=== PATIENT | male | born 1945 | race Caucasian/White ===

== ENCOUNTER 2017-04-25 14:09 | Inpatient (IN) | payer MEDICARE ==
[2017-04-25] MEDS ORDERED: ACETAMINOPHEN TAB 500 MG TAB PO STA (14:44)
[2017-04-25] MEDS ORDERED: HYDROmorphone 1 MG/ML 1 ML SYRINGE IVP STA ×2 (14:45)
--- NOTE | 2017-04-25 14:51 | ED ---
General Adult HPI - General Chief complaint: Extremity Injury, Lower Stated complaint: R leg swelling Time Seen by Provider: 04/25/17 14:26 Source: patient, EMS, RN notes reviewed Mode of arrival: EMS Limitations: no limitations - History of Present Illness Initial comments: Patient is a pleasant 72-year-old male presenting to the emergency Department with complaints of right leg pain. Patient states he felt unwell last night and could no longer walk. Patient laid down on the ground. Patient states he has been lying on the ground since that time. Patient is somewhat a poor historian. Patient has not drank anything since last night and feels thirsty. Patient does complain of severe right leg pain. Patient does have history of chronic right leg problems and has had wound care however he does not know who did wound care. Patient does have a history of atrial fibrillation. Patient has pain with movement of the right leg however denies weakness. Patient is unaware of any fevers. Patient states he laid on the ground all night because he was too weak to get up and move around. - Related Data Home Medications Medication Instructions Recorded Confirmed Digoxin [Lanoxin] 125 mcg PO DAILY 12/29/14 04/25/17 Simvastatin [Zocor] 20 mg PO HS 12/29/14 04/25/17 ALPRAZolam [Xanax] 0.25 mg PO BID 04/25/17 04/25/17 Furosemide [Lasix] 20 mg PO BID 04/25/17 04/25/17 Hydrocodone/Acetaminophen [[place] 1 tab PO Q4H 04/25/17 04/25/17 10-325] Lisinopril [Prinivil] 10 mg PO DAILY 04/25/17 04/25/17 Previous Rx's Medication Instructions Recorded Metoprolol Tartrate [Lopressor] 50 mg PO BID tab 01/09/15 Tamsulosin [Flomax] 0.4 mg PO BID cap.er.24h 01/09/15 Allergies Allergy/AdvReac Type Severity Reaction Status Date / Time Sulfa (Sulfonamide Allergy Anaphylaxis Verified 04/25/17 14:25 Antibiotics) Anesthetics - Noemi Type- AdvReac Anaphylaxis Verified 04/25/17 14:25 Parabens [Anesthetics - Noemi Type] celecoxib [From Celebrex] AdvReac Unknown Verified 04/25/17 14:25 Review of Systems ROS Statement: Those systems with pertinent positive or pertinent negative responses have been documented in the HPI. ROS Other: All systems not noted in ROS Statement are negative. Constitutional: Denies: chills Eyes: Denies: eye pain ENT: Denies: ear pain Respiratory: Denies: cough Cardiovascular: Denies: chest pain Endocrine: Reports: fatigue Gastrointestinal: Denies: abdominal pain Genitourinary: Denies: dysuria Musculoskeletal: Denies: back pain Skin: Reports: rash Neurological: Denies: headache Past Medical History Past Medical History: GERD/Reflux, Hyperlipidemia, Hypertension, Memory Impairment, Osteoarthritis (OA), Prostate Disorder Additional Past Medical History / Comment(s): Coronary artery disease with previous bypass surgery and a mitral valve replacement surgery with tissue valve approximately 25 years ago, severe degenerative arthritis, dementia, BPH, hypertension History of Any Multi-Drug Resistant Organisms: None Reported Past Surgical History: Cardiac Valve Replacement, Cholecystectomy, Heart Catheterization, Orthopedic Surgery Additional Past Surgical History / Comment(s): PIG VALVE, CATARACT-LENS IMPLANTS Past Anesthesia/Blood Transfusion Reactions: Previous Problems w/ Anesthesia Additional Past Anesthesia/Blood Transfusion Reaction / Comment(s): HAD SEVERE BLOOD PRESSURE PROBLEMS AFTER GALLBLADDER SX Past Psychological History: Depression Smoking Status: Former smoker Past Drug Use History: None Reported - Past Family History Father Family Medical History: Unable to Obtain Mother Family Medical History: Unable to Obtain General Exam Limitations: no limitations General appearance: alert, in distress (Patient does appear uncomfortable.) Head exam: Present: atraumatic, normocephalic Eye exam: Present: normal appearance, PERRL ENT exam: Present: mucous membranes dry Neck exam: Present: normal inspection Respiratory exam: Present: normal lung sounds bilaterally Cardiovascular Exam: Present: tachycardia GI/Abdominal exam: Present: soft. Absent: tenderness Extremities exam: Present: other (Right leg with mild diffuse swelling, moderate of the foot. Moderate to severe diffuse tenderness. There is erythema from the foot to the knee region with streaking towards the groin. There are some stage I/2 skin ulcers. There is some purplish discoloration of toes and fingers bilaterally. Cap refill 3 seconds on all digits. Pulses diminished throughout.) Back exam: Present: normal inspection Neurological exam: Present: alert Psychiatric exam: Present: normal affect, normal mood Skin exam: Present: erythema Course Vital Signs 04/25/17 04/25/17 04/25/17 14:18 14:44 15:20 Temperature 101.4 F H Pulse Rate 140 H 140 H 140 H Pulse Rate [ Tank Pumper ] Respiratory 20 20 20 Rate Blood Pressure 94/78 113/86 99/73 O2 Sat by Pulse 93 L 93 L 91 L Oximetry 04/25/17 15:24 Temperature Pulse Rate Pulse Rate [ 144 H Tank Pumper ] Respiratory Rate Blood Pressure O2 Sat by Pulse Oximetry - Reevaluation(s) Reevaluation #1: 04/25/17 14:58 Patient does meet sepsis criteria diagnosed at 1458. Lactic acid and blood cultures have been ordered. Antibiotics will be started. Case was discussed in detail with Dr. Mireles who is familiar with this patient. He does recommend antibiotics and consult with infectious disease Dr. isaac who has previously seen this patient. No need for vascular consult at this time. He feels the patient needs to go to ICU then consult Dr. Starks. 04/25/17 15:05 Case was also discussed in detail with Dr. Funez with infectious disease. He states he will consult and does agree with Zosyn and vancomycin at this time. 04/25/17 15:11 Bilateral pedal pulses are confirmed with Doppler. 04/25/17 15:22 Elevated lactic acid. Patient does meet criteria for septic shock. 04/25/17 15:23 Case also discussed in detail with Dr. Starks, who will consult for critical care. 04/25/17 15:55 Patient was again reevaluated and updated. Dr. Funez has arrived to evaluate patient. He does recommend adding computed tomography scan of the foot. EKG Findings - EKG Comments: EKG Findings:: A. fib with RVR, rate 152. QRS 146. QT 308. QTC 49. Normal axis. Right bundle branch block. Nonspecific ST-T. Procedures - Sepsis Sepsis Focused Exam #1 Time Sepsis Criteria Met: 14:58 Sepsis Focused Exam Date: 04/25/17 Sepsis Focused Exam Time: 15:23 Sepsis Focused Exam Complete: Yes Vital Signs & RN Notes Reviewed: Yes Capillary Refill: > 2 Seconds: Fingers, Toes Peripheral Pulses: Weak: Radial (R), Radial (L), Posterior Tibialis (R), Posterior Tibialis (L), Dorsalis Pedis (R), Dorsalis Pedis (L) Skin Color: Cyanotic Respiratory Exam: normal lung sounds Cardiovascular Exam: tachycardia Medical Decision Making - Lab Data Result diagrams: 04/25/17 14:40 04/25/17 14:40 Lab Results 04/25/17 04/25/17 04/25/17 Range/Units 14:40 14:40 14:40 WBC 19.6 H (3.8-10.6) k/uL RBC 4.68 (4.30-5.90) m/uL Hgb 13.1 (13.0-17.5) gm/dL Hct 40.9 (39.0-53.0) % MCV 87.4 (80.0-100.0) fL MCH 28.0 (25.0-35.0) pg MCHC 32.1 (31.0-37.0) g/dL RDW 17.7 H (11.5-15.5) % Plt Count 128 L (150-450) k/uL Neutrophils % 95 % Lymphocytes % 2 % Monocytes % 2 % Eosinophils % 0 % Basophils % 0 % Neutrophils # 18.6 H (1.3-7.7) k/uL Lymphocytes # 0.5 L (1.0-4.8) k/uL Monocytes # 0.4 (0-1.0) k/uL Eosinophils # 0.0 (0-0.7) k/uL Basophils # 0.0 (0-0.2) k/uL Anisocytosis Slight PT (9.0-12.0) sec INR (<1.2) APTT (22.0-30.0) sec Sodium 126 L (137-145) mmol/L Potassium 5.2 H (3.5-5.1) mmol/L Chloride 97 L (98-107) mmol/L Carbon Dioxide 19 L (22-30) mmol/L Anion Gap 10 mmol/L BUN 44 H (9-20) mg/dL Creatinine 1.40 H (0.66-1.25) mg/dL Est GFR (MDRD) Af Amer >60 (>60 ml/min/1.73 sqM) Est GFR (MDRD) Non-Af 50 (>60 ml/min/1.73 sqM) Glucose 349 H (74-99) mg/dL Plasma Lactic Acid Javier (0.7-2.0) mmol/L Calcium 8.5 (8.4-10.2) mg/dL Total Bilirubin 1.2 (0.2-1.3) mg/dL AST 59 (17-59) U/L ALT 65 (21-72) U/L Alkaline Phosphatase 80 (38-126) U/L Total Creatine Kinase 323 H (55-170) U/L CK-MB (CK-2) 8.7 H* (0.0-2.4) ng/mL CK-MB (CK-2) Rel Index 2.7 Troponin I 0.232 H* (0.000-0.034) ng/mL Total Protein 4.9 L (6.3-8.2) g/dL Albumin 3.0 L (3.5-5.0) g/dL 04/25/17 04/25/17 Range/Units 14:40 14:40 WBC (3.8-10.6) k/uL RBC (4.30-5.90) m/uL Hgb (13.0-17.5) gm/dL Hct (39.0-53.0) % MCV (80.0-100.0) fL MCH (25.0-35.0) pg MCHC (31.0-37.0) g/dL RDW (11.5-15.5) % Plt Count (150-450) k/uL Neutrophils % % Lymphocytes % % Monocytes % % Eosinophils % % Basophils % % Neutrophils # (1.3-7.7) k/uL Lymphocytes # (1.0-4.8) k/uL Monocytes # (0-1.0) k/uL Eosinophils # (0-0.7) k/uL Basophils # (0-0.2) k/uL Anisocytosis PT 12.8 H (9.0-12.0) sec INR 1.3 H (<1.2) APTT 27.4 (22.0-30.0) sec Sodium (137-145) mmol/L Potassium (3.5-5.1) mmol/L Chloride (98-107) mmol/L Carbon Dioxide (22-30) mmol/L Anion Gap mmol/L BUN (9-20) mg/dL Creatinine (0.66-1.25) mg/dL Est GFR (MDRD) Af Amer (>60 ml/min/1.73 sqM) Est GFR (MDRD) Non-Af (>60 ml/min/1.73 sqM) Glucose (74-99) mg/dL Plasma Lactic Acid Javier 4.7 H* (0.7-2.0) mmol/L Calcium (8.4-10.2) mg/dL Total Bilirubin (0.2-1.3) mg/dL AST (17-59) U/L ALT (21-72) U/L Alkaline Phosphatase (38-126) U/L Total Creatine Kinase (55-170) U/L CK-MB (CK-2) (0.0-2.4) ng/mL CK-MB (CK-2) Rel Index Troponin I (0.000-0.034) ng/mL Total Protein (6.3-8.2) g/dL Albumin (3.5-5.0) g/dL Critical Care Time Critical Care Time: Yes Total Critical Care Time: 60 Disposition Clinical Impression: Septic shock, Cellulitis of right leg, Renal insufficiency, Atrial fibrillation with RVR Disposition: ADMITTED IP TO THIS [facility] Condition: Critical Referrals: Nicho Mireles MD [Primary Care Provider] - 1-2 days Decision Time: 15:57
[2017-04-25] MEDS: SODIUM CHLORIDE 0.9% 500 ML IV SCH ×2 (14:55→14:56)
[2017-04-25 15:00] LABS: Anisocytosis Slight; Basophils % (A) 0 %; CHCM 32.1; Eosinophils % (A) 0 %; HCT 40.9 % (39.0-53.0); HDW 2.56; HGB 13.1 gm/dL (13.0-17.5); Luc # (Auto) 0.11; Luc % (Auto) 1; Lymphocytes # (A) 0.5 k/uL (1.0-4.8); Lymphocytes % (A) 2 %; MCHC 32.1 g/dL (31.0-37.0); MCV 87.4 fL (80.0-100.0); Monocytes # (A) 0.4 k/uL (0-1.0); Monocytes % (A) 2 %; Neutrophils # (A) 18.6 k/uL (1.3-7.7); Neutrophils % (A) 95 %; RBC 4.68 m/uL (4.30-5.90); RDW 17.7 % (11.5-15.5); WBC 19.6 k/uL (3.8-10.6); WBC (Perox) 20.72
[2017-04-25] MEDS ORDERED: PIPERACILLIN-TAZOBACTAM 3.375 GM in DEXTROSE/WATER 1 50ML.BAG IVPB STA (15:02)
[2017-04-25] MEDS ORDERED: VANCOMYCIN IV PER PHARMACY 1 EACH MISC MISCELLANE PRN (15:02)
[2017-04-25 15:09] LABS: ALT 65 U/L (21-72); AST 59 U/L (17-59); Alkaline Phosphatase 80 U/L (38-126); Anion Gap 10 mmol/L; Blood Urea Nitrogen 44 mg/dL (9-20); Calcium 8.5 mg/dL (8.4-10.2); Carbon Dioxide 19 mmol/L (22-30); Chloride 97 mmol/L (98-107); Glucose 349 mg/dL (74-99); Non-African American GFR(MDRD) 50 (>60 ml/min/1.73 sqM); Potassium 5.2 mmol/L (3.5-5.1); Sodium 126 mmol/L (137-145); Total Bilirubin 1.2 mg/dL (0.2-1.3); Total Protein 4.9 g/dL (6.3-8.2)
[2017-04-25 15:11] LABS: INR 1.3 (<1.2); Partial Thromboplastin Time 27.4 sec (22.0-30.0); Prothrombin Time 12.8 sec (9.0-12.0)
[2017-04-25 15:39] LABS: Creatine Kinase MB 8.7 ng/mL (0.0-2.4); Troponin I 0.232 ng/mL (0.000-0.034)
--- NOTE | 2017-04-25 15:40 | XR ---
EXAMINATION TYPE: XR chest 2V DATE OF EXAM: 04/25/2017 COMPARISON: 01/06/2015 HISTORY: 72-year-old male with fever and leg cellulitis TECHNIQUE: AP and lateral views FINDINGS: Median sternotomy wires are present. Heart is borderline to mildly enlarged. Mild diffuse interstitia l prominence and peribronchial cuffing. No vera consolidation or pleural effusion. IMPRESSION: 1. Borderline to mild cardiomegaly. 2. Interstitial prominence. Correlate for possible etiologies including mild CHF, bronchitis, uncontr olled asthma, or atypical pneumonias.
[2017-04-25] MEDS ORDERED: LIDOCAINE URO-JET JELLY 2% 5 ML KIT URETHRAL ONE (15:54)
[2017-04-25] MEDS ORDERED: ACETAMINOPHEN TAB 325 MG TAB PO PRN (15:58)
[2017-04-25] MEDS ORDERED: NALOXONE 0.4 MG/ML 1 ML VIAL IV PRN (15:58)
--- NOTE | 2017-04-25 15:58 | XR ---
EXAMINATION TYPE: 2 views right femur. 2 views right tibia/fibula. 3 views right foot DATE OF EXAM: 04/25/2017 COMPARISON: NONE HISTORY: 72-year-old male right leg pain, redness, swelling FINDINGS: Right femur: Mild degenerative changes at the hip. No acute fracture. No periostitis or osteolysis. Tibia/fibula: Mild reticulations in the subcutaneous fat with greater degree of soft tissue swelling about the ankl e. No acute fracture or dislocation. Nonspecific small knee joint effusion. Mild degenerative spurrin g at the ankle. Foot: Marked dorsal soft tissue swelling. No acute fracture or dislocation. No periostitis or osteolysis se en. IMPRESSION: 1. Right femur: Mild right hip osteonecrosis. No acute osseous abnormal. 2. Tibia/fibula: Small nonspecific knee joint effusion. No acute osseous abnormality seen. Soft tissu e swelling greater towards the ankle. 3. Foot: Marked dorsal soft tissue swelling. No acute osseous abnormality seen.
[2017-04-25] MEDS ORDERED: VANCOMYCIN 1,750 MG in SODIUM CHLORIDE 0.9% 250 ML IVPB ONE (16:00)
[2017-04-25] MEDS ORDERED: NOREPINEPHRIN 4 MG-0.9% NS PMX 4 MG/250 ML ML IV SCH (16:30)
[2017-04-25 16:35] LABS: Appearance,Urine Clear (Clear); Bilirubin,Urine Negative (Negative); Glucose,Urine (UA) 4+ (Negative); Ketones,Urine 1+ (Negative); Leukocyte Esterase,Urine Negative (Negative); Mucus,Urine Rare /hpf; Nitrite,Urine Negative (Negative); Particle Count 3580; Protein,Urine 3+ (Negative); Specific Gravity,Urine 1.016 (1.001-1.035); Squamous Epithelial Cell,Urine <1 /hpf (0-4); UA Billing (MACRO vs. MICRO) MICRO; WBC,Urine 2 /hpf (0-5)
[2017-04-25 17:27] LABS: Glucose,Whole Blood 305 mg/dL (75-99)
[2017-04-25] MEDS: SODIUM CHLORIDE 0.9% 1,000 ML IV SCH (17:30)
[2017-04-25] MEDS: HYDROmorphone 1 MG/ML 1 ML SYRINGE IVP PRN (17:54)
[2017-04-25] MEDS: INSULIN LISPRO (humaLOG) 300 UNIT/3 ML VIAL SQ SCH ×2 (18:40→21:25)
[2017-04-25] MEDS: DILTIAZEM 125 MG in SODIUM CHLORIDE 0.9% 100 ML IV SCH (18:48)
[2017-04-25] MEDS: HEPARIN SODIUM,PORCINE 5,000 UNIT/ML 1 ML VIAL SQ SCH (18:49)
--- NOTE | 2017-04-25 19:00 | CT ---
EXAMINATION TYPE: CT lower extremity RT wo con DATE OF EXAM: 04/25/2017 COMPARISON: NONE HISTORY: Right hip pain with swelling/redness to lower tib-fib area. CT DLP: 2068.3 mGycm Automated exposure control for dose reduction was used. Unenhanced CT of the right lower extremity was performed from the right groin through the ankle. The lack of contrast as well as patient motion limits evaluation. Bone and soft tissue window settings ar e submitted in the axial coronal and sagittal planes. FINDINGS: There is subcutaneous edema extending from the right knee distally to the right ankle/midfoot. The fi ndings are felt to reflect cellulitis. I do not see evidence for drainable collection to suggest absc ess at this time. There is no evidence for fracture or dislocation. Small joint effusion is seen abou t the right knee. No bony destructive process to suggest osteomyelitis. IMPRESSION: FINDINGS FELT TO REFLECT BELOW THE KNEE CELLULITIS.
[2017-04-25] MEDS ORDERED: SODIUM CHLORIDE 0.9% 1,000 ML IV ONE (21:00)
[2017-04-25 21:21] LABS: Glucose,Whole Blood 256 mg/dL (75-99)
--- NOTE | 2017-04-25 22:34 | CONS ---
CONSULTATION DATE OF SERVICE: 04/25/2017. REASON FOR CONSULTATION: Septic shock and right lower extremity cellulitis. HISTORY OF PRESENT ILLNESS: The patient is a 72-year-old male well-known to my service from recent episodes of right lower extremity venous stasis ulcers and secondary cellulitis, presenting in to the [facility] ER with chief complaints of right leg swelling and redness, feeling very weak and tired. The patient's symptoms have been getting worse for the last 1 day. No clear history of any trauma. The patient says he felt unwell and laid down on the ground and has been lying on the ground since then, unable to get up. The patient denies any history of trauma. Pain to the leg has been severe, throbbing, sharp, almost 7/10 to 8/10, no radiation. The patient did have some skin breakdown; however, unable to tell me exactly what happened. Did not recall any fever at home; however, in the ER, the patient noticed to have fever of 102 degrees Fahrenheit. The patient noticed to be septic with elevated white count and hypotension requiring multiple fluid boluses. The patient did have x-rays of the leg with no evidence of any fracture, though did show significant soft tissue swelling of the dorsum of the right foot. The patient was started on broad-spectrum antibiotics in the form of vancomycin and Zosyn. The patient's CPKs were also significantly elevated. I did evaluate the patient in the ER and did order a CT of the right foot. The patient had no evidence of any necrotizing fasciitis, which came back suggestive of soft tissue swelling but no evidence of any drainable abscess. REVIEW OF SYSTEMS: CONSTITUTIONAL: Positive for weakness and chills. EYES: No complaint. ENT: No complaint. RESPIRATORY: Some shortness of breath. CARDIOVASCULAR: No complaint. GENITOURINARY: No complaint. GASTROINTESTINAL: No complaint. MUSCULOSKELETAL: As per HPI. INTEGUMENTARY: As per HPI. PSYCHOLOGICAL: No complaint. ENDOCRINE: No complaint. NEUROLOGIC: No complaint. PAST MEDICAL HISTORY: Significant for significant for hypertension, hyperlipidemia, coronary artery disease, gastroesophageal reflux disease, benign prostatic hypertrophy, dementia, venous stasis ulcers of the leg. PAST SURGICAL HISTORY: Coronary artery bypass grafting, history of PTCA and stenting, cardiac mitral valve replacement, cholecystectomy, cataract surgery. SOCIAL HISTORY: Remote history of smoking. No drinking or drug use. FAMILY HISTORY: No pertinent findings noticed. ALLERGIC TO SULFA. MEDICATION: Include the patient is currently on: 1. Vancomycin, pharmacy to dose. 2. He is on Tylenol. 3. Diltiazem. 4. Heparin. 5. Dilaudid. 6. Humalog. 7. Narcan. 8. Pip/tazobactam. EXAMINATION: His blood pressure is 110/82 with a pulse of 122, temperature of 98, T-max of 101. He is 99% 2L nasal cannula. GENERAL DESCRIPTION: An elderly male lying in bed in no distress. No tachypnea or accessory muscle of respiration use. HEENT: Shows no pallor or scleral icterus. Oral mucosa is dry. NECK: Trachea is central. No thyromegaly. LUNGS: Unlabored breathing. Clear to auscultation anteriorly. No wheeze or crackle. HEART: S1, S2. Regular rate and rhythm. ABDOMEN: Soft. No tenderness. No guarding or rigidity. EXTREMITIES: Right leg with swelling and redness, mostly marking the dorsum of the right foot. He did have some excoriation of the right lower leg area. Foot is warm, red and tender. NEUROLOGICAL: Patient is awake, alert, oriented x2. Mood and affect normal. LABS: Hemoglobin 13.1, white count 19.6. BUN of 44, creatinine 1.40. Lactic acid was 4.7. Liver enzymes are normal. Urine is negative. Blood culture obtained currently pending. X-ray report as mentioned above. DIAGNOSTIC IMPRESSION AND PLAN: Patient with sepsis and septic shock and the patient did have a fever, tachycardia, hypertension, elevated lactic acid. Source is extensive right lower extremity cellulitis. CT failed to review any evidence of a necrotizing fasciitis or any abscess. The likely organism we grow will be gram-positive skin rober and less likely gram-negative, although cannot be entirely excluded. PLAN: 1. Christopher the area of the redness. 2. Patient will be given broad-spectrum antibiotics in the form of vancomycin, pharmacy to dose, and Zosyn while waiting for his condition to stabilize. 3. Will follow up on his clinical condition and culture to further adjust medication if needed. Thank you for this consultation. Will follow this patient along with you. MMODL / IJN: [id number] / [id number]
[2017-04-26] MEDS: PIPERACILLIN-TAZOBACTAM 3.375 GM in DEXTROSE/WATER 1 50ML.BAG IVPB SCH ×3 (00:28→16:57)
[2017-04-26] MEDS: HEPARIN SODIUM,PORCINE 5,000 UNIT/ML 1 ML VIAL SQ SCH ×2 (00:28→08:44)
[2017-04-26 04:18] LABS: Anisocytosis Slight; Basophils % (A) 0 %; CH 27.4; CHCM 31.7; Eosinophils % (A) 0 %; HCT 38.3 % (39.0-53.0); HDW 2.72; HGB 12.1 gm/dL (13.0-17.5); Luc # (Auto) 0.11; Luc % (Auto) 1; Lymphocytes # (A) 0.4 k/uL (1.0-4.8); Lymphocytes % (A) 3 %; MCH 27.4 pg (25.0-35.0); MCHC 31.6 g/dL (31.0-37.0); MCV 86.7 fL (80.0-100.0); Monocytes # (A) 0.5 k/uL (0-1.0); Monocytes % (A) 4 %; Neutrophils # (A) 12.8 k/uL (1.3-7.7); Neutrophils % (A) 92 %; RBC 4.42 m/uL (4.30-5.90); RDW 17.4 % (11.5-15.5); WBC 13.9 k/uL (3.8-10.6); WBC (Perox) 14.58
[2017-04-26 04:54] LABS: Anion Gap 6 mmol/L; Blood Urea Nitrogen 40 mg/dL (9-20); Calcium 8.1 mg/dL (8.4-10.2); Carbon Dioxide 21 mmol/L (22-30); Chloride 104 mmol/L (98-107); Glucose 110 mg/dL (74-99); Magnesium 1.4 mg/dL (1.6-2.3); Non-African American GFR(MDRD) 60 (>60 ml/min/1.73 sqM); Phosphorus 3.2 mg/dL (2.5-4.5); Potassium 4.7 mmol/L (3.5-5.1); Sodium 131 mmol/L (137-145)
[2017-04-26 05:24] LABS: Manual Review Performed
[2017-04-26] MEDS: HYDROmorphone 1 MG/ML 1 ML SYRINGE IVP PRN ×7 (05:30→23:11)
[2017-04-26] MEDS ORDERED: Magnesium Replacement Protocol 1 EACH MISC MISCELLANE PRN (05:32)
[2017-04-26] MEDS ORDERED: VANCOMYCIN 1,500 MG in SODIUM CHLORIDE 0.9% 250 ML IVPB SCH (06:00)
--- NOTE | 2017-04-26 07:25 | XR ---
EXAMINATION TYPE: XR chest 1V DATE OF EXAM: 04/26/2017 COMPARISON: 04/25/2017 HISTORY: Fever TECHNIQUE: Single frontal view of the chest is obtained. FINDINGS: Although there is no focal airspace disease there is persistent interstitial prominence an d peribronchial cuffing centrally, most pronounced in the suprahilar regions. Heart is again mildly e nlarged. Lung volumes are similar to the prior. No pleural effusion or pneumothorax. Postsurgical edmund nges are seen of the chest from prior coronary artery bypass. Degenerative changes of the acromioclav icular joints and thoracic spine are moderate. IMPRESSION: Persistent central peribronchial cuffing and interstitial prominence as seen on the prio r that could relate to early pulmonary edema, atypical pneumonitis, or bronchitis.
[2017-04-26] MEDS: MAGNESIUM SULFATE-D5W PMX 1 GM in DEXTROSE/WATER 1 100ML.BAG IVPB SCH ×3 (08:24→10:50)
[2017-04-26] MEDS: SODIUM CHLORIDE 0.9% 1,000 ML IV SCH ×3 (08:25→23:12)
[2017-04-26] MEDS: VANCOMYCIN 1,500 MG in SODIUM CHLORIDE 0.9% 250 ML IVPB SCH ×2 (08:29→21:04)
[2017-04-26] MEDS: INSULIN LISPRO (humaLOG) 300 UNIT/3 ML VIAL SQ SCH ×2 (08:46→12:27)
[2017-04-26 08:47] LABS: Glucose,Whole Blood 118 mg/dL (75-99)
--- NOTE | 2017-04-26 08:59 | P.CNOR ---
History of Present Illness - HPI Consult date: 04/26/17 History of present illness: This is a 72-year-old male admitted to the ICU for septic shock and cellulitis. Patient states he has had swelling to bilateral lower extremities along with chronic wounds. Patient states he has been treated in the past for these wounds , but they continued to get worse. Patient states the right lower extremity is extremely sensitive to light touch. Patient states he also feels very weak. Patient states he has chronic right hip pain but this is no worse than usual. Patient's past medical history significant for diabetes. Patient denies any recent fever, chills, abdominal pain, nausea/vomiting/diarrhea, back pain, hematuria, headache, or visual changes, or any other complaints. Review of Systems See HPI. Past Medical History Past Medical History: GERD/Reflux, Hyperlipidemia, Hypertension, Memory Impairment, Osteoarthritis (OA), Prostate Disorder Additional Past Medical History / Comment(s): Coronary artery disease with previous bypass surgery and a mitral valve replacement surgery with tissue valve approximately 25 years ago, severe degenerative arthritis, dementia, BPH, hypertension History of Any Multi-Drug Resistant Organisms: None Reported Past Surgical History: Cardiac Valve Replacement, Cholecystectomy, Heart Catheterization, Orthopedic Surgery Additional Past Surgical History / Comment(s): PIG VALVE, CATARACT-LENS IMPLANTS Past Anesthesia/Blood Transfusion Reactions: Previous Problems w/ Anesthesia Additional Past Anesthesia/Blood Transfusion Reaction / Comm: HAD SEVERE BLOOD PRESSURE PROBLEMS AFTER GALLBLADDER SX Smoking Status: Current some day smoker - Past Family History Father Family Medical History: Unable to Obtain Mother Family Medical History: Unable to Obtain Medications and Allergies Home Medications Medication Instructions Recorded Confirmed Type Digoxin [Lanoxin] 125 mcg PO DAILY 12/29/14 04/25/17 History Simvastatin [Zocor] 20 mg PO HS 12/29/14 04/25/17 History Metoprolol Tartrate [Lopressor] 50 mg PO BID tab 01/09/15 04/25/17 Rx Tamsulosin [Flomax] 0.4 mg PO BID cap.er.24h 01/09/15 04/25/17 Rx ALPRAZolam [Xanax] 0.25 mg PO BID 04/25/17 04/25/17 History Furosemide [Lasix] 20 mg PO BID 04/25/17 04/25/17 History Hydrocodone/Acetaminophen [Seward 1 tab PO Q4H 04/25/17 04/25/17 History 10-325] Lisinopril [Prinivil] 10 mg PO DAILY 04/25/17 04/25/17 History Allergies Allergy/AdvReac Type Severity Reaction Status Date / Time Sulfa (Sulfonamide Allergy Anaphylaxis Verified 04/25/17 14:25 Antibiotics) Anesthetics - Noemi Type- AdvReac Anaphylaxis Verified 04/25/17 14:25 Parabens [Anesthetics - Noemi Type] celecoxib [From Celebrex] AdvReac Unknown Verified 04/25/17 14:25 Physical Examination On inspection there is evidence of cellulitis to bilateral lower extremities, right worse than left. Right lower extremity with swelling and erythema. Right lower extremity is very sensitive to light touch. There are chronic wounds to the right lower extremity. Patient has limited range of motion of the right foot and ankle due to swelling and pain. Results X-rays of the right femur are reviewed and there is evidence of mild to moderate osteonecrosis of the right hip. X-rays of the right tibia/fibula and right foot are reviewed showing no evidence for osteonecrosis, fracture or dislocation. - Labs Labs: Abnormal Lab Results - Last 24 Hours (Table) 04/25/17 04/25/17 04/25/17 Range/Units 14:40 14:40 14:40 WBC 19.6 H (3.8-10.6) k/uL Hgb (13.0-17.5) gm/dL Hct (39.0-53.0) % RDW 17.7 H (11.5-15.5) % Plt Count 128 L (150-450) k/uL Neutrophils # 18.6 H (1.3-7.7) k/uL Lymphocytes # 0.5 L (1.0-4.8) k/uL PT (9.0-12.0) sec INR (<1.2) Sodium 126 L (137-145) mmol/L Potassium 5.2 H (3.5-5.1) mmol/L Chloride 97 L (98-107) mmol/L Carbon Dioxide 19 L (22-30) mmol/L BUN 44 H (9-20) mg/dL Creatinine 1.40 H (0.66-1.25) mg/dL Glucose 349 H (74-99) mg/dL POC Glucose (mg/dL) (75-99) mg/dL Plasma Lactic Acid Javier (0.7-2.0) mmol/L Calcium (8.4-10.2) mg/dL Magnesium (1.6-2.3) mg/dL Total Creatine Kinase 323 H (55-170) U/L CK-MB (CK-2) 8.7 H* (0.0-2.4) ng/mL Troponin I 0.232 H* (0.000-0.034) ng/mL Total Protein 4.9 L (6.3-8.2) g/dL Albumin 3.0 L (3.5-5.0) g/dL Urine Protein (Negative) Urine Glucose (UA) (Negative) Urine Ketones (Negative) Hyaline Casts (0-2) /lpf Urine Mucus (None) /hpf 04/25/17 04/25/17 04/25/17 Range/Units 14:40 14:40 16:10 WBC (3.8-10.6) k/uL Hgb (13.0-17.5) gm/dL Hct (39.0-53.0) % RDW (11.5-15.5) % Plt Count (150-450) k/uL Neutrophils # (1.3-7.7) k/uL Lymphocytes # (1.0-4.8) k/uL PT 12.8 H (9.0-12.0) sec INR 1.3 H (<1.2) Sodium (137-145) mmol/L Potassium (3.5-5.1) mmol/L Chloride (98-107) mmol/L Carbon Dioxide (22-30) mmol/L BUN (9-20) mg/dL Creatinine (0.66-1.25) mg/dL Glucose (74-99) mg/dL POC Glucose (mg/dL) (75-99) mg/dL Plasma Lactic Acid Javier 4.7 H* (0.7-2.0) mmol/L Calcium (8.4-10.2) mg/dL Magnesium (1.6-2.3) mg/dL Total Creatine Kinase (55-170) U/L CK-MB (CK-2) (0.0-2.4) ng/mL Troponin I (0.000-0.034) ng/mL Total Protein (6.3-8.2) g/dL Albumin (3.5-5.0) g/dL Urine Protein 3+ H (Negative) Urine Glucose (UA) 4+ H (Negative) Urine Ketones 1+ H (Negative) Hyaline Casts 9 H (0-2) /lpf Urine Mucus Rare H (None) /hpf 04/25/17 04/25/17 04/25/17 Range/Units 17:25 19:05 21:20 WBC (3.8-10.6) k/uL Hgb (13.0-17.5) gm/dL Hct (39.0-53.0) % RDW (11.5-15.5) % Plt Count (150-450) k/uL Neutrophils # (1.3-7.7) k/uL Lymphocytes # (1.0-4.8) k/uL PT (9.0-12.0) sec INR (<1.2) Sodium (137-145) mmol/L Potassium (3.5-5.1) mmol/L Chloride (98-107) mmol/L Carbon Dioxide (22-30) mmol/L BUN (9-20) mg/dL Creatinine (0.66-1.25) mg/dL Glucose (74-99) mg/dL POC Glucose (mg/dL) 305 H 256 H (75-99) mg/dL Plasma Lactic Acid Javier 2.9 H* (0.7-2.0) mmol/L Calcium (8.4-10.2) mg/dL Magnesium (1.6-2.3) mg/dL Total Creatine Kinase (55-170) U/L CK-MB (CK-2) (0.0-2.4) ng/mL Troponin I (0.000-0.034) ng/mL Total Protein (6.3-8.2) g/dL Albumin (3.5-5.0) g/dL Urine Protein (Negative) Urine Glucose (UA) (Negative) Urine Ketones (Negative) Hyaline Casts (0-2) /lpf Urine Mucus (None) /hpf 04/26/17 04/26/17 Range/Units 03:51 03:51 WBC 13.9 H (3.8-10.6) k/uL Hgb 12.1 L (13.0-17.5) gm/dL Hct 38.3 L (39.0-53.0) % RDW 17.4 H (11.5-15.5) % Plt Count 83 L (150-450) k/uL Neutrophils # 12.8 H (1.3-7.7) k/uL Lymphocytes # 0.4 L (1.0-4.8) k/uL PT (9.0-12.0) sec INR (<1.2) Sodium 131 L (137-145) mmol/L Potassium (3.5-5.1) mmol/L Chloride (98-107) mmol/L Carbon Dioxide 21 L (22-30) mmol/L BUN 40 H (9-20) mg/dL Creatinine (0.66-1.25) mg/dL Glucose 110 H (74-99) mg/dL POC Glucose (mg/dL) (75-99) mg/dL Plasma Lactic Acid Javier (0.7-2.0) mmol/L Calcium 8.1 L (8.4-10.2) mg/dL Magnesium 1.4 L (1.6-2.3) mg/dL Total Creatine Kinase (55-170) U/L CK-MB (CK-2) (0.0-2.4) ng/mL Troponin I (0.000-0.034) ng/mL Total Protein (6.3-8.2) g/dL Albumin (3.5-5.0) g/dL Urine Protein (Negative) Urine Glucose (UA) (Negative) Urine Ketones (Negative) Hyaline Casts (0-2) /lpf Urine Mucus (None) /hpf Microbiology - Last 24 Hours (Table) 04/25/17 16:10 Urine Culture - Preliminary Urine,Catheterized 04/25/17 14:40 Gram Stain - Preliminary Leg - Right Wound Culture - Preliminary H & H 04/25/17 04/26/17 Range/Units 14:40 03:51 Hgb 13.1 12.1 L (13.0-17.5) gm/dL Hct 40.9 38.3 L (39.0-53.0) % Coagulation 04/25/17 Range/Units 14:40 INR 1.3 H (<1.2) Result Diagrams: 04/26/17 03:51 04/26/17 03:51 Assessment and Plan (1) Cellulitis of right leg Current Visit: Yes Status: Acute Code(s): L03.115 - CELLULITIS OF RIGHT LOWER LIMB SNOMED Code(s): 807340697 Plan: #1. X-rays of the right femur show [id number] osteonecrosis of the right hip. Patient reports chronic pain of the right hip that is no worse than usual. Do not believe this to be an infection of the right hip. #2. Continue IV antibiotics for right lower extremity cellulitis per infectious disease. #3. No surgical intervention planned at this time.
[2017-04-26] MEDS: PANTOPRAZOLE 40 MG/10 ML VIAL IV SCH (09:16)
--- NOTE | 2017-04-26 11:33 | P.CNPUL ---
History of Present Illness Consult date: 04/26/17 Requesting physician: Nicho Mireles Reason for consult: other (Acute cellulitis and septic shock) Chief complaint: Right leg swelling, redness, and pain History of present illness: This is a 72-year-old white male with history of multiple medical problems including osteoarthritis, hypertension, coronary artery disease and previous CABG, chronic atrial fibrillation, previous mitral valve replacement, history of dementia, patient presented to the ER yesterday with a few weeks history of right leg pain, redness, and swelling. The patient himself is a very poor historian, and he is very hard of hearing. Patient denies any trauma to the right lower extremity. Pain has been getting more severe and throbbing without radiation involving mostly the right lower extremity below the knee extending to the foot and toes. Patient denied any fever , however he had a temp of 102 on presentation. Patient was also noted noted to be hypotensive in the ER, required 4 L of fluid boluses and required placement on norepinephrine for few hours. His norepinephrine was discontinued 6 hours prior to my evaluation. His blood pressures seems to be relatively stable at this point. Patient was also on Cardizem and he remains on Cardizem at 5 mg per hour for atrial fibrillation and RVR. X-rays and CT of the right leg failed to show necrotizing fasciitis, they all showed mostly swelling of the soft tissue, and no evidence of abscess to drain. Considering the presentation of severe cellulitis involving the right lower extremity, and considering the hypotension requiring fluid boluses and norepinephrine, patient was admitted to the ICU and this consult was initiated. Patient is now on vancomycin and Zosyn, blood cultures are pending. Presently, the patient denies any headache, no blurred vision, no dizziness, denies any chest pain, no shortness of breath, no nausea no vomiting no abdominal pain. Patient is very hard of hearing, complaining of mostly severe pain of the right leg and the right foot, normally takes Kersey at home for his pain control. Review of Systems 14 point review of systems were obtained, please refer to pertinent positives in HPI, otherwise remaining systems are negative or could not be obtained because of his mental status Past Medical History Past Medical History: GERD/Reflux, Hyperlipidemia, Hypertension, Memory Impairment, Osteoarthritis (OA), Prostate Disorder Additional Past Medical History / Comment(s): Coronary artery disease with previous bypass surgery and a mitral valve replacement surgery with tissue valve approximately 25 years ago, severe degenerative arthritis, dementia, BPH, hypertension, history of bilateral pneumonia requiring intubation and mechanical ventilation secondary to Haemophilus influenza in 2015. History of Any Multi-Drug Resistant Organisms: None Reported Past Surgical History: Cardiac Valve Replacement, Cholecystectomy, Heart Catheterization, Orthopedic Surgery Additional Past Surgical History / Comment(s): PIG VALVE, CATARACT-LENS IMPLANTS Past Anesthesia/Blood Transfusion Reactions: Previous Problems w/ Anesthesia Additional Past Anesthesia/Blood Transfusion Reaction / Comment(s): HAD SEVERE BLOOD PRESSURE PROBLEMS AFTER GALLBLADDER SX Smoking Status: Current some day smoker - Past Family History Father Family Medical History: Unable to Obtain Mother Family Medical History: Unable to Obtain Medications and Allergies Home Medications Medication Instructions Recorded Confirmed Type Digoxin [Lanoxin] 125 mcg PO DAILY 12/29/14 04/25/17 History Simvastatin [Zocor] 20 mg PO HS 12/29/14 04/25/17 History Metoprolol Tartrate [Lopressor] 50 mg PO BID tab 01/09/15 04/25/17 Rx Tamsulosin [Flomax] 0.4 mg PO BID cap.er.24h 01/09/15 04/25/17 Rx ALPRAZolam [Xanax] 0.25 mg PO BID 04/25/17 04/25/17 History Furosemide [Lasix] 20 mg PO BID 04/25/17 04/25/17 History Hydrocodone/Acetaminophen [Kersey 1 tab PO Q4H 04/25/17 04/25/17 History 10-325] Lisinopril [Prinivil] 10 mg PO DAILY 04/25/17 04/25/17 History Allergies Allergy/AdvReac Type Severity Reaction Status Date / Time Sulfa (Sulfonamide Allergy Anaphylaxis Verified 04/25/17 14:25 Antibiotics) Anesthetics - Noemi Type- AdvReac Anaphylaxis Verified 04/25/17 14:25 Parabens [Anesthetics - Noemi Type] celecoxib [From Celebrex] AdvReac Unknown Verified 04/25/17 14:25 Physical Exam Vitals: Vital Signs Temp Pulse Pulse Resp BP Pulse Ox 04/26/17 11:00 97 23 113/68 97 04/26/17 10:00 95 20 135/95 100 04/26/17 09:00 83 28 H 135/95 100 04/26/17 08:00 110 H 21 122/80 100 04/26/17 07:45 108 H 13 122/80 92 L 04/26/17 07:30 83 19 122/80 99 04/26/17 07:15 99 25 H 122/80 100 04/26/17 07:00 106 H 24 104/68 99 04/26/17 06:45 99 23 104/68 100 04/26/17 06:30 110 H 15 104/68 98 04/26/17 06:15 96 28 H 104/68 100 04/26/17 06:00 91 24 104/68 99 04/26/17 05:45 82 10 L 104/68 100 04/26/17 05:30 101 H 23 99/79 04/26/17 05:15 105 H 23 147/88 98 04/26/17 05:00 96 32 H 121/88 94 L 04/26/17 04:45 111 H 33 H 134/88 100 04/26/17 04:30 106 H 11 L 128/87 100 04/26/17 04:15 102 H 12 122/89 96 04/26/17 04:00 93 23 99 04/26/17 03:45 79 18 141/82 99 04/26/17 03:30 89 26 H 142/85 100 04/26/17 03:15 87 19 128/79 100 04/26/17 03:00 91 23 117/87 100 04/26/17 02:45 74 17 127/87 100 04/26/17 02:30 79 24 121/82 99 04/26/17 02:15 82 17 119/80 92 L 04/26/17 02:00 82 22 124/92 100 04/26/17 01:45 74 19 135/86 97 04/26/17 01:30 74 20 119/75 100 04/26/17 01:15 82 20 114/77 99 04/26/17 01:00 82 20 112/78 99 04/26/17 00:45 77 12 113/75 99 04/26/17 00:30 84 26 H 115/75 100 04/26/17 00:15 98.3 F 71 13 114/78 100 04/26/17 00:00 81 27 H 122/77 85 L 04/25/17 23:45 76 25 H 105/82 93 L 04/25/17 23:30 72 22 105/74 100 04/25/17 23:15 80 7 L 104/79 100 04/25/17 23:09 77 23 135/100 95 04/25/17 23:00 103 H 14 135/100 100 04/25/17 22:45 91 23 122/84 97 04/25/17 22:30 79 20 120/88 04/25/17 22:15 86 11 L 118/82 100 04/25/17 22:00 99 14 131/84 04/25/17 21:45 118 H 8 L 135/87 98 04/25/17 21:30 93 10 L 137/95 04/25/17 21:15 103 H 19 140/94 100 04/25/17 21:00 101 H 16 126/84 100 04/25/17 20:45 113 H 23 113/79 100 04/25/17 20:30 125 H 8 L 106/76 93 L 04/25/17 20:15 98.5 F 111 H 7 L 109/73 100 04/25/17 20:00 112 H 109 H 17 106/71 98 04/25/17 19:45 120 H 25 H 114/95 99 04/25/17 19:30 102 H 16 117/78 100 04/25/17 19:15 122 H 19 110/82 99 04/25/17 19:00 114 H 22 91/75 98 04/25/17 18:30 125 H 16 108/91 95 04/25/17 18:15 115 H 13 109/82 95 04/25/17 18:00 121 H 23 114/84 98 04/25/17 17:45 112 H 38 H 115/77 98 04/25/17 17:30 98.2 F 120 H 144 H 16 85/71 98 04/25/17 16:47 119 H 20 104/73 99 04/25/17 16:35 107 H 24 79/65 100 04/25/17 16:32 132 H 24 76/52 100 04/25/17 16:01 98.7 F 122 H 24 83/70 100 04/25/17 15:24 144 H 04/25/17 15:20 140 H 20 99/73 91 L 04/25/17 14:44 140 H 20 113/86 93 L 04/25/17 14:18 101.4 F H 140 H 20 94/78 93 L Intake and Output 04/25/17 04/26/17 04/26/17 22:59 06:59 14:59 Intake Total 624.583 217 1788.5 Output Total 435 310 185 Balance 189.625 516 837.5 Intake: IV 520 800 500 Sodium Chloride 0.9% 1, 520 800 500 000 ml @ 100 mls/hr IV . Q10H JADON Rx#:[id number] Intake, IV Titration 104.625 26 222.5 Amount Magnesium Sulfate-D5w Pmx 210 1 gm In Dextrose/Water 1 100ml.bag @ 100 mls/hr IVPB Q1H JADON Rx#: [id number] Norepinephrin 4 mg-0.9% 104.625 26 Ns Pmx 4 mg In 250 ml @ Titrate IV .Q0M JADON Rx#: [id number] Piperacillin-Tazobactam 3 12.5 .375 gm In Dextrose/Water 1 50ml.bag @ 12.5 mls/hr IVPB Q8HR JADON Rx#: [id number] Oral 300 Output: Urine 435 310 185 Uretheral (Franco) 200 Other: Voiding Method Indwelling Catheter Indwelling Catheter Indwelling Catheter Weight 87.5 kg 88.6 kg General appearance: Revealed a 72-year-old white male, in no distress, patient is hard of hearing, complaining mostly of pain of the right foot and the right lower extremity. Head exam: Normocephalic, atraumatic. Looks slightly pale. Eye exam: PERRLA, EOMI, no icterus, pale and dry mucous membranes noted. ENT exam: Pale and dry mucous membranes, otherwise nasal mucosa and oral mucosa is normal. Throat is clear. Neck exam: Short neck, obese, supple, no masses, no JVD, no stridor. Respiratory exam: Clear, diminished at the bases, no rhonchi and no wheezes. No chest wall tenderness. Cardiovascular Exam: Regular rhythm, no S3 gallop, 2/6 systolic murmur throughout the precordium. GI/Abdominal exam: Soft nontender no megaly no rebound no guarding. Extremities exam: Diffuse swelling and erythema of the right foot and the right leg all the way up to the knee, and some erythematous changes noted in the right thigh area. Moderate to severe diffuse tenderness. There is erythema from the foot to the knee region with streaking towards the groin. There are some stage I/2 skin ulcers. There is some purplish discoloration of toes and fingers bilaterally. . Pulses diminished throughout.) Back exam: Unremarkable. Neurological exam: Hard of hearing, otherwise no focal neurologic deficit. Psychiatric exam: Normal mood and affect, normal mental status examination. Skin: Erythema as noted involving the right leg. Results - Laboratory Findings CBC and BMP: 04/26/17 03:51 04/26/17 03:51 PT/INR, D-dimer PT 12.8 sec (9.0-12.0) H 04/25/17 14:40 INR 1.3 (<1.2) H 04/25/17 14:40 Abnormal lab findings: Abnormal Labs 04/25/17 04/25/17 04/25/17 14:40 14:40 14:40 WBC 19.6 H Hgb Hct RDW 17.7 H Plt Count 128 L Neutrophils # 18.6 H Lymphocytes # 0.5 L PT INR Sodium 126 L Potassium 5.2 H Chloride 97 L Carbon Dioxide 19 L BUN 44 H Creatinine 1.40 H Glucose 349 H POC Glucose (mg/dL) Plasma Lactic Acid Javier Calcium Magnesium Total Creatine Kinase 323 H CK-MB (CK-2) 8.7 H* Troponin I 0.232 H* Total Protein 4.9 L Albumin 3.0 L Urine Protein Urine Glucose (UA) Urine Ketones Hyaline Casts Urine Mucus 04/25/17 04/25/17 04/25/17 14:40 14:40 16:10 WBC Hgb Hct RDW Plt Count Neutrophils # Lymphocytes # PT 12.8 H INR 1.3 H Sodium Potassium Chloride Carbon Dioxide BUN Creatinine Glucose POC Glucose (mg/dL) Plasma Lactic Acid Javier 4.7 H* Calcium Magnesium Total Creatine Kinase CK-MB (CK-2) Troponin I Total Protein Albumin Urine Protein 3+ H Urine Glucose (UA) 4+ H Urine Ketones 1+ H Hyaline Casts 9 H Urine Mucus Rare H 04/25/17 04/25/17 04/25/17 17:25 19:05 21:20 WBC Hgb Hct RDW Plt Count Neutrophils # Lymphocytes # PT INR Sodium Potassium Chloride Carbon Dioxide BUN Creatinine Glucose POC Glucose (mg/dL) 305 H 256 H Plasma Lactic Acid Javier 2.9 H* Calcium Magnesium Total Creatine Kinase CK-MB (CK-2) Troponin I Total Protein Albumin Urine Protein Urine Glucose (UA) Urine Ketones Hyaline Casts Urine Mucus 04/26/17 04/26/17 04/26/17 03:51 03:51 08:46 WBC 13.9 H Hgb 12.1 L Hct 38.3 L RDW 17.4 H Plt Count 83 L Neutrophils # 12.8 H Lymphocytes # 0.4 L PT INR Sodium 131 L Potassium Chloride Carbon Dioxide 21 L BUN 40 H Creatinine Glucose 110 H POC Glucose (mg/dL) 118 H Plasma Lactic Acid Javier Calcium 8.1 L Magnesium 1.4 L Total Creatine Kinase CK-MB (CK-2) Troponin I Total Protein Albumin Urine Protein Urine Glucose (UA) Urine Ketones Hyaline Casts Urine Mucus - Diagnostic Findings Chest x-ray: report reviewed Additional studies: Reports of the x-rays of the chest femur foot tibia and fibula and CT of the lower extremity were all reviewed Assessment and Plan Assessment: Impression: 1 acute septic shock from cellulitis of the right lower extremity and right foot. Hence the patient will be kept on broad-spectrum antibiotics for now including vancomycin and Zosyn. Patient was treated as per the septic shock protocol, multiple fluid boluses were given up to 4 L, required norepinephrine for few hours, presently off norepinephrine, and remains on IV fluid at 100 mL per hour. Patient is also on GI and DVT prophylaxis, and he is on heparin subcu. 2 chronic atrial fibrillation, patient is presently on Cardizem drip for A. fib with RVR. Cardiology to address. 3 history of multiple comorbidities including hypertension, hyperlipidemia, osteoarthritis, previous CABG, history of mitral valve replacement, history of dementia, hard of hearing, history of respiratory failure secondary to bilateral pneumonia secondary to Haemophilus influenza back in 2014. Recommendation: Continue present treatment plan including antibiotics, antiarrhythmic agents/Cardizem, heparin, adjust antibiotics based on the final culture, however vancomycin and Zosyn seems to be very appropriate for now. Patient will be monitored in the ICU for the next 24 hours, and if he remains hemodynamically stable, will transfer to a monitored bed on selective. Time with Patient: Greater than 30
--- NOTE | 2017-04-26 12:09 | P.CRDCN ---
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 with an extensive past medical history consistent of valvular heart disease and according to him status post mitral valve replacement, possible coronary artery disease, hypertension, dyslipidemia, and chronic atrial fibrillation currently not on any anticoagulation, presented to the emergency room complaining of right leg discomfort for as well as redness and swelling. The patient himself is a poor historian. He stated that he has been experiencing severe right leg discomfort as well as severe redness of the right leg. Beside that he was spiking fever when he presented to the emergency room. He was feeling very weak over the last several days and as a matter of fact he was unable to get off and stand up. He did not have any symptoms of chest pain or chest discomfort nor shortness of breath. When the patient presented to the emergency room he was diagnosed with severe right lower extremity cellulitis with possible osteomyelitis. An orthopedic surgeon is on the case at this point. Beside that he was very dry and receives 4 L of 0.9 normal saline. We get involved in the care of the patient because when he presented he was in A. fib with RVR which is likely secondary to his dehydration as well as to the temperature. The patient was started on Cardizem and drip. He was hypotensive when he presented and currently he is off the Levophed. The patient is in A. fib with heart rate around 90 bpm. His pressure has been stable. He is not on any anticoagulation. He is on Cardizem at 5 mg per hour. Past Medical History Past Medical History: GERD/Reflux, Hyperlipidemia, Hypertension, Memory Impairment, Osteoarthritis (OA), Prostate Disorder Additional Past Medical History / Comment(s): Coronary artery disease with previous bypass surgery and a mitral valve replacement surgery with tissue valve approximately 25 years ago, severe degenerative arthritis, dementia, BPH, hypertension, history of bilateral pneumonia requiring intubation and mechanical ventilation secondary to Haemophilus influenza in 2015. History of Any Multi-Drug Resistant Organisms: None Reported Past Surgical History: Cardiac Valve Replacement, Cholecystectomy, Heart Catheterization, Orthopedic Surgery Additional Past Surgical History / Comment(s): PIG VALVE, CATARACT-LENS IMPLANTS Past Anesthesia/Blood Transfusion Reactions: Previous Problems w/ Anesthesia Additional Past Anesthesia/Blood Transfusion Reaction / Comment(s): HAD SEVERE BLOOD PRESSURE PROBLEMS AFTER GALLBLADDER SX Smoking Status: Current some day smoker - Past Family History Father Family Medical History: Unable to Obtain Mother Family Medical History: Unable to Obtain Medications and Allergies Home Medications Medication Instructions Recorded Confirmed Type Digoxin [Lanoxin] 125 mcg PO DAILY 12/29/14 04/25/17 History Simvastatin [Zocor] 20 mg PO HS 12/29/14 04/25/17 History Metoprolol Tartrate [Lopressor] 50 mg PO BID tab 01/09/15 04/25/17 Rx Tamsulosin [Flomax] 0.4 mg PO BID cap.er.24h 01/09/15 04/25/17 Rx ALPRAZolam [Xanax] 0.25 mg PO BID 04/25/17 04/25/17 History Furosemide [Lasix] 20 mg PO BID 04/25/17 04/25/17 History Hydrocodone/Acetaminophen [[place] 1 tab PO Q4H 04/25/17 04/25/17 History 10-325] Lisinopril [Prinivil] 10 mg PO DAILY 04/25/17 04/25/17 History Allergies Allergy/AdvReac Type Severity Reaction Status Date / Time Sulfa (Sulfonamide Allergy Anaphylaxis Verified 04/25/17 14:25 Antibiotics) Anesthetics - Noemi Type- AdvReac Anaphylaxis Verified 04/25/17 14:25 Parabens [Anesthetics - Noemi Type] celecoxib [From Celebrex] AdvReac Unknown Verified 04/25/17 14:25 Physical Exam Vitals: Vital Signs Temp Pulse Pulse Resp BP Pulse Ox 04/26/17 11:00 97 23 113/68 97 04/26/17 10:00 95 20 135/95 100 04/26/17 09:00 83 28 H 135/95 100 04/26/17 08:00 110 H 21 122/80 100 04/26/17 07:45 108 H 13 122/80 92 L 04/26/17 07:30 83 19 122/80 99 04/26/17 07:15 99 25 H 122/80 100 04/26/17 07:00 106 H 24 104/68 99 04/26/17 06:45 99 23 104/68 100 04/26/17 06:30 110 H 15 104/68 98 04/26/17 06:15 96 28 H 104/68 100 04/26/17 06:00 91 24 104/68 99 04/26/17 05:45 82 10 L 104/68 100 04/26/17 05:30 101 H 23 99/79 04/26/17 05:15 105 H 23 147/88 98 04/26/17 05:00 96 32 H 121/88 94 L 04/26/17 04:45 111 H 33 H 134/88 100 04/26/17 04:30 106 H 11 L 128/87 100 04/26/17 04:15 102 H 12 122/89 96 04/26/17 04:00 93 23 99 04/26/17 03:45 79 18 141/82 99 04/26/17 03:30 89 26 H 142/85 100 04/26/17 03:15 87 19 128/79 100 04/26/17 03:00 91 23 117/87 100 04/26/17 02:45 74 17 127/87 100 04/26/17 02:30 79 24 121/82 99 04/26/17 02:15 82 17 119/80 92 L 04/26/17 02:00 82 22 124/92 100 04/26/17 01:45 74 19 135/86 97 04/26/17 01:30 74 20 119/75 100 04/26/17 01:15 82 20 114/77 99 04/26/17 01:00 82 20 112/78 99 04/26/17 00:45 77 12 113/75 99 04/26/17 00:30 84 26 H 115/75 100 04/26/17 00:15 98.3 F 71 13 114/78 100 04/26/17 00:00 81 27 H 122/77 85 L 04/25/17 23:45 76 25 H 105/82 93 L 04/25/17 23:30 72 22 105/74 100 04/25/17 23:15 80 7 L 104/79 100 04/25/17 23:09 77 23 135/100 95 04/25/17 23:00 103 H 14 135/100 100 04/25/17 22:45 91 23 122/84 97 04/25/17 22:30 79 20 120/88 04/25/17 22:15 86 11 L 118/82 100 04/25/17 22:00 99 14 131/84 04/25/17 21:45 118 H 8 L 135/87 98 04/25/17 21:30 93 10 L 137/95 04/25/17 21:15 103 H 19 140/94 100 04/25/17 21:00 101 H 16 126/84 100 04/25/17 20:45 113 H 23 113/79 100 04/25/17 20:30 125 H 8 L 106/76 93 L 04/25/17 20:15 98.5 F 111 H 7 L 109/73 100 04/25/17 20:00 112 H 109 H 17 106/71 98 04/25/17 19:45 120 H 25 H 114/95 99 04/25/17 19:30 102 H 16 117/78 100 04/25/17 19:15 122 H 19 110/82 99 04/25/17 19:00 114 H 22 91/75 98 04/25/17 18:30 125 H 16 108/91 95 04/25/17 18:15 115 H 13 109/82 95 04/25/17 18:00 121 H 23 114/84 98 04/25/17 17:45 112 H 38 H 115/77 98 04/25/17 17:30 98.2 F 120 H 144 H 16 85/71 98 04/25/17 16:47 119 H 20 104/73 99 04/25/17 16:35 107 H 24 79/65 100 04/25/17 16:32 132 H 24 76/52 100 04/25/17 16:01 98.7 F 122 H 24 83/70 100 04/25/17 15:24 144 H 04/25/17 15:20 140 H 20 99/73 91 L 04/25/17 14:44 140 H 20 113/86 93 L 04/25/17 14:18 101.4 F H 140 H 20 94/78 93 L Intake and Output 04/25/17 04/26/17 04/26/17 22:59 06:59 14:59 Intake Total 624.715 005 1852.5 Output Total 435 310 185 Balance 189.625 516 837.5 Intake: IV 520 800 500 Sodium Chloride 0.9% 1, 520 800 500 000 ml @ 100 mls/hr IV . Q10H [facility] Rx#:[id number] Intake, IV Titration 104.625 26 222.5 Amount Magnesium Sulfate-D5w Pmx 210 1 gm In Dextrose/Water 1 100ml.bag @ 100 mls/hr IVPB Q1H [facility] Rx#: [id number] Norepinephrin 4 mg-0.9% 104.625 26 Ns Pmx 4 mg In 250 ml @ Titrate IV .Q0M [facility] Rx#: [id number] Piperacillin-Tazobactam 3 12.5 .375 gm In Dextrose/Water 1 50ml.bag @ 12.5 mls/hr IVPB Q8HR [facility] Rx#: [id number] Oral 300 Output: Urine 435 310 185 Uretheral (Franco) 200 Other: Voiding Method Indwelling Catheter Indwelling Catheter Indwelling Catheter Weight 87.5 kg 88.6 kg - Constitutional General appearance: no acute distress - Respiratory Respiratory: bilateral: CTA - Cardiovascular Rhythm: irregularly irregular Abnormal Heart Sounds: systolic murmur Results 04/26/17 03:51 04/26/17 03:51 Cardiac Enzymes 04/25/17 04/25/17 Range/Units 14:40 14:40 AST 59 (17-59) U/L CK-MB (CK-2) 8.7 H* (0.0-2.4) ng/mL Troponin I 0.232 H* (0.000-0.034) ng/mL Coagulation 04/25/17 Range/Units 14:40 PT 12.8 H (9.0-12.0) sec APTT 27.4 (22.0-30.0) sec CBC 04/25/17 04/26/17 Range/Units 14:40 03:51 WBC 19.6 H 13.9 H (3.8-10.6) k/uL RBC 4.68 4.42 (4.30-5.90) m/uL Hgb 13.1 12.1 L (13.0-17.5) gm/dL Hct 40.9 38.3 L (39.0-53.0) % Plt Count 128 L 83 L (150-450) k/uL Comprehensive Metabolic Panel 04/25/17 04/26/17 Range/Units 14:40 03:51 Sodium 126 L 131 L (137-145) mmol/L Potassium 5.2 H 4.7 (3.5-5.1) mmol/L Chloride 97 L 104 (98-107) mmol/L Carbon Dioxide 19 L 21 L (22-30) mmol/L BUN 44 H 40 H (9-20) mg/dL Creatinine 1.40 H 1.20 (0.66-1.25) mg/dL Glucose 349 H 110 H (74-99) mg/dL Calcium 8.5 8.1 L (8.4-10.2) mg/dL AST 59 (17-59) U/L ALT 65 (21-72) U/L Alkaline Phosphatase 80 (38-126) U/L Total Protein 4.9 L (6.3-8.2) g/dL Albumin 3.0 L (3.5-5.0) g/dL Current Medications Generic Name Dose Route Start Last Admin Trade Name Freq PRN Reason Stop Dose Admin Acetaminophen 650 mg 04/25/17 15:58 Tylenol Tab PO Q4HR PRN Fever and/or Mild Pain Heparin Sodium (Porcine) 5,000 unit 04/25/17 17:45 04/26/17 08:44 Heparin SQ 5,000 unit Q8HR [facility] Administration Hydromorphone HCl 1 mg 04/26/17 08:59 04/26/17 10:52 Dilaudid IVP 1 mg Q2HR PRN Administration Pain Piperacillin/Tazobactam/ 50 mls @ 12.5 mls/hr 04/26/17 00:00 04/26/17 08:29 Dextrose 3.375 gm/ IV Solution IVPB 12.5 mls/hr Q8HR [facility] Administration Vancomycin HCl 1,500 mg/ 250 mls @ 125 mls/hr 04/26/17 06:00 04/26/17 08:29 Sodium Chloride IVPB 125 mls/hr Q16H [facility] Administration Norepinephrine Bitartrate 4 mg in 250 mls @ 0 mls/hr 04/25/17 16:30 04/25/17 23:09 Levophed-0.9% Nacl 4 Mg/250ml Pmx IV 0 mcg/min .Q0M [facility] 0 mls/hr Protocol Titration Titrate Diltiazem HCl 125 mg/ Sodium 125 mls @ 5 mls/hr 04/25/17 17:45 04/25/17 18:48 Chloride IV 5 mg/hr .Q24H [facility] 5 mls/hr 5 MG/HR Administration Sodium Chloride 1,000 mls @ 100 mls/hr 04/25/17 17:45 04/26/17 08:25 Saline 0.9% IV 100 mls/hr .Q10H [facility] Administration Insulin Human Lispro 0 unit 04/25/17 21:00 04/26/17 08:46 Humalog SQ Not Given ACHS [facility] Protocol Metoprolol Tartrate 25 mg 04/26/17 21:00 Lopressor PO BID [facility] Miscellaneous Information 1 each 04/26/17 05:32 Magnesium Per Protocol MISCELLANE DAILY PRN Per Protocol Protocol Naloxone HCl 0.2 mg 04/25/17 15:58 Narcan IV Q2M PRN Opioid Reversal Pantoprazole Sodium 40 mg 04/26/17 09:00 04/26/17 09:16 Protonix IV 40 mg DAILY [facility] Administration Intake and Output 04/25/17 04/26/17 04/26/17 22:59 06:59 14:59 Intake Total 624.896 749 1023.5 Output Total 435 310 185 Balance 189.625 516 837.5 Intake: IV 520 800 500 Sodium Chloride 0.9% 1, 520 800 500 000 ml @ 100 mls/hr IV . Q10H [facility] Rx#:[id number] Intake, IV Titration 104.625 26 222.5 Amount Magnesium Sulfate-D5w Pmx 210 1 gm In Dextrose/Water 1 100ml.bag @ 100 mls/hr IVPB Q1H [facility] Rx#: [id number] Norepinephrin 4 mg-0.9% 104.625 26 Ns Pmx 4 mg In 250 ml @ Titrate IV .Q0M [facility] Rx#: [id number] Piperacillin-Tazobactam 3 12.5 .375 gm In Dextrose/Water 1 50ml.bag @ 12.5 mls/hr IVPB Q8HR [facility] Rx#: [id number] Oral 300 Output: Urine 435 310 185 Uretheral (Franco) 200 Other: Voiding Method Indwelling Catheter Indwelling Catheter Indwelling Catheter Weight 87.5 kg 88.6 kg 04/26/17 03:51 04/26/17 03:51 Assessment and Plan Assessment: This is a 72-year-old gentleman with a past medical history significant for possible CAD, valvular heart disease and status post mitral valve replacement, hypertension, and dyslipidemia and chronic A. fib was admitted to the hospital with right lower extremity cellulitis which seems to be severe was possible osteomyelitis. When the patient arrived he was septic and he was hypotensive requiring vasopressors but currently he has been stable. Also he was in A. fib with RVR but the heart rate has been better on 5 mg of Cardizem IV. He is not on any anticoagulation at this point. I am going to start the patient on metoprolol by mouth. The right to wean him from the Cardizem. Start the patient on heparin for anticoagulation. Obtain echocardiogram was Doppler. And follow-up with the patient. Thank you for allowing us participate in his care
[2017-04-26 12:17] LABS: Glucose,Whole Blood 185 mg/dL (75-99)
--- NOTE | 2017-04-26 12:26 | PN ---
PROGRESS NOTE DATE OF SERVICE: 04/26/2017 REASON FOR CONSULTATION: Sepsis with right lower extremity cellulitis. INTERVAL HISTORY: The patient is afebrile. He is complaining of significant pain in the right foot and leg area. He did mention some improvement last night; however, he has some pain this morning. Denies any chest pain, shortness of breath or cough. No abdominal pain or any diarrhea. PHYSICAL EXAMINATION: Blood pressure 130/68 with a pulse of 97, temperature 98. He is 97% on room air. General description is an elderly male, lying in bed in no distress. RESPIRATORY SYSTEM: Unlabored breathing, clear to auscultation anteriorly. HEART: S1, S2. Regular rate and rhythm. ABDOMEN: Soft, no tenderness. Right leg swelling has slightly improved. LABS: BUN of 40 with a creatinine of 1.2. The hemoglobin is 12.1, white count of 13.9. DIAGNOSTIC IMPRESSION AND PLAN: Patient admitted to the hospital with sepsis with acute right lower extremity cellulitis with diffuse swelling and redness, most likely streptococcal disease. Will keep the patient on Zosyn and vanco at this point while waiting for the culture to finalize. RN has been advised to keep the leg elevated and joel the area of redness. Continue supportive care. MMODL / IJN: [id number] /
--- NOTE | 2017-04-26 12:34 | P.HPIM ---
History of Present Illness H&P Date: 04/26/17 Chief Complaint: Right leg pain 72-year-old male who presented to the emergency room on 04/25/2017 with a chief complaint of right leg pain. Apparently, the patient was experiencing severe right leg pains the night before he presented to the hospital and he decided to lay down on the floor and he laid there the entire day until he was brought by EMS to the hospital. The patient has a history of chronic wounds to his right leg. At his last visit to his PCP, it was noted that there were no open lesions. The patient also has a history of atrial fibrillation, GERD, hyperlipidemia, hypertension, CABG with mitral valve replacement, dementia, and benign prostatic hyperplasia. The patient was hospitalized in 2014 for bilateral pneumonia that required mechanical ventilation secondary to Haemophilus influenza. According to Dr. 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 In the emergency room, multiple xrays were completed. A right femur x-ray shows mild right hip osteonecrosis. X-ray of the tibia and fibula show small nonspecific knee joint effusion, no acute osseous abnormality, and soft tissue swelling greater towards the ankle. A foot x-ray was completed which shows marked dorsal soft tissue swelling but did not reveal acute osseous abnormalities. The patient was found to be in atrial fibrillation with rapid ventricular rate in the 150s. He was started on a Cardizem drip. He was also hypotensive with a systolic blood pressure in the 70s to 80s. He required multiple fluid boluses and was also started on vasopressors. His temperature was noted to be 101.4. White count on admission was 19.6. Hemoglobin 13.1. His sodium was low at 126. Potassium was slightly elevated at 5.2. BUN/ creatinine were also elevated. BUN was 44 and creatinine 1.4. Lactic acid was significantly elevated at 4.7. Troponin was 0.232. He was started on Zosyn and vancomycin. He was admitted to the intensive care unit under the care of Dr. Mireles. Consults were placed to sewer cleaner, Dr. García. Consults were also placed to infectious disease, cardiology, and orthopedics. The patient was seen and examined at the bedside with Dr. Mireles. The patient is very hard of hearing and states he is not wearing his hearing aides. His blood pressure is stable at this time with a systolic blood pressure ranging from 120 to 130. Per nursing, he has been off vasopressors since approximately 11 PM last night. He remains on a Cardizem drip at 5 mg an hour. His heart rate has improved and is ranging from 90-110. He remains on Zosyn and vancomycin. He is being followed by infectious disease. He is afebrile at this time. Urine cultures and blood cultures are currently pending. Wound culture from the right leg is also currently pending. He does continue to complain of pain in the right leg and foot. He denies any shortness of breath. He is maintaining an oxygen saturation greater than 92%. He denies chest pain or pressure. Review of Systems GENERAL: Patient denies fever. Denies chills. EYES: Denies blurred vision. Denies vision changes. Denies eye pain. EARS, NOSE, MOUTH, & THROAT: Positive for hearing difficulty, patient uses hearing aids. Denies headache. Denies sore throat. Denies ear pain. RESPIRATORY: Denies cough. Denies shortness of breath. Denies sputum production. Denies hemoptysis. CARDIOVASCULAR: Denies chest pain or pressure. Denies palpitations. Denies arrhythmias. GASTROINTESTINAL: Denies abdominal pain. Denies diarrhea. Denies constipation. Denies nausea. Denies vomiting. Denies heartburn. Denies blood in the stool. GENITOURINARY: Denies urinary frequency. Denies burning. Denies dysuria. Denies cloudy urine. Denies blood in the urine. MUSCULOSKELETAL: Positive for right leg and foot pain. Positive for limited range of motion of right lower extremity. INTEGUMENTARY: Positive for chronic wounds to right lower leg. Denies rash. PSYCHIATRIC: Denies suicidal or homicial ideations. ENDOCRINE: Denies weight change. Denies polydipsia. Denies polyuria. HEMATOLOGIC: Denies bleeding disorders. Past Medical History Past Medical History: GERD/Reflux, Hyperlipidemia, Hypertension, Memory Impairment, Osteoarthritis (OA), Prostate Disorder Additional Past Medical History / Comment(s): Coronary artery disease with previous bypass surgery and a mitral valve replacement surgery with tissue valve approximately 25 years ago, severe degenerative arthritis, dementia, BPH, hypertension, history of bilateral pneumonia requiring intubation and mechanical ventilation secondary to Haemophilus influenza in 2015. History of Any Multi-Drug Resistant Organisms: None Reported Past Surgical History: Cardiac Valve Replacement, Cholecystectomy, Heart Catheterization, Orthopedic Surgery Additional Past Surgical History / Comment(s): PIG VALVE, CATARACT-LENS IMPLANTS Past Anesthesia/Blood Transfusion Reactions: Previous Problems w/ Anesthesia Additional Past Anesthesia/Blood Transfusion Reaction / Comment(s): HAD SEVERE BLOOD PRESSURE PROBLEMS AFTER GALLBLADDER SX Smoking Status: Current some day smoker - Past Family History Father Family Medical History: Unable to Obtain Mother Family Medical History: Unable to Obtain Medications and Allergies Home Medications Medication Instructions Recorded Confirmed Type Digoxin [Lanoxin] 125 mcg PO DAILY 12/29/14 04/25/17 History Simvastatin [Zocor] 20 mg PO HS 12/29/14 04/25/17 History Metoprolol Tartrate [Lopressor] 50 mg PO BID tab 01/09/15 04/25/17 Rx Tamsulosin [Flomax] 0.4 mg PO BID cap.er.24h 01/09/15 04/25/17 Rx ALPRAZolam [Xanax] 0.25 mg PO BID 04/25/17 04/25/17 History Furosemide [Lasix] 20 mg PO BID 04/25/17 04/25/17 History Hydrocodone/Acetaminophen [[place] 1 tab PO Q4H 04/25/17 04/25/17 History 10-325] Lisinopril [Prinivil] 10 mg PO DAILY 04/25/17 04/25/17 History Allergies Allergy/AdvReac Type Severity Reaction Status Date / Time Sulfa (Sulfonamide Allergy Anaphylaxis Verified 04/25/17 14:25 Antibiotics) Anesthetics - Noemi Type- AdvReac Anaphylaxis Verified 04/25/17 14:25 Parabens [Anesthetics - Noemi Type] celecoxib [From Celebrex] AdvReac Unknown Verified 04/25/17 14:25 Physical Exam Vitals: Vital Signs Temp Pulse Pulse Resp BP Pulse Ox 04/26/17 11:00 97 23 113/68 97 04/26/17 10:00 95 20 135/95 100 04/26/17 09:00 83 28 H 135/95 100 04/26/17 08:00 110 H 21 122/80 100 04/26/17 07:45 108 H 13 122/80 92 L 04/26/17 07:30 83 19 122/80 99 04/26/17 07:15 99 25 H 122/80 100 04/26/17 07:00 106 H 24 104/68 99 04/26/17 06:45 99 23 104/68 100 04/26/17 06:30 110 H 15 104/68 98 04/26/17 06:15 96 28 H 104/68 100 04/26/17 06:00 91 24 104/68 99 04/26/17 05:45 82 10 L 104/68 100 04/26/17 05:30 101 H 23 99/79 04/26/17 05:15 105 H 23 147/88 98 04/26/17 05:00 96 32 H 121/88 94 L 04/26/17 04:45 111 H 33 H 134/88 100 04/26/17 04:30 106 H 11 L 128/87 100 04/26/17 04:15 102 H 12 122/89 96 04/26/17 04:00 93 23 99 04/26/17 03:45 79 18 141/82 99 04/26/17 03:30 89 26 H 142/85 100 04/26/17 03:15 87 19 128/79 100 04/26/17 03:00 91 23 117/87 100 04/26/17 02:45 74 17 127/87 100 04/26/17 02:30 79 24 121/82 99 04/26/17 02:15 82 17 119/80 92 L 04/26/17 02:00 82 22 124/92 100 04/26/17 01:45 74 19 135/86 97 04/26/17 01:30 74 20 119/75 100 04/26/17 01:15 82 20 114/77 99 04/26/17 01:00 82 20 112/78 99 04/26/17 00:45 77 12 113/75 99 04/26/17 00:30 84 26 H 115/75 100 04/26/17 00:15 98.3 F 71 13 114/78 100 04/26/17 00:00 81 27 H 122/77 85 L 04/25/17 23:45 76 25 H 105/82 93 L 04/25/17 23:30 72 22 105/74 100 04/25/17 23:15 80 7 L 104/79 100 04/25/17 23:09 77 23 135/100 95 04/25/17 23:00 103 H 14 135/100 100 04/25/17 22:45 91 23 122/84 97 04/25/17 22:30 79 20 120/88 04/25/17 22:15 86 11 L 118/82 100 04/25/17 22:00 99 14 131/84 04/25/17 21:45 118 H 8 L 135/87 98 04/25/17 21:30 93 10 L 137/95 04/25/17 21:15 103 H 19 140/94 100 04/25/17 21:00 101 H 16 126/84 100 04/25/17 20:45 113 H 23 113/79 100 04/25/17 20:30 125 H 8 L 106/76 93 L 04/25/17 20:15 98.5 F 111 H 7 L 109/73 100 04/25/17 20:00 112 H 109 H 17 106/71 98 04/25/17 19:45 120 H 25 H 114/95 99 04/25/17 19:30 102 H 16 117/78 100 04/25/17 19:15 122 H 19 110/82 99 04/25/17 19:00 114 H 22 91/75 98 04/25/17 18:30 125 H 16 108/91 95 04/25/17 18:15 115 H 13 109/82 95 04/25/17 18:00 121 H 23 114/84 98 04/25/17 17:45 112 H 38 H 115/77 98 04/25/17 17:30 98.2 F 120 H 144 H 16 85/71 98 04/25/17 16:47 119 H 20 104/73 99 04/25/17 16:35 107 H 24 79/65 100 04/25/17 16:32 132 H 24 76/52 100 04/25/17 16:01 98.7 F 122 H 24 83/70 100 04/25/17 15:24 144 H 04/25/17 15:20 140 H 20 99/73 91 L 04/25/17 14:44 140 H 20 113/86 93 L 04/25/17 14:18 101.4 F H 140 H 20 94/78 93 L Intake and Output 04/25/17 04/26/17 04/26/17 22:59 06:59 14:59 Intake Total 624.496 853 5851.5 Output Total 435 310 185 Balance 189.625 516 837.5 Intake: IV 520 800 500 Sodium Chloride 0.9% 1, 520 800 500 000 ml @ 100 mls/hr IV . Q10H [facility] Rx#:[id number] Intake, IV Titration 104.625 26 222.5 Amount Magnesium Sulfate-D5w Pmx 210 1 gm In Dextrose/Water 1 100ml.bag @ 100 mls/hr IVPB Q1H [facility] Rx#: [id number] Norepinephrin 4 mg-0.9% 104.625 26 Ns Pmx 4 mg In 250 ml @ Titrate IV .Q0M [facility] Rx#: [id number] Piperacillin-Tazobactam 3 12.5 .375 gm In Dextrose/Water 1 50ml.bag @ 12.5 mls/hr IVPB Q8HR [facility] Rx#: [id number] Oral 300 Output: Urine 435 310 185 Uretheral (Franco) 200 Other: Voiding Method Indwelling Catheter Indwelling Catheter Indwelling Catheter Weight 87.5 kg 88.6 kg GENERAL: This is a 72-year-old male in no apparent distress at the time of examination. Pleasant and cooperative. He is very hard of hearing and does not have his hearing aides with him. HEENT: Head is atraumatic, normocephalic. Pupils are equal, round, and reactive to light. Sclerae anicteric. Conjunctivae are clear. Mucus membranes of the mouth are moist. Neck is supple. RESPIRATORY: Clear to ausculation, diminished at the bases. No wheezes, rales, or rhonchi. No use of accessory muscles. Patient maintaining oxygen saturation greater than 92%. No chest wall tenderness is noted on palpation or with deep breathing. CARDIOVASCULAR: Slightly tachycardic with rate ranging 90-110. panel monitor shows atrial fibrillation. S1 and S2 noted. Systolic murmur auscultated. No JVD noted. No S3 or S4 noted. GASTROINTESTINAL: No distention noted. Abdomen soft and round. Normal active bowel sounds auscultated X 4 quadrants. No pain or tenderness noted upon palpation. INTEGUMENTARY: Right lower extremity swelling and erythema that extends to knee and thigh, two areas of dark purple discoloration present. Two dime-sized open lesions noted mid calf. No jaundice. No rashes noted. EXTREMITIES: Decreased pedal pulses. No calf tenderness noted. NEUROLOGIC: Cranial nerves II-XII intact. PSYCHIATRIC: Awake, alert, and oriented X 3. Appropriate affect. Intact judgement and insight. Results CBC & Chem 7: 04/26/17 03:51 04/26/17 03:51 Labs: Abnormal Lab Results - Last 24 Hours (Table) 04/25/17 04/25/17 04/25/17 Range/Units 14:40 14:40 14:40 WBC 19.6 H (3.8-10.6) k/uL Hgb (13.0-17.5) gm/dL Hct (39.0-53.0) % RDW 17.7 H (11.5-15.5) % Plt Count 128 L (150-450) k/uL Neutrophils # 18.6 H (1.3-7.7) k/uL Lymphocytes # 0.5 L (1.0-4.8) k/uL PT (9.0-12.0) sec INR (<1.2) Sodium 126 L (137-145) mmol/L Potassium 5.2 H (3.5-5.1) mmol/L Chloride 97 L (98-107) mmol/L Carbon Dioxide 19 L (22-30) mmol/L BUN 44 H (9-20) mg/dL Creatinine 1.40 H (0.66-1.25) mg/dL Glucose 349 H (74-99) mg/dL POC Glucose (mg/dL) (75-99) mg/dL Plasma Lactic Acid Javier (0.7-2.0) mmol/L Calcium (8.4-10.2) mg/dL Magnesium (1.6-2.3) mg/dL Total Creatine Kinase 323 H (55-170) U/L CK-MB (CK-2) 8.7 H* (0.0-2.4) ng/mL Troponin I 0.232 H* (0.000-0.034) ng/mL Total Protein 4.9 L (6.3-8.2) g/dL Albumin 3.0 L (3.5-5.0) g/dL Urine Protein (Negative) Urine Glucose (UA) (Negative) Urine Ketones (Negative) Hyaline Casts (0-2) /lpf Urine Mucus (None) /hpf 04/25/17 04/25/17 04/25/17 Range/Units 14:40 14:40 16:10 WBC (3.8-10.6) k/uL Hgb (13.0-17.5) gm/dL Hct (39.0-53.0) % RDW (11.5-15.5) % Plt Count (150-450) k/uL Neutrophils # (1.3-7.7) k/uL Lymphocytes # (1.0-4.8) k/uL PT 12.8 H (9.0-12.0) sec INR 1.3 H (<1.2) Sodium (137-145) mmol/L Potassium (3.5-5.1) mmol/L Chloride (98-107) mmol/L Carbon Dioxide (22-30) mmol/L BUN (9-20) mg/dL Creatinine (0.66-1.25) mg/dL Glucose (74-99) mg/dL POC Glucose (mg/dL) (75-99) mg/dL Plasma Lactic Acid Javier 4.7 H* (0.7-2.0) mmol/L Calcium (8.4-10.2) mg/dL Magnesium (1.6-2.3) mg/dL Total Creatine Kinase (55-170) U/L CK-MB (CK-2) (0.0-2.4) ng/mL Troponin I (0.000-0.034) ng/mL Total Protein (6.3-8.2) g/dL Albumin (3.5-5.0) g/dL Urine Protein 3+ H (Negative) Urine Glucose (UA) 4+ H (Negative) Urine Ketones 1+ H (Negative) Hyaline Casts 9 H (0-2) /lpf Urine Mucus Rare H (None) /hpf 04/25/17 04/25/17 04/25/17 Range/Units 17:25 19:05 21:20 WBC (3.8-10.6) k/uL Hgb (13.0-17.5) gm/dL Hct (39.0-53.0) % RDW (11.5-15.5) % Plt Count (150-450) k/uL Neutrophils # (1.3-7.7) k/uL Lymphocytes # (1.0-4.8) k/uL PT (9.0-12.0) sec INR (<1.2) Sodium (137-145) mmol/L Potassium (3.5-5.1) mmol/L Chloride (98-107) mmol/L Carbon Dioxide (22-30) mmol/L BUN (9-20) mg/dL Creatinine (0.66-1.25) mg/dL Glucose (74-99) mg/dL POC Glucose (mg/dL) 305 H 256 H (75-99) mg/dL Plasma Lactic Acid Javier 2.9 H* (0.7-2.0) mmol/L Calcium (8.4-10.2) mg/dL Magnesium (1.6-2.3) mg/dL Total Creatine Kinase (55-170) U/L CK-MB (CK-2) (0.0-2.4) ng/mL Troponin I (0.000-0.034) ng/mL Total Protein (6.3-8.2) g/dL Albumin (3.5-5.0) g/dL Urine Protein (Negative) Urine Glucose (UA) (Negative) Urine Ketones (Negative) Hyaline Casts (0-2) /lpf Urine Mucus (None) /hpf 04/26/17 04/26/17 04/26/17 Range/Units 03:51 03:51 08:46 WBC 13.9 H (3.8-10.6) k/uL Hgb 12.1 L (13.0-17.5) gm/dL Hct 38.3 L (39.0-53.0) % RDW 17.4 H (11.5-15.5) % Plt Count 83 L (150-450) k/uL Neutrophils # 12.8 H (1.3-7.7) k/uL Lymphocytes # 0.4 L (1.0-4.8) k/uL PT (9.0-12.0) sec INR (<1.2) Sodium 131 L (137-145) mmol/L Potassium (3.5-5.1) mmol/L Chloride (98-107) mmol/L Carbon Dioxide 21 L (22-30) mmol/L BUN 40 H (9-20) mg/dL Creatinine (0.66-1.25) mg/dL Glucose 110 H (74-99) mg/dL POC Glucose (mg/dL) 118 H (75-99) mg/dL Plasma Lactic Acid Javier (0.7-2.0) mmol/L Calcium 8.1 L (8.4-10.2) mg/dL Magnesium 1.4 L (1.6-2.3) mg/dL Total Creatine Kinase (55-170) U/L CK-MB (CK-2) (0.0-2.4) ng/mL Troponin I (0.000-0.034) ng/mL Total Protein (6.3-8.2) g/dL Albumin (3.5-5.0) g/dL Urine Protein (Negative) Urine Glucose (UA) (Negative) Urine Ketones (Negative) Hyaline Casts (0-2) /lpf Urine Mucus (None) /hpf Microbiology - Last 24 Hours (Table) 04/25/17 16:10 Urine Culture - Preliminary Urine,Catheterized 04/25/17 14:40 Gram Stain - Preliminary Leg - Right Wound Culture - Preliminary Assessment and Plan Plan: ASSESSMENT: Acute septic shock, present on admission, secondary to cellulitis of right lower extremity Cellulitis of right lower extremity and foot, present on admission Hypotension, secondary to sepsis, requiring vasopressors and fluid resuscitation , resolved Chronic atrial fibrillation, maintained on Lopressor and Digoxin outpatient, not on long-term anticoagulation Atrial fibrillation with rapid ventricular rate, rate improving with Cardizem drip History of coronary artery disease with previous CABG and mitral valve replacement Previous history of MRSA 2 History of bilateral pneumonia secondary to Haemophilus influenza requiring mechanical ventilation in 2014 Gastroesophageal reflux disease Hyperlipidemia Essential hypertension Osteoarthritis Dementia PLAN: -ICU management per sewer cleaner -Cardiology on consult. Appreciate recommendations and input -Continue Cardizem drip -Await results of echocardiogram -Infectious disease on consult. Appreciate recommendations and input -Continue Zosyn and vancomycin -Await results of urine, blood, and wound culture -Orthopedics on consult. No surgical intervention at this time -Home meds as appropriate -Monitor labs -Replace magnesium per protocol -GI prophylaxis: Protonix 40 mg IV daily -DVT prophylaxis: Heparin 5000 units subcu every 8 hours -Monitor vital signs and address as appropriate -Discharge planning: Patient to return home, pending patient's condition and hospital course -Further recommendations pending patient's clinical course -If patient remains stable, anticipate transfer out of intensive care unit Nurse practitioner note has been reviewed by physician. Signing provider agrees with the documented findings, assessment, and plan of care.
[2017-04-26] MEDS ORDERED: HEPARIN SODIUM 1,000 UN/ML (10ML VL) MISCELLANE ONE (13:51)
[2017-04-26] MEDS ORDERED: HEPARIN SODIUM,PORCINE 5,000 UNIT/ML 1 ML VIAL IV ONE (14:59)
[2017-04-26] MEDS ORDERED: HEPARIN SODIUM,PORCINE 5,000 UNIT/ML 1 ML VIAL IV PRN (14:59)
[2017-04-26] MEDS ORDERED: HEPARIN SODIUM,PORCINE/D5W PMX 25,000 UNIT in DEXTROSE/WATER 1 500ML.BAG IV SCH (15:00)
[2017-04-26 16:00] LABS: Basophils % (A) 0 %; CH 28.1; CHCM 31.8; Eosinophils % (A) 0 %; HCT 39.6 % (39.0-53.0); HDW 2.93; HGB 12.1 gm/dL (13.0-17.5); Hypochromasia Slight; Luc # (Auto) 0.13; Luc % (Auto) 1; Lymphocytes # (A) 0.4 k/uL (1.0-4.8); Lymphocytes % (A) 3 %; MCHC 30.5 g/dL (31.0-37.0); MCV 88.6 fL (80.0-100.0); Mean Platelet Volume 7.7; Monocytes # (A) 0.4 k/uL (0-1.0); Monocytes % (A) 3 %; Neutrophils # (A) 13.7 k/uL (1.3-7.7); Neutrophils % (A) 93 %; RBC 4.47 m/uL (4.30-5.90); RDW 15.9 % (11.5-15.5); WBC 14.7 k/uL (3.8-10.6); WBC (Perox) 16.03
[2017-04-26 16:03] LABS: INR 1.4 (<1.2); Partial Thromboplastin Time 39.6 sec (22.0-30.0); Prothrombin Time 13.6 sec (9.0-12.0)
[2017-04-26 17:48] LABS: Glucose,Whole Blood 201 mg/dL (75-99)
[2017-04-26] MEDS: INSULIN ASPART 100 UNIT/ML 1 ML 10 ML VIAL SQ SCH ×2 (17:50→21:04)
[2017-04-26] MEDS: DILTIAZEM 125 MG in SODIUM CHLORIDE 0.9% 100 ML IV SCH (19:32)
[2017-04-26 20:38] LABS: Glucose,Whole Blood 163 mg/dL (75-99)
[2017-04-26] MEDS: METOPROLOL TARTRATE 25 MG TAB PO SCH (21:04)
[2017-04-27] MEDS: PIPERACILLIN-TAZOBACTAM 3.375 GM in DEXTROSE/WATER 1 50ML.BAG IVPB SCH ×3 (00:07→16:04)
[2017-04-27] MEDS: HYDROmorphone 1 MG/ML 1 ML SYRINGE IVP PRN ×7 (04:21→21:24)
[2017-04-27 05:00] LABS: Anisocytosis Slight; Basophils % (A) 0 %; CH 27.5; CHCM 31.5; Eosinophils % (A) 0 %; HDW 2.73; HGB 11.8 gm/dL (13.0-17.5); Luc # (Auto) 0.15; Luc % (Auto) 1; Lymphocytes # (A) 0.3 k/uL (1.0-4.8); Lymphocytes % (A) 2 %; MCH 27.3 pg (25.0-35.0); MCHC 31.1 g/dL (31.0-37.0); MCV 87.5 fL (80.0-100.0); Mean Platelet Volume 8.7; Monocytes # (A) 0.4 k/uL (0-1.0); Monocytes % (A) 3 %; Neutrophils # (A) 13.2 k/uL (1.3-7.7); Neutrophils % (A) 94 %; RBC 4.34 m/uL (4.30-5.90); RDW 17.4 % (11.5-15.5); WBC (Perox) 14.43
[2017-04-27 05:11] LABS: Anion Gap 5 mmol/L; Blood Urea Nitrogen 32 mg/dL (9-20); Calcium 7.9 mg/dL (8.4-10.2); Carbon Dioxide 20 mmol/L (22-30); Chloride 104 mmol/L (98-107); Glucose 163 mg/dL (74-99); Magnesium 1.9 mg/dL (1.6-2.3); Non-African American GFR(MDRD) >60 (>60 ml/min/1.73 sqM); Phosphorus 3.1 mg/dL (2.5-4.5); Potassium 4.7 mmol/L (3.5-5.1); Sodium 129 mmol/L (137-145)
--- NOTE | 2017-04-27 07:09 | XR ---
EXAMINATION TYPE: XR chest 1V DATE OF EXAM: 04/27/2017 CLINICAL HISTORY: Difficulty breathing progress study. TECHNIQUE: Single AP portable upright view of the chest is obtained. COMPARISON: Chest x-ray from one day earlier and older studies. FINDINGS: Overlying sternal wires are redemonstrated. There is persistent cardiomegaly with ectatic thoracic aorta. There is improving central perihilar peribronchial cuffing. There is no new focal air space opacity, pleural effusion, or pneumothorax seen bilaterally. Osseous structures are intact. IMPRESSION: Improving bilateral central interstitial edema and/or infiltrates. No new infiltrates are evident.
[2017-04-27 07:48] LABS: Glucose,Whole Blood 173 mg/dL (75-99)
[2017-04-27] MEDS: METOPROLOL TARTRATE 25 MG TAB PO SCH (08:34)
[2017-04-27] MEDS: PANTOPRAZOLE 40 MG/10 ML VIAL IV SCH (08:34)
[2017-04-27] MEDS: SODIUM CHLORIDE 0.9% 1,000 ML IV SCH ×2 (08:34→21:24)
[2017-04-27] MEDS: INSULIN ASPART 100 UNIT/ML 1 ML 10 ML VIAL SQ SCH ×4 (08:36→21:23)
--- NOTE | 2017-04-27 09:44 | ECHOF ---
Referral Reason:A.FIB/Heart Murmur MEASUREMENTS -------- HEIGHT: 182.9 cm WEIGHT: 88.5 kg BP: 113/68 RVIDd: 3.6 cm (< 3.3) IVSd: 1.3 cm (0.6 - 1.1) LVIDd: 3.3 cm (3.9 - 5.3) LVPWd: 1.2 cm (0.6 - 1.1) IVSs: 1.4 cm LVIDs: 2.8 cm LVPWs: 1.7 cm LA Diam: 4.8 cm (2.7 - 3.8) LAESV Index (A-L): 32.43 ml/m Ao Diam: 3.7 cm (2.0 - 3.7) AV Cusp: 1.9 cm (1.5 - 2.6) AV maxP.84 mmHg AV meanP.45 mmHg AR PHT: 350 ms RAP: 15.00 mmHg RVSP: 75.18 mmHg FINDINGS -------- Atrial fibrillation. This was a technically adequate study. The left ventricular size is normal. There is mild concentric left ventricular hypertrophy. Overa ll left ventricular systolic function is low-normal with, an EF between 50 - 55 %. There is paradox ical/dysynergic septal motion consistent with right ventricular volume overload and/or elevated right ventricular end-diastolic pressure. The right ventricle is mildly enlarged. The right ventricular systolic function is mildly impaired. LA is midly dilated 29-33ml/m2. RA appears enlarged. There is mild aortic valve sclerosis. There is mild aortic regurgitation. There is mild aortic st enosis present. Peak/mean gradient across the Aortic Valve is 17.84mmHg / 6.45mmHg. Mild mitral regurgitation is present. The peak and mean MV gradients are 45.37mmHg 24.52mmHg as me asured by doppler. Normally functioning bioprosthetic mitral valve. Severe tricuspid regurgitation present. There is severe pulmonary hypertension. The right ventric ular systolic pressure, as measured by Doppler, is 75.18mmHg. Trace/mild (physiologic) pulmonic regurgitation. The aortic root is dilated measuring 3.7cm. The inferior vena cava is dilated with no significant inspiratory collapse which is consistent estima syeda right atrial pressure of >15 mmHg. There is no pericardial effusion. CONCLUSIONS -------- 1. Atrial fibrillation. 2. This was a technically adequate study. 3. There is mild concentric left ventricular hypertrophy. 4. Overall left ventricular systolic function is low-normal with, an EF between 50 - 55 %. 5. There is paradoxical/dysynergic septal motion consistent with right ventricular volume overload an d/or elevated right ventricular end-diastolic pressure. 6. The right ventricle is mildly enlarged. 7. The right ventricular systolic function is mildly impaired. 8. LA is midly dilated 29-33ml/m2. 9. RA appears enlarged. 10. There is mild aortic valve sclerosis. 11. There is mild aortic regurgitation. 12. There is mild aortic stenosis present. 13. Peak/mean gradient across the Aortic Valve is 17.84mmHg / 6.45mmHg. 14. Mild mitral regurgitation is present. 15. The peak and mean MV gradients are 45.37mmHg 24.52mmHg as measured by doppler. 16. Normally functioning bioprosthetic mitral valve. 17. Severe tricuspid regurgitation present. 18. There is severe pulmonary hypertension. 19. Trace/mild (physiologic) pulmonic regurgitation. 20. The aortic root is dilated measuring 3.7cm. 21. The inferior vena cava is dilated with no significant inspiratory collapse which is consistent es timated right atrial pressure of >15 mmHg. 22. There is no pericardial effusion. WELDER HELPER: Brooklyn Barksdale RDCS
--- NOTE | 2017-04-27 11:59 | P.PN ---
Subjective Progress Note Date: 04/27/17 This is a 72-year-old male admitted for cellulitis of the right lower extremity. Patient states his pain is controlled with pain medication. Patient reports continued drainage from the wounds of the right lower extremity. Patient does not complain of any right hip pain today. Patient denies any new complaints today. Objective - Vital Signs Vital signs: Vital Signs Temp 98.0 F 04/27/17 08:00 Pulse 89 04/27/17 11:00 Resp 11 L 04/27/17 11:00 BP 139/89 04/27/17 11:00 Pulse Ox 80 L 04/27/17 11:00 Intake & Output 04/26/17 04/27/17 04/27/17 18:59 06:59 18:59 Intake Total 2274.487 5750.600 100 Output Total 490 505 80 Balance 7452.029 5630.600 20 Weight 88.6 kg 91.3 kg 91.3 kg Intake: IV 1200 1200 100 Sodium Chloride 0.9% 1, 1200 1200 100 000 ml @ 100 mls/hr IV . Q10H [facility] Rx#:[id number] Intake, IV Titration 336.917 410.600 Amount Diltiazem 125 mg In 114.417 49.267 Sodium Chloride 0.9% 100 ml @ 5 MG/HR 5 mls/hr IV .Q24H [facility] Rx#:[id number] Heparin Sodium,Porcine/ 61.333 D5w Pmx 25,000 unit In Dextrose/Water 1 500ml. bag @ 11.29 UNITS/KG/HR 20 mls/hr IV .Q24H [facility] Rx #:[id number] Magnesium Sulfate-D5w Pmx 210 1 gm In Dextrose/Water 1 100ml.bag @ 100 mls/hr IVPB Q1H [facility] Rx#: [id number] Piperacillin-Tazobactam 3 12.5 50 .375 gm In Dextrose/Water 1 50ml.bag @ 12.5 mls/hr IVPB Q8HR [facility] Rx#: [id number] Vancomycin 1,500 mg In 250 Sodium Chloride 0.9% 250 ml @ 125 mls/hr IVPB Q16H [facility] Rx#:[id number] Oral 300 Tube Feeding 300 Output: Urine 490 505 80 Other: Voiding Method Indwelling Catheter Indwelling Catheter Indwelling Catheter - Exam On exam patient is in no acute distress and appears comfortable. Patient is hard of hearing but alert and oriented. On exam of the right lower extremity there is erythema and swelling. The swelling appears somewhat improved from yesterday's exam. There is still tenderness to palpation of the right lower leg. There are several ulcerations of the right lower extremity that are weeping serosanguineous fluid. Dorsalis pedis pulses 2+. Neurovascular status and circulatory status are intact. - Labs CBC & Chem 7: 04/27/17 04:42 04/27/17 04:42 Labs: Abnormal Lab Results - Last 24 Hours (Table) 04/26/17 04/26/17 04/26/17 Range/Units 03:51 12:14 15:42 WBC 14.7 H (3.8-10.6) k/uL Hgb 12.1 L (13.0-17.5) gm/dL Hct (39.0-53.0) % MCHC 30.5 L (31.0-37.0) g/dL RDW 15.9 H (11.5-15.5) % Plt Count 80 L (150-450) k/uL Neutrophils # 13.7 H (1.3-7.7) k/uL Lymphocytes # 0.4 L (1.0-4.8) k/uL PT (9.0-12.0) sec INR (<1.2) APTT (22.0-30.0) sec Sodium (137-145) mmol/L Carbon Dioxide (22-30) mmol/L BUN (9-20) mg/dL Glucose (74-99) mg/dL POC Glucose (mg/dL) 185 H (75-99) mg/dL Hemoglobin A1c 9.5 H (4.0-6.0) % Calcium (8.4-10.2) mg/dL 04/26/17 04/26/17 04/26/17 Range/Units 15:42 17:45 20:36 WBC (3.8-10.6) k/uL Hgb (13.0-17.5) gm/dL Hct (39.0-53.0) % MCHC (31.0-37.0) g/dL RDW (11.5-15.5) % Plt Count (150-450) k/uL Neutrophils # (1.3-7.7) k/uL Lymphocytes # (1.0-4.8) k/uL PT 13.6 H (9.0-12.0) sec INR 1.4 H (<1.2) APTT 39.6 H (22.0-30.0) sec Sodium (137-145) mmol/L Carbon Dioxide (22-30) mmol/L BUN (9-20) mg/dL Glucose (74-99) mg/dL POC Glucose (mg/dL) 201 H 163 H (75-99) mg/dL Hemoglobin A1c (4.0-6.0) % Calcium (8.4-10.2) mg/dL 04/27/17 04/27/17 04/27/17 Range/Units 00:31 04:42 04:42 WBC 14.0 H (3.8-10.6) k/uL Hgb 11.8 L (13.0-17.5) gm/dL Hct 38.0 L (39.0-53.0) % MCHC (31.0-37.0) g/dL RDW 17.4 H (11.5-15.5) % Plt Count 80 L (150-450) k/uL Neutrophils # 13.2 H (1.3-7.7) k/uL Lymphocytes # 0.3 L (1.0-4.8) k/uL PT (9.0-12.0) sec INR (<1.2) APTT 56.6 H (22.0-30.0) sec Sodium 129 L (137-145) mmol/L Carbon Dioxide 20 L (22-30) mmol/L BUN 32 H (9-20) mg/dL Glucose 163 H (74-99) mg/dL POC Glucose (mg/dL) (75-99) mg/dL Hemoglobin A1c (4.0-6.0) % Calcium 7.9 L (8.4-10.2) mg/dL 04/27/17 Range/Units 07:46 WBC (3.8-10.6) k/uL Hgb (13.0-17.5) gm/dL Hct (39.0-53.0) % MCHC (31.0-37.0) g/dL RDW (11.5-15.5) % Plt Count (150-450) k/uL Neutrophils # (1.3-7.7) k/uL Lymphocytes # (1.0-4.8) k/uL PT (9.0-12.0) sec INR (<1.2) APTT (22.0-30.0) sec Sodium (137-145) mmol/L Carbon Dioxide (22-30) mmol/L BUN (9-20) mg/dL Glucose (74-99) mg/dL POC Glucose (mg/dL) 173 H (75-99) mg/dL Hemoglobin A1c (4.0-6.0) % Calcium (8.4-10.2) mg/dL Microbiology - Last 24 Hours (Table) 04/25/17 16:10 Urine Culture - Final Urine,Catheterized 04/25/17 17:44 Blood Culture - Preliminary Blood No Growth after 24 hours 04/25/17 14:40 Blood Culture - Preliminary Blood No Growth after 24 hours 04/25/17 14:40 Gram Stain - Preliminary Leg - Right Wound Culture - Preliminary Gram Neg Bacilli Assessment and Plan (1) Cellulitis of right leg Current Visit: Yes Status: Acute Code(s): L03.115 - CELLULITIS OF RIGHT LOWER LIMB SNOMED Code(s): 546798505 Plan: #1. X-rays of the right femur show [id number] osteonecrosis of the right hip. Patient reports chronic pain of the right hip that is no worse than usual. Do not believe this to be an infection of the right hip. #2. Continue IV antibiotics for right lower extremity cellulitis per infectious disease. #3. No surgical intervention planned at this time. Will continue to follow the patient closely.
--- NOTE | 2017-04-27 12:04 | P.PN ---
Subjective Progress Note Date: 04/27/17 Principal diagnosis: Atrial fibrillation This is a 72-year-old gentleman who does not follow with an extensive past medical history consistent of valvular heart disease and according to him status post mitral valve replacement, possible coronary artery disease, hypertension, dyslipidemia, and chronic atrial fibrillation currently not on any anticoagulation, presented to the emergency room complaining of right leg discomfort for as well as redness and swelling. The patient himself is a poor historian. He stated that he has been experiencing severe right leg discomfort as well as severe redness of the right leg. Beside that he was spiking fever when he presented to the emergency room. He was feeling very weak over the last several days and as a matter of fact he was unable to get off and stand up. He did not have any symptoms of chest pain or chest discomfort nor shortness of breath. When the patient presented to the emergency room he was diagnosed with severe right lower extremity cellulitis with possible osteomyelitis. An orthopedic surgeon is on the case at this point. Beside that he was very dry and receives 4 L of 0.9 normal saline. We get involved in the care of the patient because when he presented he was in A. fib with RVR which is likely secondary to his dehydration as well as to the temperature. The patient was started on Cardizem and drip. He was hypotensive when he presented and currently he is off the Levophed. On follow-up with the patient today, overall he is feeling better. He denies having any chest pain or discomfort or difficulty breathing. He continues to be in A. fib with relatively controlled heart rate and he continues to be in a small dose of Cardizem IV. Beside that he continues to be on heparin IV. He is on metoprolol by mouth. I am going to increase the dose of metoprolol by mouth and stop the Cardizem IV. Beside that I will stop the heparin IV and consider the patient for anticoagulation with Coumadin and the patient is not a candidate to have any of the new anticoagulation agents because he has valvular A. fib with history of mitral valve replacement. The echocardiogram revealed normal LV function with normally functioning bioprosthetic mitral valve. Objective - Vital Signs Vital signs: Vital Signs Temp 98.0 F 04/27/17 08:00 Pulse 89 04/27/17 11:00 Resp 11 L 04/27/17 11:00 BP 139/89 04/27/17 11:00 Pulse Ox 80 L 04/27/17 11:00 Intake & Output 04/26/17 04/27/17 04/27/17 18:59 06:59 18:59 Intake Total 5081.802 8643.600 100 Output Total 490 505 80 Balance 7147.040 1837.600 20 Weight 88.6 kg 91.3 kg 91.3 kg Intake: IV 1200 1200 100 Sodium Chloride 0.9% 1, 1200 1200 100 000 ml @ 100 mls/hr IV . Q10H [facility] Rx#:[id number] Intake, IV Titration 336.917 410.600 Amount Diltiazem 125 mg In 114.417 49.267 Sodium Chloride 0.9% 100 ml @ 5 MG/HR 5 mls/hr IV .Q24H [facility] Rx#:[id number] Heparin Sodium,Porcine/ 61.333 D5w Pmx 25,000 unit In Dextrose/Water 1 500ml. bag @ 11.29 UNITS/KG/HR 20 mls/hr IV .Q24H [facility] Rx #:[id number] Magnesium Sulfate-D5w Pmx 210 1 gm In Dextrose/Water 1 100ml.bag @ 100 mls/hr IVPB Q1H [facility] Rx#: [id number] Piperacillin-Tazobactam 3 12.5 50 .375 gm In Dextrose/Water 1 50ml.bag @ 12.5 mls/hr IVPB Q8HR [facility] Rx#: [id number] Vancomycin 1,500 mg In 250 Sodium Chloride 0.9% 250 ml @ 125 mls/hr IVPB Q16H [facility] Rx#:[id number] Oral 300 Tube Feeding 300 Output: Urine 490 505 80 Other: Voiding Method Indwelling Catheter Indwelling Catheter Indwelling Catheter - Constitutional General appearance: Present: no acute distress - Respiratory Respiratory: bilateral: CTA - Cardiovascular Rhythm: irregularly irregular Abnormal Heart Sounds: Present: systolic murmur - Labs CBC & Chem 7: 04/27/17 04:42 04/27/17 04:42 Labs: Abnormal Lab Results - Last 24 Hours (Table) 04/26/17 04/26/17 04/26/17 Range/Units 03:51 12:14 15:42 WBC 14.7 H (3.8-10.6) k/uL Hgb 12.1 L (13.0-17.5) gm/dL Hct (39.0-53.0) % MCHC 30.5 L (31.0-37.0) g/dL RDW 15.9 H (11.5-15.5) % Plt Count 80 L (150-450) k/uL Neutrophils # 13.7 H (1.3-7.7) k/uL Lymphocytes # 0.4 L (1.0-4.8) k/uL PT (9.0-12.0) sec INR (<1.2) APTT (22.0-30.0) sec Sodium (137-145) mmol/L Carbon Dioxide (22-30) mmol/L BUN (9-20) mg/dL Glucose (74-99) mg/dL POC Glucose (mg/dL) 185 H (75-99) mg/dL Hemoglobin A1c 9.5 H (4.0-6.0) % Calcium (8.4-10.2) mg/dL 04/26/17 04/26/17 04/26/17 Range/Units 15:42 17:45 20:36 WBC (3.8-10.6) k/uL Hgb (13.0-17.5) gm/dL Hct (39.0-53.0) % MCHC (31.0-37.0) g/dL RDW (11.5-15.5) % Plt Count (150-450) k/uL Neutrophils # (1.3-7.7) k/uL Lymphocytes # (1.0-4.8) k/uL PT 13.6 H (9.0-12.0) sec INR 1.4 H (<1.2) APTT 39.6 H (22.0-30.0) sec Sodium (137-145) mmol/L Carbon Dioxide (22-30) mmol/L BUN (9-20) mg/dL Glucose (74-99) mg/dL POC Glucose (mg/dL) 201 H 163 H (75-99) mg/dL Hemoglobin A1c (4.0-6.0) % Calcium (8.4-10.2) mg/dL 04/27/17 04/27/17 04/27/17 Range/Units 00:31 04:42 04:42 WBC 14.0 H (3.8-10.6) k/uL Hgb 11.8 L (13.0-17.5) gm/dL Hct 38.0 L (39.0-53.0) % MCHC (31.0-37.0) g/dL RDW 17.4 H (11.5-15.5) % Plt Count 80 L (150-450) k/uL Neutrophils # 13.2 H (1.3-7.7) k/uL Lymphocytes # 0.3 L (1.0-4.8) k/uL PT (9.0-12.0) sec INR (<1.2) APTT 56.6 H (22.0-30.0) sec Sodium 129 L (137-145) mmol/L Carbon Dioxide 20 L (22-30) mmol/L BUN 32 H (9-20) mg/dL Glucose 163 H (74-99) mg/dL POC Glucose (mg/dL) (75-99) mg/dL Hemoglobin A1c (4.0-6.0) % Calcium 7.9 L (8.4-10.2) mg/dL 04/27/17 Range/Units 07:46 WBC (3.8-10.6) k/uL Hgb (13.0-17.5) gm/dL Hct (39.0-53.0) % MCHC (31.0-37.0) g/dL RDW (11.5-15.5) % Plt Count (150-450) k/uL Neutrophils # (1.3-7.7) k/uL Lymphocytes # (1.0-4.8) k/uL PT (9.0-12.0) sec INR (<1.2) APTT (22.0-30.0) sec Sodium (137-145) mmol/L Carbon Dioxide (22-30) mmol/L BUN (9-20) mg/dL Glucose (74-99) mg/dL POC Glucose (mg/dL) 173 H (75-99) mg/dL Hemoglobin A1c (4.0-6.0) % Calcium (8.4-10.2) mg/dL Microbiology - Last 24 Hours (Table) 04/25/17 16:10 Urine Culture - Final Urine,Catheterized 04/25/17 17:44 Blood Culture - Preliminary Blood No Growth after 24 hours 04/25/17 14:40 Blood Culture - Preliminary Blood No Growth after 24 hours 04/25/17 14:40 Gram Stain - Preliminary Leg - Right Wound Culture - Preliminary Gram Neg Bacilli Assessment and Plan Assessment: This is a 72-year-old gentleman with a past medical history significant for possible CAD, valvular heart disease and status post mitral valve replacement, hypertension, and dyslipidemia and chronic A. fib was admitted to the hospital with right lower extremity cellulitis which seems to be severe was possible osteomyelitis. When the patient arrived he was septic and he was hypotensive requiring vasopressors but currently he has been stable. Also he was in A. fib with RVR but the heart rate has been better on 5 mg of Cardizem IV. He is not on any anticoagulation at this point. Will DC the Cardizem IV and increase the dose of metoprolol by mouth. DC the heparin IV and start the patient on oral anticoagulation was with him. The echocardiogram was reviewed. We'll follow-up with him.
[2017-04-27 12:08] LABS: Glucose,Whole Blood 180 mg/dL (75-99)
[2017-04-27] MEDS: VANCOMYCIN 1,500 MG in SODIUM CHLORIDE 0.9% 250 ML IVPB SCH (13:41)
--- NOTE | 2017-04-27 15:11 | P.PN ---
Subjective Progress Note Date: 04/27/17 Principal diagnosis: Acute septic shock and cellulitis of the right lower extremity. This is a 72-year-old white male with history of multiple medical problems including osteoarthritis, hypertension, coronary artery disease and previous CABG, chronic atrial fibrillation, previous mitral valve replacement, history of dementia, patient presented to the ER yesterday with a few weeks history of right leg pain, redness, and swelling. The patient himself is a very poor historian, and he is very hard of hearing. Patient denies any trauma to the right lower extremity. Pain has been getting more severe and throbbing without radiation involving mostly the right lower extremity below the knee extending to the foot and toes. Patient denied any fever , however he had a temp of 102 on presentation. Patient was also noted noted to be hypotensive in the ER, required 4 L of fluid boluses and required placement on norepinephrine for few hours. His norepinephrine was discontinued 6 hours prior to my evaluation. His blood pressures seems to be relatively stable at this point. Patient was also on Cardizem and he remains on Cardizem at 5 mg per hour for atrial fibrillation and RVR. X-rays and CT of the right leg failed to show necrotizing fasciitis, they all showed mostly swelling of the soft tissue, and no evidence of abscess to drain. Considering the presentation of severe cellulitis involving the right lower extremity, and considering the hypotension requiring fluid boluses and norepinephrine, patient was admitted to the ICU and this consult was initiated. Patient is now on vancomycin and Zosyn, blood cultures are pending. Presently, the patient denies any headache, no blurred vision, no dizziness, denies any chest pain, no shortness of breath, no nausea no vomiting no abdominal pain. Patient is very hard of hearing, complaining of mostly severe pain of the right leg and the right foot, normally takes [place] at home for his pain control. On 04/27/2017, patient remains on antibiotics for his right lower extremity cellulitis and septic shock. Off norepinephrine, urine output is reasonable, patient is hemodynamically stable, cultures from the wound in the right lower extremity is positive for gram-negative bacilli. Blood cultures are pending. So far negative. WBC count is 14.0 hemoglobin is 11.8 electrolytes showed slightly low sodium of 129. Renal profile is improved with BUN of 52 creatinine is 1.11. Patient is not in any form of respiratory distress. Objective - Vital Signs Vital signs: Vital Signs Temp 98.9 F 04/27/17 12:00 Pulse 76 04/27/17 13:00 Resp 31 H 04/27/17 13:00 BP 139/79 04/27/17 13:00 Pulse Ox 98 04/27/17 13:00 Intake & Output 04/26/17 04/27/17 04/27/17 18:59 06:59 18:59 Intake Total 6094.290 6685.600 1493.15 Output Total 490 505 290 Balance 2427.689 1907.600 1203.15 Weight 88.6 kg 91.3 kg 91.3 kg Intake: IV 1200 1200 700 Sodium Chloride 0.9% 1, 1200 1200 700 000 ml @ 100 mls/hr IV . Q10H [facility] Rx#:[id number] Intake, IV Titration 336.917 410.600 73.15 Amount Diltiazem 125 mg In 114.417 49.267 23.15 Sodium Chloride 0.9% 100 ml @ 5 MG/HR 5 mls/hr IV .Q24H [facility] Rx#:[id number] Heparin Sodium,Porcine/ 61.333 D5w Pmx 25,000 unit In Dextrose/Water 1 500ml. bag @ 11.29 UNITS/KG/HR 20 mls/hr IV .Q24H [facility] Rx #:[id number] Magnesium Sulfate-D5w Pmx 210 1 gm In Dextrose/Water 1 100ml.bag @ 100 mls/hr IVPB Q1H [facility] Rx#: [id number] Piperacillin-Tazobactam 3 12.5 50 50 .375 gm In Dextrose/Water 1 50ml.bag @ 12.5 mls/hr IVPB Q8HR [facility] Rx#: [id number] Vancomycin 1,500 mg In 250 Sodium Chloride 0.9% 250 ml @ 125 mls/hr IVPB Q16H [facility] Rx#:[id number] Oral 300 720 Tube Feeding 300 Output: Urine 490 505 290 Other: Voiding Method Indwelling Catheter Indwelling Catheter Indwelling Catheter - Exam General appearance: Revealed a 72-year-old white male, in no distress, patient is hard of hearing, complaining mostly of pain of the right foot and the right lower extremity. Head exam: Normocephalic, atraumatic. Looks slightly pale. Eye exam: PERRLA, EOMI, no icterus, pale and dry mucous membranes noted. ENT exam: Pale and dry mucous membranes, otherwise nasal mucosa and oral mucosa is normal. Throat is clear. Neck exam: Short neck, obese, supple, no masses, no JVD, no stridor. Respiratory exam: Clear, diminished at the bases, no rhonchi and no wheezes. No chest wall tenderness. Cardiovascular Exam: Regular rhythm, no S3 gallop, 2/6 systolic murmur throughout the precordium. GI/Abdominal exam: Soft nontender no megaly no rebound no guarding. Extremities exam: Diffuse swelling and erythema of the right foot and the right leg all the way up to the knee, and some erythematous changes noted in the right thigh area. Moderate to severe diffuse tenderness. There is erythema from the foot to the knee region with streaking towards the groin. There are some stage I/2 skin ulcers. There is some purplish discoloration of toes and fingers bilaterally. . Pulses diminished throughout.) Back exam: Unremarkable. Neurological exam: Hard of hearing, otherwise no focal neurologic deficit. Psychiatric exam: Normal mood and affect, normal mental status examination. Skin: Erythema as noted involving the right leg. - Labs CBC & Chem 7: 04/27/17 04:42 04/27/17 04:42 Labs: Abnormal Lab Results - Last 24 Hours (Table) 04/26/17 04/26/17 04/26/17 Range/Units 03:51 15:42 15:42 WBC 14.7 H (3.8-10.6) k/uL Hgb 12.1 L (13.0-17.5) gm/dL Hct (39.0-53.0) % MCHC 30.5 L (31.0-37.0) g/dL RDW 15.9 H (11.5-15.5) % Plt Count 80 L (150-450) k/uL Neutrophils # 13.7 H (1.3-7.7) k/uL Lymphocytes # 0.4 L (1.0-4.8) k/uL PT 13.6 H (9.0-12.0) sec INR 1.4 H (<1.2) APTT 39.6 H (22.0-30.0) sec Sodium (137-145) mmol/L Carbon Dioxide (22-30) mmol/L BUN (9-20) mg/dL Glucose (74-99) mg/dL POC Glucose (mg/dL) (75-99) mg/dL Hemoglobin A1c 9.5 H (4.0-6.0) % Calcium (8.4-10.2) mg/dL 04/26/17 04/26/17 04/27/17 Range/Units 17:45 20:36 00:31 WBC (3.8-10.6) k/uL Hgb (13.0-17.5) gm/dL Hct (39.0-53.0) % MCHC (31.0-37.0) g/dL RDW (11.5-15.5) % Plt Count (150-450) k/uL Neutrophils # (1.3-7.7) k/uL Lymphocytes # (1.0-4.8) k/uL PT (9.0-12.0) sec INR (<1.2) APTT 56.6 H (22.0-30.0) sec Sodium (137-145) mmol/L Carbon Dioxide (22-30) mmol/L BUN (9-20) mg/dL Glucose (74-99) mg/dL POC Glucose (mg/dL) 201 H 163 H (75-99) mg/dL Hemoglobin A1c (4.0-6.0) % Calcium (8.4-10.2) mg/dL 04/27/17 04/27/17 04/27/17 Range/Units 04:42 04:42 07:46 WBC 14.0 H (3.8-10.6) k/uL Hgb 11.8 L (13.0-17.5) gm/dL Hct 38.0 L (39.0-53.0) % MCHC (31.0-37.0) g/dL RDW 17.4 H (11.5-15.5) % Plt Count 80 L (150-450) k/uL Neutrophils # 13.2 H (1.3-7.7) k/uL Lymphocytes # 0.3 L (1.0-4.8) k/uL PT (9.0-12.0) sec INR (<1.2) APTT (22.0-30.0) sec Sodium 129 L (137-145) mmol/L Carbon Dioxide 20 L (22-30) mmol/L BUN 32 H (9-20) mg/dL Glucose 163 H (74-99) mg/dL POC Glucose (mg/dL) 173 H (75-99) mg/dL Hemoglobin A1c (4.0-6.0) % Calcium 7.9 L (8.4-10.2) mg/dL 04/27/17 Range/Units 12:07 WBC (3.8-10.6) k/uL Hgb (13.0-17.5) gm/dL Hct (39.0-53.0) % MCHC (31.0-37.0) g/dL RDW (11.5-15.5) % Plt Count (150-450) k/uL Neutrophils # (1.3-7.7) k/uL Lymphocytes # (1.0-4.8) k/uL PT (9.0-12.0) sec INR (<1.2) APTT (22.0-30.0) sec Sodium (137-145) mmol/L Carbon Dioxide (22-30) mmol/L BUN (9-20) mg/dL Glucose (74-99) mg/dL POC Glucose (mg/dL) 180 H (75-99) mg/dL Hemoglobin A1c (4.0-6.0) % Calcium (8.4-10.2) mg/dL Microbiology - Last 24 Hours (Table) 04/25/17 16:10 Urine Culture - Final Urine,Catheterized 04/25/17 17:44 Blood Culture - Preliminary Blood No Growth after 24 hours 04/25/17 14:40 Blood Culture - Preliminary Blood No Growth after 24 hours 04/25/17 14:40 Gram Stain - Preliminary Leg - Right Wound Culture - Preliminary Gram Neg Bacilli Assessment and Plan Assessment: Impression: 1 acute septic shock from cellulitis of the right lower extremity and right foot. Hence the patient will be kept on broad-spectrum antibiotics for now including vancomycin and Zosyn. Patient was treated as per the septic shock protocol, multiple fluid boluses were given up to 4 L, required norepinephrine for few hours, presently off norepinephrine, and remains on IV fluid at 100 mL per hour. Patient is also on GI and DVT prophylaxis, and he is on heparin subcu. 2 chronic atrial fibrillation, patient is presently on Cardizem drip for A. fib with RVR. Being addressed by cardiology. 3 history of multiple comorbidities including hypertension, hyperlipidemia, osteoarthritis, previous CABG, history of mitral valve replacement, history of dementia, hard of hearing, history of respiratory failure secondary to bilateral pneumonia secondary to Haemophilus influenza back in 2015. Recommendation: Continue present treatment plan including antibiotics, antiarrhythmic agents/Cardizem, heparin, adjust antibiotics based on the final culture, however vancomycin and Zosyn seems to be very appropriate for now. Patient will be monitored in the ICU for the next 24 hours, and if he remains hemodynamically stable, will transfer to a monitored bed on selective. Time with Patient: Less than 30
[2017-04-27 17:45] LABS: Glucose,Whole Blood 81 mg/dL (75-99)
[2017-04-27] MEDS: DILTIAZEM 125 MG in SODIUM CHLORIDE 0.9% 100 ML IV SCH (17:45)
[2017-04-27] MEDS ORDERED: WARFARIN 5 MG TAB PO ONE (18:00)
[2017-04-27 20:46] LABS: Glucose,Whole Blood 91 mg/dL (75-99)
[2017-04-27] MEDS ORDERED: APIXABAN 5 MG TAB PO SCH (21:00)
[2017-04-27] MEDS: LORazepam 2 MG/ML INJ IV PRN (21:51)
[2017-04-27] MEDS: METOPROLOL TARTRATE 50 MG TAB PO SCH (21:51)
--- NOTE | 2017-04-27 22:32 | PN ---
PROGRESS NOTE DATE OF SERVICE: 04/27/2017 REASON FOR FOLLOWUP: Right lower extremity cellulitis. INTERVAL HISTORY: The patient is afebrile. He is hemodynamically stable and breathing comfortably, slightly feeling better. The right leg and foot pain slightly improved. Denies any chest pain, shortness of breath. Occasional cough. No abdominal pain or any diarrhea. PHYSICAL EXAMINATION: Blood pressure 148/96 with a pulse of 95, temperature of 98. He is 97% on 2L. GENERAL DESCRIPTION: An elderly male lying in bed in no distress. RESPIRATORY SYSTEM: Unlabored breathing, clear to auscultation anteriorly. HEART: S1, S2. Regular rate and rhythm. ABDOMEN: Soft. No tenderness. RIGHT LEG: Overall swelling has slightly improved. LABS: Hemoglobin 11.8, white count 14,000 with a BUN of 32, creatinine of 1.11. Wound culture showing gram-negative. Blood culture so far negative. DIAGNOSTIC IMPRESSION AND PLAN: Patient with extensive cellulitis to right leg and foot area with component of sepsis, status post wound culture revealing gram-negative. Will keep the patient on Zosyn and vancomycin while waiting for the culture to finalize. If no gram-positive, vancomycin will be discontinued. Continue supportive care. MMODL / IJN: [id number] /
[2017-04-28] MEDS: HYDROmorphone 1 MG/ML 1 ML SYRINGE IVP PRN ×5 (00:21→23:10)
[2017-04-28] MEDS: LORazepam 2 MG/ML INJ IV PRN ×4 (00:22→23:10)
[2017-04-28] MEDS: PIPERACILLIN-TAZOBACTAM 3.375 GM in DEXTROSE/WATER 1 50ML.BAG IVPB SCH ×3 (00:23→16:58)
[2017-04-28] MEDS: SODIUM CHLORIDE 0.9% 1,000 ML IV SCH (04:55)
[2017-04-28] MEDS ORDERED: VANCOMYCIN TROUGH DUE 1 EACH MISC MISCELLANE ONE (05:00)
[2017-04-28] MEDS: VANCOMYCIN 1,500 MG in SODIUM CHLORIDE 0.9% 250 ML IVPB SCH (05:16)
[2017-04-28 05:24] LABS: Anisocytosis Slight; Basophils % (A) 0 %; CH 27.1; CHCM 31.7; Eosinophils % (A) 0 %; HCT 37.6 % (39.0-53.0); HDW 2.79; HGB 11.9 gm/dL (13.0-17.5); Luc # (Auto) 0.18; Luc % (Auto) 1; Lymphocytes # (A) 0.4 k/uL (1.0-4.8); Lymphocytes % (A) 3 %; MCH 27.1 pg (25.0-35.0); MCHC 31.6 g/dL (31.0-37.0); MCV 85.9 fL (80.0-100.0); Mean Platelet Volume 8.1; Monocytes # (A) 0.5 k/uL (0-1.0); Monocytes % (A) 4 %; Neutrophils # (A) 11.9 k/uL (1.3-7.7); Neutrophils % (A) 91 %; RBC 4.38 m/uL (4.30-5.90); RDW 17.1 % (11.5-15.5); WBC (Perox) 13.15
[2017-04-28 05:27] LABS: INR 1.2 (<1.2)
[2017-04-28 05:28] LABS: Prothrombin Time 11.6 sec (9.0-12.0)
[2017-04-28 05:38] LABS: Anion Gap 9 mmol/L; Blood Urea Nitrogen 35 mg/dL (9-20); Calcium 8.3 mg/dL (8.4-10.2); Carbon Dioxide 17 mmol/L (22-30); Chloride 104 mmol/L (98-107); Glucose 121 mg/dL (74-99); Magnesium 1.7 mg/dL (1.6-2.3); Non-African American GFR(MDRD) 54 (>60 ml/min/1.73 sqM); Phosphorus 4.3 mg/dL (2.5-4.5); Potassium 4.4 mmol/L (3.5-5.1); Sodium 130 mmol/L (137-145)
[2017-04-28] MEDS: METOPROLOL TARTRATE 50 MG TAB PO SCH ×2 (06:00→18:40)
[2017-04-28] MEDS: MAGNESIUM SULFATE-D5W PMX 1 GM in DEXTROSE/WATER 1 100ML.BAG IVPB SCH ×2 (07:38→08:29)
[2017-04-28] MEDS ORDERED: WARFARIN 5 MG TAB PO ONE ×2 (08:00→18:00)
[2017-04-28 08:12] LABS: Glucose,Whole Blood 105 mg/dL (75-99)
[2017-04-28] MEDS: INSULIN ASPART 100 UNIT/ML 1 ML 10 ML VIAL SQ SCH ×4 (08:26→20:57)
[2017-04-28] MEDS: PANTOPRAZOLE 40 MG TABLET PO SCH (08:29)
--- NOTE | 2017-04-28 08:35 | P.PN ---
Subjective Progress Note Date: 04/28/17 This is a 72-year-old male admitted for cellulitis of the right lower extremity. Patient is sleeping during exam, but arousable. Patient denies any new complaints today. Objective - Vital Signs Vital signs: Vital Signs Temp 97.5 F L 04/28/17 06:00 Pulse 108 H 04/28/17 07:00 Resp 10 L 04/28/17 07:00 BP 131/88 04/28/17 07:00 Pulse Ox 95 04/28/17 05:00 Intake & Output 04/27/17 04/28/17 04/28/17 18:59 06:59 18:59 Intake Total 2243.15 950 100 Output Total 1490 530 30 Balance 753.15 420 70 Weight 91.3 kg 91.4 kg Intake: IV 1000 950 100 Sodium Chloride 0.9% 1, 1000 950 100 000 ml @ 100 mls/hr IV . Q10H [facility] Rx#:[id number] Intake, IV Titration 523.15 Amount Diltiazem 125 mg In 23.15 Sodium Chloride 0.9% 100 ml @ 5 MG/HR 5 mls/hr IV .Q24H [facility] Rx#:[id number] Piperacillin-Tazobactam 3 100 .375 gm In Dextrose/Water 1 50ml.bag @ 12.5 mls/hr IVPB Q8HR [facility] Rx#: [id number] Sodium Chloride 0.9% 1, 150 000 ml @ 100 mls/hr IV . Q10H [facility] Rx#:[id number] Vancomycin 1,500 mg In 250 Sodium Chloride 0.9% 250 ml @ 125 mls/hr IVPB Q16H [facility] Rx#:[id number] Oral 720 Output: Urine 1490 530 30 Other: Voiding Method Indwelling Catheter Indwelling Catheter - Exam On exam patient is in no acute distress and appears comfortable. Patient is sleeping during exam, but arousable. On exam of the right lower extremity there is erythema and swelling. The swelling appears somewhat improved from yesterday 's exam. There is still tenderness to palpation of the right lower leg. There are several ulcerations of the right lower extremity that are weeping serosanguineous fluid. Neurovascular status and circulatory status are intact. - Labs CBC & Chem 7: 04/28/17 05:09 04/28/17 05:09 Labs: Abnormal Lab Results - Last 24 Hours (Table) 04/27/17 04/28/17 04/28/17 Range/Units 12:07 05:09 05:09 WBC 13.0 H (3.8-10.6) k/uL Hgb 11.9 L (13.0-17.5) gm/dL Hct 37.6 L (39.0-53.0) % RDW 17.1 H (11.5-15.5) % Plt Count 90 L (150-450) k/uL Neutrophils # 11.9 H (1.3-7.7) k/uL Lymphocytes # 0.4 L (1.0-4.8) k/uL INR (<1.2) Sodium 130 L (137-145) mmol/L Carbon Dioxide 17 L (22-30) mmol/L BUN 35 H (9-20) mg/dL Creatinine 1.30 H (0.66-1.25) mg/dL Glucose 121 H (74-99) mg/dL POC Glucose (mg/dL) 180 H (75-99) mg/dL Calcium 8.3 L (8.4-10.2) mg/dL 04/28/17 04/28/17 Range/Units 05:09 07:42 WBC (3.8-10.6) k/uL Hgb (13.0-17.5) gm/dL Hct (39.0-53.0) % RDW (11.5-15.5) % Plt Count (150-450) k/uL Neutrophils # (1.3-7.7) k/uL Lymphocytes # (1.0-4.8) k/uL INR 1.2 H (<1.2) Sodium (137-145) mmol/L Carbon Dioxide (22-30) mmol/L BUN (9-20) mg/dL Creatinine (0.66-1.25) mg/dL Glucose (74-99) mg/dL POC Glucose (mg/dL) 105 H (75-99) mg/dL Calcium (8.4-10.2) mg/dL Microbiology - Last 24 Hours (Table) 04/25/17 17:44 Blood Culture - Preliminary Blood No Growth after 48 hours 04/25/17 14:40 Blood Culture - Preliminary Blood No Growth after 48 hours 04/25/17 14:40 Gram Stain - Final Leg - Right Wound Culture - Final Gram Neg Bacilli Assessment and Plan (1) Cellulitis of right leg Current Visit: Yes Status: Acute Code(s): L03.115 - CELLULITIS OF RIGHT LOWER LIMB SNOMED Code(s): 218861646 Plan: #1. X-rays of the right femur show [id number] osteonecrosis of the right hip. Patient reports chronic pain of the right hip that is no worse than usual. Do not believe this to be an infection of the right hip. #2. Continue IV antibiotics for right lower extremity cellulitis per infectious disease. #3. No surgical intervention planned at this time. Will continue to follow the patient closely.
--- NOTE | 2017-04-28 09:03 | XR ---
EXAMINATION TYPE: XR chest 1V DATE OF EXAM: 04/28/2017 COMPARISON: 04/27/2017 INDICATION: Increased O2 demands, difficulty with oxygenation TECHNIQUE: Single frontal view of the chest is obtained. FINDINGS: The heart size is normal. The pulmonary vasculature is normal. Small right lower lobe infiltrate appears to be developing. Sternotomy wires are in the midline. IMPRESSION: 1. Mild developing right lower lobe infiltrate. Clinical correlation recommended for atelectasis or p neumonia.
[2017-04-28] MEDS: QUEtiapine 25 MG TAB PO SCH ×3 (10:16→23:46)
--- NOTE | 2017-04-28 10:55 | P.PN ---
Subjective Principal diagnosis: Atrial fibrillation This is a 72-year-old gentleman who does not follow with an extensive past medical history consistent of valvular heart disease and according to him status post mitral valve replacement, possible coronary artery disease, hypertension, dyslipidemia, and chronic atrial fibrillation currently not on any anticoagulation, presented to the emergency room complaining of right leg discomfort for as well as redness and swelling. The patient himself is a poor historian. He stated that he has been experiencing severe right leg discomfort as well as severe redness of the right leg. Beside that he was spiking fever when he presented to the emergency room. He was feeling very weak over the last several days and as a matter of fact he was unable to get off and stand up. He did not have any symptoms of chest pain or chest discomfort nor shortness of breath. When the patient presented to the emergency room he was diagnosed with severe right lower extremity cellulitis with possible osteomyelitis. An orthopedic surgeon is on the case at this point. Beside that he was very dry and receives 4 L of 0.9 normal saline. We get involved in the care of the patient because when he presented he was in A. fib with RVR which is likely secondary to his dehydration as well as to the temperature. The patient was started on Cardizem and drip. He was hypotensive when he presented and currently he is off the Levophed. On follow-up with the patient today on April 28, and he is agitated and confused but he did not get good sleep last night and he does have some underlying dementia. Hemodynamically he is stable. I started him on Coumadin yesterday. The echocardiogram revealed normal LV function with normally functioning bioprosthetic mitral valve. Objective - Vital Signs Vital signs: Vital Signs Temp 97.5 F L 04/28/17 08:00 Pulse 110 H 04/28/17 10:00 Resp 28 H 04/28/17 10:00 BP 138/101 04/28/17 10:00 Pulse Ox 95 04/28/17 10:00 Intake & Output 04/27/17 04/28/17 04/28/17 18:59 06:59 18:59 Intake Total 2243.15 950 300 Output Total 1490 530 55 Balance 753.15 420 245 Weight 91.3 kg 91.4 kg Intake: IV 1000 950 200 Sodium Chloride 0.9% 1, 1000 950 200 000 ml @ 100 mls/hr IV . Q10H [facility] Rx#:[id number] Intake, IV Titration 523.15 100 Amount Diltiazem 125 mg In 23.15 Sodium Chloride 0.9% 100 ml @ 5 MG/HR 5 mls/hr IV .Q24H [facility] Rx#:[id number] Magnesium Sulfate-D5w Pmx 100 1 gm In Dextrose/Water 1 100ml.bag @ 100 mls/hr IVPB Q1H [facility] Rx#: [id number] Piperacillin-Tazobactam 3 100 .375 gm In Dextrose/Water 1 50ml.bag @ 12.5 mls/hr IVPB Q8HR [facility] Rx#: [id number] Sodium Chloride 0.9% 1, 150 000 ml @ 100 mls/hr IV . Q10H [facility] Rx#:[id number] Vancomycin 1,500 mg In 250 Sodium Chloride 0.9% 250 ml @ 125 mls/hr IVPB Q16H [facility] Rx#:[id number] Oral 720 Output: Urine 1490 530 55 Other: Voiding Method Indwelling Catheter Indwelling Catheter Indwelling Catheter - Constitutional General appearance: Present: mild distress - Respiratory Respiratory: bilateral: diminished - Cardiovascular Rhythm: irregularly irregular - Labs CBC & Chem 7: 04/28/17 05:09 04/28/17 05:09 Labs: Abnormal Lab Results - Last 24 Hours (Table) 04/27/17 04/28/17 04/28/17 Range/Units 12:07 05:09 05:09 WBC 13.0 H (3.8-10.6) k/uL Hgb 11.9 L (13.0-17.5) gm/dL Hct 37.6 L (39.0-53.0) % RDW 17.1 H (11.5-15.5) % Plt Count 90 L (150-450) k/uL Neutrophils # 11.9 H (1.3-7.7) k/uL Lymphocytes # 0.4 L (1.0-4.8) k/uL INR (<1.2) Sodium 130 L (137-145) mmol/L Carbon Dioxide 17 L (22-30) mmol/L BUN 35 H (9-20) mg/dL Creatinine 1.30 H (0.66-1.25) mg/dL Glucose 121 H (74-99) mg/dL POC Glucose (mg/dL) 180 H (75-99) mg/dL Calcium 8.3 L (8.4-10.2) mg/dL 04/28/17 04/28/17 Range/Units 05:09 07:42 WBC (3.8-10.6) k/uL Hgb (13.0-17.5) gm/dL Hct (39.0-53.0) % RDW (11.5-15.5) % Plt Count (150-450) k/uL Neutrophils # (1.3-7.7) k/uL Lymphocytes # (1.0-4.8) k/uL INR 1.2 H (<1.2) Sodium (137-145) mmol/L Carbon Dioxide (22-30) mmol/L BUN (9-20) mg/dL Creatinine (0.66-1.25) mg/dL Glucose (74-99) mg/dL POC Glucose (mg/dL) 105 H (75-99) mg/dL Calcium (8.4-10.2) mg/dL Microbiology - Last 24 Hours (Table) 04/25/17 14:40 Gram Stain - Final Leg - Right Wound Culture - Final Gram Neg Bacilli 04/25/17 17:44 Blood Culture - Preliminary Blood No Growth after 48 hours 04/25/17 14:40 Blood Culture - Preliminary Blood No Growth after 48 hours Assessment and Plan Assessment: This is a 72-year-old gentleman with a past medical history significant for possible CAD, valvular heart disease and status post mitral valve replacement, hypertension, and dyslipidemia and chronic A. fib was admitted to the hospital with right lower extremity cellulitis which seems to be severe was possible osteomyelitis. The patient is agitated and confused this morning. Hemodynamically he continues to be stable and he was started on Coumadin and we'll continue that. The echocardiogram was reviewed.
[2017-04-28 11:15] LABS: Glucose,Whole Blood 161 mg/dL (75-99)
[2017-04-28] MEDS ORDERED: SODIUM CHLORIDE 0.9% 1,000 ML IV ONE (11:24)
[2017-04-28] MEDS: DEXTROSE 5%-0.45% NACL 1,000 ML IV SCH ×2 (11:28→20:51)
[2017-04-28 12:47] LABS: Glucose,Whole Blood 160 mg/dL (75-99)
--- NOTE | 2017-04-28 12:51 | P.PN ---
Subjective Progress Note Date: 04/28/17 Principal diagnosis: Acute septic shock and cellulitis of the right lower extremity. This is a 72-year-old white male with history of multiple medical problems including osteoarthritis, hypertension, coronary artery disease and previous CABG, chronic atrial fibrillation, previous mitral valve replacement, history of dementia, patient presented to the ER yesterday with a few weeks history of right leg pain, redness, and swelling. The patient himself is a very poor historian, and he is very hard of hearing. Patient denies any trauma to the right lower extremity. Pain has been getting more severe and throbbing without radiation involving mostly the right lower extremity below the knee extending to the foot and toes. Patient denied any fever , however he had a temp of 102 on presentation. Patient was also noted noted to be hypotensive in the ER, required 4 L of fluid boluses and required placement on norepinephrine for few hours. His norepinephrine was discontinued 6 hours prior to my evaluation. His blood pressures seems to be relatively stable at this point. Patient was also on Cardizem and he remains on Cardizem at 5 mg per hour for atrial fibrillation and RVR. X-rays and CT of the right leg failed to show necrotizing fasciitis, they all showed mostly swelling of the soft tissue, and no evidence of abscess to drain. Considering the presentation of severe cellulitis involving the right lower extremity, and considering the hypotension requiring fluid boluses and norepinephrine, patient was admitted to the ICU and this consult was initiated. Patient is now on vancomycin and Zosyn, blood cultures are pending. Presently, the patient denies any headache, no blurred vision, no dizziness, denies any chest pain, no shortness of breath, no nausea no vomiting no abdominal pain. Patient is very hard of hearing, complaining of mostly severe pain of the right leg and the right foot, normally takes [place] at home for his pain control. On 04/27/2017, patient remains on antibiotics for his right lower extremity cellulitis and septic shock. Off norepinephrine, urine output is reasonable, patient is hemodynamically stable, cultures from the wound in the right lower extremity is positive for gram-negative bacilli. Blood cultures are pending. So far negative. WBC count is 14.0 hemoglobin is 11.8 electrolytes showed slightly low sodium of 129. Renal profile is improved with BUN of 52 creatinine is 1.11. Patient is not in any form of respiratory distress. On 04/28/2017, patient remains in the ICU, hemodynamically stable, however the patient has been experiencing intermittent episodes of agitation and hallucinations. Requiring multiple doses of Ativan last night, today I recommended starting the patient on Seroquel. A bit reluctant to start Haldol at this point yet. Patient continues to have significant cellulitis of the right lower extremity, he also seems to be developing significant amount of ecchymosis in lower abdomen, and there is some mottling noted in the left lower extremity as well as upper portion of the right upper extremity. Hence I have recommended stopping heparin, patient was already started on Coumadin yesterday. Platelets are a bit on the low side, patient had a previous bioprosthetic valve. His extreme agitation overnight seems to respond well to Ativan, and hopefully will do better with Seroquel. Patient remains on antibiotics as per infectious disease, his wound culture came back positive for gram-negative bacilli, blood cultures are negative, final sensitivity on the wound culture is pending. Objective - Vital Signs Vital signs: Vital Signs Temp 97.6 F 04/28/17 11:00 Pulse 125 H 04/28/17 11:00 Resp 24 04/28/17 11:00 BP 138/101 04/28/17 11:00 Pulse Ox 95 04/28/17 10:00 Intake & Output 04/27/17 04/28/17 04/28/17 18:59 06:59 18:59 Intake Total 2243.15 950 1700 Output Total 1490 530 125 Balance 753.15 420 1575 Weight 91.3 kg 91.4 kg Intake: IV 8376 231 3457 Piperacillin-Tazobactam 3 100 .375 gm In Dextrose/Water 1 50ml.bag @ 12.5 mls/hr IVPB Q8HR [facility] Rx#: [id number] Sodium Chloride 0.9% 1, 2593 356 8112 000 ml @ 100 mls/hr IV . Q10H [facility] Rx#:[id number] Intake, IV Titration 523.15 200 Amount Diltiazem 125 mg In 23.15 Sodium Chloride 0.9% 100 ml @ 5 MG/HR 5 mls/hr IV .Q24H [facility] Rx#:[id number] Magnesium Sulfate-D5w Pmx 200 1 gm In Dextrose/Water 1 100ml.bag @ 100 mls/hr IVPB Q1H [facility] Rx#: [id number] Piperacillin-Tazobactam 3 100 .375 gm In Dextrose/Water 1 50ml.bag @ 12.5 mls/hr IVPB Q8HR [facility] Rx#: [id number] Sodium Chloride 0.9% 1, 150 000 ml @ 100 mls/hr IV . Q10H [facility] Rx#:[id number] Vancomycin 1,500 mg In 250 Sodium Chloride 0.9% 250 ml @ 125 mls/hr IVPB Q16H [facility] Rx#:[id number] Oral 720 Output: Urine 1490 530 125 Other: Voiding Method Indwelling Catheter Indwelling Catheter Indwelling Catheter - Exam General appearance: Revealed a 72-year-old white male, in no distress, patient is hard of hearing, complaining mostly of pain of the right foot and the right lower extremity. Patient seems to be more confused today and seems to be hallucinating. I believe the patient is developing what seems to be a picture of IC psychosis. Head exam: Normocephalic, atraumatic. Looks slightly pale. Eye exam: PERRLA, EOMI, no icterus, pale and dry mucous membranes noted. ENT exam: Pale and dry mucous membranes, otherwise nasal mucosa and oral mucosa is normal. Throat is clear. Neck exam: Short neck, obese, supple, no masses, no JVD, no stridor. Respiratory exam: Clear, diminished at the bases, no rhonchi and no wheezes. No chest wall tenderness. Cardiovascular Exam: Regular rhythm, no S3 gallop, 2/6 systolic murmur throughout the precordium. GI/Abdominal exam: Soft nontender no megaly no rebound no guarding. Areas of ecchymosis noted in the abdominal wall at the site of heparin injections. Extremities exam: Diffuse swelling and erythema of the right foot and the right leg all the way up to the knee, and some erythematous changes noted in the right thigh area. Moderate to severe diffuse tenderness. There is erythema from the foot to the knee region with streaking towards the groin. There are some stage I/2 skin ulcers. There is some purplish discoloration of toes and fingers bilaterally. . Pulses diminished throughout.) Back exam: Unremarkable. Neurological exam: Hard of hearing, otherwise no focal neurologic deficit. Psychiatric exam: Normal mood and affect, normal mental status examination. Skin: Erythema as noted involving the right leg. - Labs CBC & Chem 7: 04/28/17 05:09 04/28/17 05:09 Labs: Abnormal Lab Results - Last 24 Hours (Table) 04/28/17 04/28/17 04/28/17 Range/Units 05:09 05:09 05:09 WBC 13.0 H (3.8-10.6) k/uL Hgb 11.9 L (13.0-17.5) gm/dL Hct 37.6 L (39.0-53.0) % RDW 17.1 H (11.5-15.5) % Plt Count 90 L (150-450) k/uL Neutrophils # 11.9 H (1.3-7.7) k/uL Lymphocytes # 0.4 L (1.0-4.8) k/uL INR 1.2 H (<1.2) Sodium 130 L (137-145) mmol/L Carbon Dioxide 17 L (22-30) mmol/L BUN 35 H (9-20) mg/dL Creatinine 1.30 H (0.66-1.25) mg/dL Glucose 121 H (74-99) mg/dL POC Glucose (mg/dL) (75-99) mg/dL Calcium 8.3 L (8.4-10.2) mg/dL 04/28/17 04/28/17 Range/Units 07:42 11:10 WBC (3.8-10.6) k/uL Hgb (13.0-17.5) gm/dL Hct (39.0-53.0) % RDW (11.5-15.5) % Plt Count (150-450) k/uL Neutrophils # (1.3-7.7) k/uL Lymphocytes # (1.0-4.8) k/uL INR (<1.2) Sodium (137-145) mmol/L Carbon Dioxide (22-30) mmol/L BUN (9-20) mg/dL Creatinine (0.66-1.25) mg/dL Glucose (74-99) mg/dL POC Glucose (mg/dL) 105 H 161 H (75-99) mg/dL Calcium (8.4-10.2) mg/dL Microbiology - Last 24 Hours (Table) 04/25/17 14:40 Gram Stain - Final Leg - Right Wound Culture - Final Gram Neg Bacilli 04/25/17 17:44 Blood Culture - Preliminary Blood No Growth after 48 hours 04/25/17 14:40 Blood Culture - Preliminary Blood No Growth after 48 hours Assessment and Plan Assessment: Impression: 1 acute septic shock from cellulitis of the right lower extremity and right foot. Hence the patient will be kept on broad-spectrum antibiotics for now including vancomycin and Zosyn. Patient was treated as per the septic shock protocol, multiple fluid boluses were given up to 4 L, required norepinephrine for few hours, presently off norepinephrine, and remains on IV fluid at 100 mL per hour. Patient is also on GI and DVT prophylaxis, and he is on Coumadin, and heparin was discontinued. 2 chronic atrial fibrillation, patient is presently on Cardizem drip for A. fib with RVR. Being addressed by cardiology. 3 acute ICU psychosis, patient is presently on Ativan, Seroquel was added, may have to consider Haldol or Precedex. 3 history of multiple comorbidities including hypertension, hyperlipidemia, osteoarthritis, previous CABG, history of mitral valve replacement, history of dementia, hard of hearing, history of respiratory failure secondary to bilateral pneumonia secondary to Haemophilus influenza back in 2015. Recommendation: Continue present treatment plan including antibiotics, antiarrhythmic agents/Cardizem, Coumadin, adjust antibiotics based on the final culture, however vancomycin and Zosyn seems to be very appropriate for now. Patient will be monitored in the ICU for the next 24 hours, and if he remains hemodynamically stable, will transfer to a monitored bed on selective. Time with Patient: Less than 30
[2017-04-28 17:34] LABS: Glucose,Whole Blood 177 mg/dL (75-99)
[2017-04-28] MEDS: DILTIAZEM 125 MG in SODIUM CHLORIDE 0.9% 100 ML IV SCH (18:16)
[2017-04-28 21:00] LABS: Glucose,Whole Blood 182 mg/dL (75-99)
--- NOTE | 2017-04-28 21:19 | PN ---
PROGRESS NOTE DATE OF SERVICE: 04/28/2017. REASON FOR FOLLOWUP: Right lower extremity cellulitis. INTERVAL HISTORY: The patient is afebrile. He is hemodynamically stable, not on any pressor support. The patient was noticed to have slight agitation, for the patient was given some Seroquel. At the time of evaluation early this afternoon, the patient was sleepy, but in no distress. No nausea, vomiting or any diarrhea per the nursing staff. EXAMINATION: Blood pressure 141/97 with a pulse of 102, temperature 97.5. He is 92% on room air. GENERAL DESCRIPTION: An elderly male lying in bed in no distress. RESPIRATORY SYSTEM: Unlabored breathing. Clear to auscultation anteriorly. HEART: S1, S2. Regular rate and rhythm. ABDOMEN: Soft. No tenderness. Right leg swelling, redness have slightly decreased. LABS: Hemoglobin 11.9, white count of 13,000 with BUN of 35, creatinine is 1.30. Wound culture is showing gram-negative. Blood culture has been negative. DIAGNOSTIC IMPRESSION AND PLAN: Patient with extensive right lower extremity cellulitis and some superficial wound with blister. No evidence of any abscess on the CT. The patient will continue vancomycin and Zosyn. Waiting for the culture to finalize to adjust antibiotic further. Family was present at bedside. Their questions were answered. MMODL / IJN: [id number] /
[2017-04-28] MEDS: VANCOMYCIN 1,250 MG in SODIUM CHLORIDE 0.9% 250 ML IVPB SCH (23:11)
--- NOTE | 2017-04-28 23:14 | P.PN ---
Subjective Progress Note Date: 04/27/17 Principal diagnosis: Septic shock 72-year-old male who presented to the emergency room on 04/25/2017 with a chief complaint of right leg pain. Apparently, the patient was experiencing severe right leg pains the night before he presented to the hospital and he decided to lay down on the floor and he laid there the entire day until he was brought by EMS to the hospital. The patient has a history of chronic wounds to his right leg. At his last visit to his PCP, it was noted that there were no open lesions. The patient also has a history of atrial fibrillation, GERD, hyperlipidemia, hypertension, CABG with mitral valve replacement, dementia, and benign prostatic hyperplasia. The patient was hospitalized in 2014 for bilateral pneumonia that required mechanical ventilation secondary to Haemophilus influenza. According to Dr. 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 In the emergency room, multiple xrays were completed. A right femur x-ray shows mild right hip osteonecrosis. X-ray of the tibia and fibula show small nonspecific knee joint effusion, no acute osseous abnormality, and soft tissue swelling greater towards the ankle. A foot x-ray was completed which shows marked dorsal soft tissue swelling but did not reveal acute osseous abnormalities. The patient was found to be in atrial fibrillation with rapid ventricular rate in the 150s. He was started on a Cardizem drip. He was also hypotensive with a systolic blood pressure in the 70s to 80s. He required multiple fluid boluses and was also started on vasopressors. His temperature was noted to be 101.4. White count on admission was 19.6. Hemoglobin 13.1. His sodium was low at 126. Potassium was slightly elevated at 5.2. BUN/ creatinine were also elevated. BUN was 44 and creatinine 1.4. Lactic acid was significantly elevated at 4.7. Troponin was 0.232. He was started on Zosyn and vancomycin. He was admitted to the intensive care unit under the care of Dr. Mireles. Consults were placed to account auditor, Dr. García. Consults were also placed to infectious disease, cardiology, and orthopedics. On 04/27/2017 Patient is off pressor support. Currently on vancomycin and Zosyn. Off Cardizem drip as well heart rate is better controlled. Wound culture showed gram-negative bacilli Blood cultures showed no growth so far area leukocytosis improved to 14.0. Sodium level found to be 129 creatinine 1.11 currently patient is awake and oriented and mental status much improved. Patient does have underlying hearing difficulty. All other review of systems negative except the above Current medications reviewed. Objective - Vital Signs Vital signs: Vital Signs Temp 97.2 F L 04/28/17 12:00 Pulse 96 04/28/17 14:00 Resp 23 04/28/17 14:00 BP 134/93 04/28/17 14:00 Pulse Ox 95 04/28/17 10:00 Intake & Output 04/27/17 04/28/17 04/28/17 18:59 06:59 18:59 Intake Total 2243.15 950 1920 Output Total 1490 530 275 Balance 753.15 420 1645 Weight 91.3 kg 91.4 kg Intake: IV 2348 112 0958 Piperacillin-Tazobactam 3 100 .375 gm In Dextrose/Water 1 50ml.bag @ 12.5 mls/hr IVPB Q8HR [facility] Rx#: [id number] Sodium Chloride 0.9% 1, 6101 798 7988 000 ml @ 100 mls/hr IV . Q10H [facility] Rx#:[id number] Intake, IV Titration 523.15 400 Amount Dextrose 5%-0.45% NaCl 1, 200 000 ml @ 100 mls/hr IV . Q10H [facility] Rx#:[id number] Diltiazem 125 mg In 23.15 Sodium Chloride 0.9% 100 ml @ 5 MG/HR 5 mls/hr IV .Q24H [facility] Rx#:[id number] Magnesium Sulfate-D5w Pmx 200 1 gm In Dextrose/Water 1 100ml.bag @ 100 mls/hr IVPB Q1H [facility] Rx#: [id number] Piperacillin-Tazobactam 3 100 .375 gm In Dextrose/Water 1 50ml.bag @ 12.5 mls/hr IVPB Q8HR [facility] Rx#: [id number] Sodium Chloride 0.9% 1, 150 000 ml @ 100 mls/hr IV . Q10H [facility] Rx#:[id number] Vancomycin 1,500 mg In 250 Sodium Chloride 0.9% 250 ml @ 125 mls/hr IVPB Q16H [facility] Rx#:[id number] Oral 720 Output: Urine 1490 530 275 Other: Voiding Method Indwelling Catheter Indwelling Catheter Indwelling Catheter - Exam PHYSICAL EXAMINATION: Patient is lying in the bed comfortably, no acute distress, awake alert and oriented.. Patient is hard of hearing HEENT: Normocephalic. Neck is supple. Pupils reactive. Nostrils clear. Oral cavity is moist. Ears reveal no drainage. Neck reveals no JVD, carotid bruits, or thyromegaly. CHEST EXAMINATION: Trachea is central. Symmetrical expansion. Lung bains clear to auscultation and percussion. CARDIAC: Normal S1, S2 with no gallops. Systolic murmur ABDOMEN: Soft. Bowel sounds normal. No organomegaly. No abdominal bruits. Extremities: Right lower activity swelling and erythema up to the knee and streaking towards groin area. Slight discoloration of toes. Warm to touch and tender to palpation Neurologically awake, alert, oriented x3 with well-coordinated movements. No focal deficits noted Skin: No rash or skin lesions except above. Psychiatric: Cooperative. Nonsuicidal Musculoskeletal: No joint swelling or deformity. Normal range of motion. - Labs CBC & Chem 7: 04/28/17 05:09 04/28/17 05:09 Labs: Abnormal Lab Results - Last 24 Hours (Table) 04/28/17 04/28/17 04/28/17 Range/Units 05:09 05:09 05:09 WBC 13.0 H (3.8-10.6) k/uL Hgb 11.9 L (13.0-17.5) gm/dL Hct 37.6 L (39.0-53.0) % RDW 17.1 H (11.5-15.5) % Plt Count 90 L (150-450) k/uL Neutrophils # 11.9 H (1.3-7.7) k/uL Lymphocytes # 0.4 L (1.0-4.8) k/uL INR 1.2 H (<1.2) Sodium 130 L (137-145) mmol/L Carbon Dioxide 17 L (22-30) mmol/L BUN 35 H (9-20) mg/dL Creatinine 1.30 H (0.66-1.25) mg/dL Glucose 121 H (74-99) mg/dL POC Glucose (mg/dL) (75-99) mg/dL Calcium 8.3 L (8.4-10.2) mg/dL 04/28/17 04/28/17 04/28/17 Range/Units 07:42 11:10 12:29 WBC (3.8-10.6) k/uL Hgb (13.0-17.5) gm/dL Hct (39.0-53.0) % RDW (11.5-15.5) % Plt Count (150-450) k/uL Neutrophils # (1.3-7.7) k/uL Lymphocytes # (1.0-4.8) k/uL INR (<1.2) Sodium (137-145) mmol/L Carbon Dioxide (22-30) mmol/L BUN (9-20) mg/dL Creatinine (0.66-1.25) mg/dL Glucose (74-99) mg/dL POC Glucose (mg/dL) 105 H 161 H 160 H (75-99) mg/dL Calcium (8.4-10.2) mg/dL Microbiology - Last 24 Hours (Table) 04/25/17 14:40 Gram Stain - Final Leg - Right Wound Culture - Final Gram Neg Bacilli 04/25/17 17:44 Blood Culture - Preliminary Blood No Growth after 48 hours 04/25/17 14:40 Blood Culture - Preliminary Blood No Growth after 48 hours Assessment and Plan Assessment: Acute septic shock, present on admission, secondary to cellulitis of right lower extremity Cellulitis of right lower extremity and foot, present on admission Hypotension, secondary to sepsis, requiring vasopressors and fluid resuscitation , resolved Chronic atrial fibrillation, maintained on Lopressor and Digoxin outpatient, not on long-term anticoagulation Atrial fibrillation with rapid ventricular rate, on Cardizem drip History of coronary artery disease with previous CABG and mitral valve replacement Previous history of MRSA 2 History of bilateral pneumonia secondary to Haemophilus influenza requiring mechanical ventilation in 2015 Gastroesophageal reflux disease Hyperlipidemia Essential hypertension Osteoarthritis Dementia PLAN: -ICU management per account auditor-Continue Cardizem drip and IV fluids. Continue with antibiotics in the form of vancomycin and Zosyn. Follow up blood cultures and urine culture. Continue with home medications. Ortho recommends no surgical intervention. Replace lites. Monitor sodium level. GI and DVT prophylaxis.
--- NOTE | 2017-04-28 23:20 | P.PN ---
Subjective Progress Note Date: 04/28/17 Principal diagnosis: Septic shock 72-year-old male who presented to the emergency room on 04/25/2017 with a chief complaint of right leg pain. Apparently, the patient was experiencing severe right leg pains the night before he presented to the hospital and he decided to lay down on the floor and he laid there the entire day until he was brought by EMS to the hospital. The patient has a history of chronic wounds to his right leg. At his last visit to his PCP, it was noted that there were no open lesions. The patient also has a history of atrial fibrillation, GERD, hyperlipidemia, hypertension, CABG with mitral valve replacement, dementia, and benign prostatic hyperplasia. The patient was hospitalized in 2014 for bilateral pneumonia that required mechanical ventilation secondary to Haemophilus influenza. According to Dr. 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 In the emergency room, multiple xrays were completed. A right femur x-ray shows mild right hip osteonecrosis. X-ray of the tibia and fibula show small nonspecific knee joint effusion, no acute osseous abnormality, and soft tissue swelling greater towards the ankle. A foot x-ray was completed which shows marked dorsal soft tissue swelling but did not reveal acute osseous abnormalities. The patient was found to be in atrial fibrillation with rapid ventricular rate in the 150s. He was started on a Cardizem drip. He was also hypotensive with a systolic blood pressure in the 70s to 80s. He required multiple fluid boluses and was also started on vasopressors. His temperature was noted to be 101.4. White count on admission was 19.6. Hemoglobin 13.1. His sodium was low at 126. Potassium was slightly elevated at 5.2. BUN/ creatinine were also elevated. BUN was 44 and creatinine 1.4. Lactic acid was significantly elevated at 4.7. Troponin was 0.232. He was started on Zosyn and vancomycin. He was admitted to the intensive care unit under the care of Dr. Mireles. Consults were placed to terrazzo layer helper, Dr. García. Consults were also placed to infectious disease, cardiology, and orthopedics. On 04/27/2017 Patient is off pressor support. Currently on vancomycin and Zosyn. Off Cardizem drip as well heart rate is better controlled. Wound culture showed gram-negative bacilli Blood cultures showed no growth so far area leukocytosis improved to 14.0. Sodium level found to be 129 creatinine 1.11 currently patient is awake and oriented and mental status much improved. Patient does have underlying hearing difficulty. On 04/28/2017 Patient was agitated and was hallucinating this morning. And also overnight. Patient was given IV Ativan. Currently patient is lying comfortably. Otherwise his sodium level improved to 130 today. Will continue IV fluids in the form of normal saline. Patient is still having significant lower extremity right-sided swelling and redness and to stage II ulcers. Leukocytosis improved to 13.0. Otherwise his renal function worsened with creatinine level increased from 1.1-1.3. Wound cultures so is showing gram-negative bacilli. No fever no chills. Blood cultures and urine cultures are still pending. All other review of systems negative except the above Current medications reviewed. Objective - Vital Signs Vital signs: Vital Signs Temp 98.3 F 04/28/17 20:00 Pulse 77 04/28/17 21:00 Resp 15 04/28/17 21:00 BP 113/80 04/28/17 21:00 Pulse Ox 100 04/28/17 21:00 Intake & Output 04/28/17 04/28/17 04/29/17 06:59 18:59 06:59 Intake Total 950 2470 357.5 Output Total 530 505 115 Balance 420 1965 242.5 Weight 91.4 kg Intake: IV 950 1570 57.5 Piperacillin-Tazobactam 3 100 37.5 .375 gm In Dextrose/Water 1 50ml.bag @ 12.5 mls/hr IVPB Q8HR [facility] Rx#: [id number] Sodium Chloride 0.9% 1, 950 1470 20 000 ml @ 100 mls/hr IV . Q10H [facility] Rx#:[id number] Intake, IV Titration 900 300 Amount Dextrose 5%-0.45% NaCl 1, 700 300 000 ml @ 100 mls/hr IV . Q10H [facility] Rx#:[id number] Magnesium Sulfate-D5w Pmx 200 1 gm In Dextrose/Water 1 100ml.bag @ 100 mls/hr IVPB Q1H [facility] Rx#: [id number] Output: Urine 530 505 115 Other: Voiding Method Indwelling Catheter Indwelling Catheter Indwelling Catheter - Exam PHYSICAL EXAMINATION: Patient is lying in the bed comfortably, no acute distress, awake alert and oriented.. Patient is hard of hearing HEENT: Normocephalic. Neck is supple. Pupils reactive. Nostrils clear. Oral cavity is moist. Ears reveal no drainage. Neck reveals no JVD, carotid bruits, or thyromegaly. CHEST EXAMINATION: Trachea is central. Symmetrical expansion. Lung bains clear to auscultation and percussion. CARDIAC: Normal S1, S2 with no gallops. Systolic murmur ABDOMEN: Soft. Bowel sounds normal. No organomegaly. No abdominal bruits. Extremities: Right lower activity swelling and erythema up to the knee and streaking towards groin area. Slight discoloration of toes. Warm to touch and tender to palpation Neurologically awake, alert, oriented x3 with well-coordinated movements. No focal deficits noted Skin: No rash or skin lesions except above. Psychiatric: Cooperative. Nonsuicidal Musculoskeletal: No joint swelling or deformity. Normal range of motion. - Labs CBC & Chem 7: 04/28/17 05:09 04/28/17 05:09 Labs: Abnormal Lab Results - Last 24 Hours (Table) 04/28/17 04/28/17 04/28/17 Range/Units 05:09 05:09 05:09 WBC 13.0 H (3.8-10.6) k/uL Hgb 11.9 L (13.0-17.5) gm/dL Hct 37.6 L (39.0-53.0) % RDW 17.1 H (11.5-15.5) % Plt Count 90 L (150-450) k/uL Neutrophils # 11.9 H (1.3-7.7) k/uL Lymphocytes # 0.4 L (1.0-4.8) k/uL INR 1.2 H (<1.2) Sodium 130 L (137-145) mmol/L Carbon Dioxide 17 L (22-30) mmol/L BUN 35 H (9-20) mg/dL Creatinine 1.30 H (0.66-1.25) mg/dL Glucose 121 H (74-99) mg/dL POC Glucose (mg/dL) (75-99) mg/dL Calcium 8.3 L (8.4-10.2) mg/dL 04/28/17 04/28/17 04/28/17 Range/Units 07:42 11:10 12:29 WBC (3.8-10.6) k/uL Hgb (13.0-17.5) gm/dL Hct (39.0-53.0) % RDW (11.5-15.5) % Plt Count (150-450) k/uL Neutrophils # (1.3-7.7) k/uL Lymphocytes # (1.0-4.8) k/uL INR (<1.2) Sodium (137-145) mmol/L Carbon Dioxide (22-30) mmol/L BUN (9-20) mg/dL Creatinine (0.66-1.25) mg/dL Glucose (74-99) mg/dL POC Glucose (mg/dL) 105 H 161 H 160 H (75-99) mg/dL Calcium (8.4-10.2) mg/dL 04/28/17 04/28/17 Range/Units 17:32 20:54 WBC (3.8-10.6) k/uL Hgb (13.0-17.5) gm/dL Hct (39.0-53.0) % RDW (11.5-15.5) % Plt Count (150-450) k/uL Neutrophils # (1.3-7.7) k/uL Lymphocytes # (1.0-4.8) k/uL INR (<1.2) Sodium (137-145) mmol/L Carbon Dioxide (22-30) mmol/L BUN (9-20) mg/dL Creatinine (0.66-1.25) mg/dL Glucose (74-99) mg/dL POC Glucose (mg/dL) 177 H 182 H (75-99) mg/dL Calcium (8.4-10.2) mg/dL Microbiology - Last 24 Hours (Table) 04/25/17 17:44 Blood Culture - Preliminary Blood No Growth after 72 hours 04/25/17 14:40 Blood Culture - Preliminary Blood No Growth after 72 hours 04/25/17 14:40 Gram Stain - Final Leg - Right Wound Culture - Final Gram Neg Bacilli Assessment and Plan Assessment: Acute septic shock, present on admission, secondary to cellulitis of right lower extremity Cellulitis of right lower extremity and foot, present on admission Hypotension, secondary to sepsis, requiring vasopressors and fluid resuscitation , resolved Chronic atrial fibrillation, maintained on Lopressor and Digoxin outpatient, not on long-term anticoagulation Atrial fibrillation with rapid ventricular rate, on Cardizem drip Acute kidney injury nonoliguric. Possible ATN Acute delirium/ICU psychosis. Currently patient is sedated History of coronary artery disease with previous CABG and mitral valve replacement Previous history of MRSA 2 History of bilateral pneumonia secondary to Haemophilus influenza requiring mechanical ventilation in 2015 Gastroesophageal reflux disease Hyperlipidemia Essential hypertension Osteoarthritis Dementia PLAN: -ICU management per terrazzo layer helper-Continue Cardizem drip and IV fluids. Continue with antibiotics in the form of vancomycin and Zosyn. Follow up blood cultures and urine culture. Follow renal function. Continue with home medications. Ortho recommends no surgical intervention. Replace lites. Monitor sodium level. Pulmonary, cardiology and orthopedics is following. Prognosis is guarded GI and DVT prophylaxis. Time with Patient: Greater than 30
[2017-04-28] MEDS: DEXTROSE 5%-0.9% NACL 1,000 ML IV SCH (23:46)
[2017-04-29] MEDS: PIPERACILLIN-TAZOBACTAM 3.375 GM in DEXTROSE/WATER 1 50ML.BAG IVPB SCH ×3 (00:57→18:11)
[2017-04-29 04:26] LABS: Anion Gap 6 mmol/L; Blood Urea Nitrogen 36 mg/dL (9-20); Calcium 8.1 mg/dL (8.4-10.2); Carbon Dioxide 19 mmol/L (22-30); Chloride 106 mmol/L (98-107); Glucose 127 mg/dL (74-99); Magnesium 1.9 mg/dL (1.6-2.3); Non-African American GFR(MDRD) 50 (>60 ml/min/1.73 sqM); Phosphorus 3.9 mg/dL (2.5-4.5); Potassium 4.4 mmol/L (3.5-5.1); Sodium 131 mmol/L (137-145)
[2017-04-29 04:32] LABS: INR 2.3 (<1.2); Prothrombin Time 21.7 sec (9.0-12.0)
[2017-04-29 04:42] LABS: Basophils % (A) 0 %; CH 27.9; CHCM 31.9; Eosinophils % (A) 0 %; HCT 38.7 % (39.0-53.0); Hypochromasia Slight; Luc # (Auto) 0.24; Luc % (Auto) 3; Lymphocytes # (A) 0.7 k/uL (1.0-4.8); Lymphocytes % (A) 7 %; MCH 27.2 pg (25.0-35.0); MCV 87.8 fL (80.0-100.0); Mean Platelet Volume 7.1; Monocytes # (A) 0.5 k/uL (0-1.0); Monocytes % (A) 5 %; Neutrophils # (A) 8.2 k/uL (1.3-7.7); Neutrophils % (A) 85 %; RBC 4.41 m/uL (4.30-5.90); RDW 15.7 % (11.5-15.5); WBC 9.7 k/uL (3.8-10.6); WBC (Perox) 10.02
[2017-04-29] MEDS: HYDROmorphone 1 MG/ML 1 ML SYRINGE IVP PRN ×4 (05:20→22:14)
--- NOTE | 2017-04-29 06:36 | XR ---
EXAMINATION TYPE: XR chest 1V DATE OF EXAM: 04/29/2017 HISTORY: increased o2 demands. REFERENCE: Previous study dated 04/28/2017. FINDINGS: There has been a midline sternotomy. The heart is enlarged. There is improved aeration at the right lung base. There is no pleural effusio n. IMPRESSION: 1. CARDIOMEGALY. 2. IMPROVED AERATION, RIGHT LUNG BASE.
[2017-04-29] MEDS: LORazepam 2 MG/ML INJ IV PRN (06:46)
[2017-04-29 07:33] LABS: Glucose,Whole Blood 145 mg/dL (75-99)
[2017-04-29] MEDS: PANTOPRAZOLE 40 MG TABLET PO SCH (08:13)
[2017-04-29] MEDS: QUEtiapine 25 MG TAB PO SCH ×2 (08:13→21:14)
[2017-04-29] MEDS: METOPROLOL TARTRATE 50 MG TAB PO SCH ×2 (08:13→21:14)
[2017-04-29] MEDS: DEXTROSE 5%-0.9% NACL 1,000 ML IV SCH ×2 (08:14→18:12)
[2017-04-29] MEDS: INSULIN ASPART 100 UNIT/ML 1 ML 10 ML VIAL SQ SCH ×4 (09:24→21:20)
--- NOTE | 2017-04-29 11:25 | P.PN ---
Subjective Progress Note Date: 04/29/17 Principal diagnosis: Acute septic shock and cellulitis of the right lower extremity. This is a 72-year-old white male with history of multiple medical problems including osteoarthritis, hypertension, coronary artery disease and previous CABG, chronic atrial fibrillation, previous mitral valve replacement, history of dementia, patient presented to the ER yesterday with a few weeks history of right leg pain, redness, and swelling. The patient himself is a very poor historian, and he is very hard of hearing. Patient denies any trauma to the right lower extremity. Pain has been getting more severe and throbbing without radiation involving mostly the right lower extremity below the knee extending to the foot and toes. Patient denied any fever , however he had a temp of 102 on presentation. Patient was also noted noted to be hypotensive in the ER, required 4 L of fluid boluses and required placement on norepinephrine for few hours. His norepinephrine was discontinued 6 hours prior to my evaluation. His blood pressures seems to be relatively stable at this point. Patient was also on Cardizem and he remains on Cardizem at 5 mg per hour for atrial fibrillation and RVR. X-rays and CT of the right leg failed to show necrotizing fasciitis, they all showed mostly swelling of the soft tissue, and no evidence of abscess to drain. Considering the presentation of severe cellulitis involving the right lower extremity, and considering the hypotension requiring fluid boluses and norepinephrine, patient was admitted to the ICU and this consult was initiated. Patient is now on vancomycin and Zosyn, blood cultures are pending. Presently, the patient denies any headache, no blurred vision, no dizziness, denies any chest pain, no shortness of breath, no nausea no vomiting no abdominal pain. Patient is very hard of hearing, complaining of mostly severe pain of the right leg and the right foot, normally takes [place] at home for his pain control. On 04/27/2017, patient remains on antibiotics for his right lower extremity cellulitis and septic shock. Off norepinephrine, urine output is reasonable, patient is hemodynamically stable, cultures from the wound in the right lower extremity is positive for gram-negative bacilli. Blood cultures are pending. So far negative. WBC count is 14.0 hemoglobin is 11.8 electrolytes showed slightly low sodium of 129. Renal profile is improved with BUN of 52 creatinine is 1.11. Patient is not in any form of respiratory distress. On 04/28/2017, patient remains in the ICU, hemodynamically stable, however the patient has been experiencing intermittent episodes of agitation and hallucinations. Requiring multiple doses of Ativan last night, today I recommended starting the patient on Seroquel. A bit reluctant to start Haldol at this point yet. Patient continues to have significant cellulitis of the right lower extremity, he also seems to be developing significant amount of ecchymosis in lower abdomen, and there is some mottling noted in the left lower extremity as well as upper portion of the right upper extremity. Hence I have recommended stopping heparin, patient was already started on Coumadin yesterday. Platelets are a bit on the low side, patient had a previous bioprosthetic valve. His extreme agitation overnight seems to respond well to Ativan, and hopefully will do better with Seroquel. Patient remains on antibiotics as per infectious disease, his wound culture came back positive for gram-negative bacilli, blood cultures are negative, final sensitivity on the wound culture is pending. On 04/29/2017, patient remains in the ICU, hemodynamically stable, continues to have intermittent episodes of confusion said agitations as well as hallucinations. Last night patient was given Ativan, and for some reason he was not given his Seroquel dose which I ordered. Cultures were reviewed, and those are being addressed by infectious disease on the case. Labs were reviewed relatively normal CBC noted. INR is 2.3 electrolytes are relatively normal except for sodium of 131 BUN is 36 creatinine is 1.40. Wound culture is showing gram-negative bacilli, final at the education is pending. Objective - Vital Signs Vital signs: Vital Signs Temp 98.8 F 04/29/17 08:00 Pulse 85 04/29/17 10:00 Resp 18 04/29/17 10:00 BP 90/58 04/29/17 10:00 Pulse Ox 100 04/29/17 10:00 Intake & Output 04/28/17 04/29/17 04/29/17 18:59 06:59 18:59 Intake Total 2470 1635.0 480 Output Total 505 525 340 Balance 1965 1110.0 140 Weight 91.1 kg 91.1 kg Intake: IV 1570 185.0 80 Piperacillin-Tazobactam 3 100 75.0 50 .375 gm In Dextrose/Water 1 50ml.bag @ 12.5 mls/hr IVPB Q8HR JADON Rx#: [id number] Sodium Chloride 0.9% 1, 1470 110 30 000 ml @ 100 mls/hr IV . Q10H JADON Rx#:[id number] Intake, IV Titration 900 1450 400 Amount Dextrose 5%-0.45% NaCl 1, 700 500 000 ml @ 100 mls/hr IV . Q10H JADON Rx#:[id number] Dextrose 5%-0.9% NaCl 1, 700 400 000 ml @ 100 mls/hr IV . Q10H JADON Rx#:[id number] Magnesium Sulfate-D5w Pmx 200 1 gm In Dextrose/Water 1 100ml.bag @ 100 mls/hr IVPB Q1H JADON Rx#: [id number] Vancomycin 1,250 mg In 250 Sodium Chloride 0.9% 250 ml @ 125 mls/hr IVPB Q16H JADON Rx#:[id number] Output: Urine 505 525 340 Other: Voiding Method Indwelling Catheter Indwelling Catheter Indwelling Catheter - Exam General appearance: Revealed a 72-year-old white male, in no distress, patient is hard of hearing, patient remains confused today and seems to be hallucinating. I believe the patient is developing what seems to be a picture of ICU psychosis. Head exam: Normocephalic, atraumatic. Looks slightly pale. Eye exam: PERRLA, EOMI, no icterus, pale and dry mucous membranes noted. ENT exam: Pale and dry mucous membranes, otherwise nasal mucosa and oral mucosa is normal. Throat is clear. Neck exam: Short neck, obese, supple, no masses, no JVD, no stridor. Respiratory exam: Clear, diminished at the bases, no rhonchi and no wheezes. No chest wall tenderness. Cardiovascular Exam: Regular rhythm, no S3 gallop, 2/6 systolic murmur throughout the precordium. GI/Abdominal exam: Soft nontender no megaly no rebound no guarding. Areas of ecchymosis noted in the abdominal wall at the site of heparin injections. Extremities exam: Diffuse swelling and erythema of the right foot and the right leg all the way up to the knee, and some erythematous changes noted in the right thigh area. Moderate to severe diffuse tenderness. There is erythema from the foot to the knee region with streaking towards the groin. There are some stage I/2 skin ulcers. There is some purplish discoloration of toes and fingers bilaterally. . Pulses diminished throughout.) Overall findings seem to be slightly improved. But about the same. Back exam: Unremarkable. Neurological exam: Hard of hearing, otherwise no focal neurologic deficit. Psychiatric exam: Blunted affect, positive psychosis and hallucinations. Skin: Erythema as noted involving the right leg. As noted above. - Labs CBC & Chem 7: 04/29/17 03:54 04/29/17 03:54 Labs: Abnormal Lab Results - Last 24 Hours (Table) 04/28/17 04/28/17 04/28/17 Range/Units 12:29 17:32 20:54 Hgb (13.0-17.5) gm/dL Hct (39.0-53.0) % RDW (11.5-15.5) % Plt Count (150-450) k/uL Neutrophils # (1.3-7.7) k/uL Lymphocytes # (1.0-4.8) k/uL PT (9.0-12.0) sec INR (<1.2) Sodium (137-145) mmol/L Carbon Dioxide (22-30) mmol/L BUN (9-20) mg/dL Creatinine (0.66-1.25) mg/dL Glucose (74-99) mg/dL POC Glucose (mg/dL) 160 H 177 H 182 H (75-99) mg/dL Calcium (8.4-10.2) mg/dL 04/29/17 04/29/17 04/29/17 Range/Units 03:54 03:54 03:54 Hgb 12.0 L (13.0-17.5) gm/dL Hct 38.7 L (39.0-53.0) % RDW 15.7 H (11.5-15.5) % Plt Count 90 L (150-450) k/uL Neutrophils # 8.2 H (1.3-7.7) k/uL Lymphocytes # 0.7 L (1.0-4.8) k/uL PT 21.7 H (9.0-12.0) sec INR 2.3 H (<1.2) Sodium 131 L (137-145) mmol/L Carbon Dioxide 19 L (22-30) mmol/L BUN 36 H (9-20) mg/dL Creatinine 1.40 H (0.66-1.25) mg/dL Glucose 127 H (74-99) mg/dL POC Glucose (mg/dL) (75-99) mg/dL Calcium 8.1 L (8.4-10.2) mg/dL 04/29/17 Range/Units 07:30 Hgb (13.0-17.5) gm/dL Hct (39.0-53.0) % RDW (11.5-15.5) % Plt Count (150-450) k/uL Neutrophils # (1.3-7.7) k/uL Lymphocytes # (1.0-4.8) k/uL PT (9.0-12.0) sec INR (<1.2) Sodium (137-145) mmol/L Carbon Dioxide (22-30) mmol/L BUN (9-20) mg/dL Creatinine (0.66-1.25) mg/dL Glucose (74-99) mg/dL POC Glucose (mg/dL) 145 H (75-99) mg/dL Calcium (8.4-10.2) mg/dL Microbiology - Last 24 Hours (Table) 04/25/17 17:44 Blood Culture - Preliminary Blood No Growth after 72 hours 04/25/17 14:40 Blood Culture - Preliminary Blood No Growth after 72 hours 04/25/17 14:40 Gram Stain - Final Leg - Right Wound Culture - Final Gram Neg Bacilli Assessment and Plan Assessment: Impression: 1 acute septic shock from cellulitis of the right lower extremity and right foot. Hence the patient will be kept on broad-spectrum antibiotics for now including vancomycin and Zosyn. Patient was treated as per the septic shock protocol, multiple fluid boluses were given up to 4 L, required norepinephrine for few hours, presently off norepinephrine, and remains on IV fluid at 100 mL per hour. Patient is also on GI and DVT prophylaxis, and he is on Coumadin, and heparin was discontinued. 2 chronic atrial fibrillation, patient is presently on Cardizem drip for A. fib with RVR. Being addressed by cardiology. 3 acute ICU psychosis, patient is presently on Ativan, Seroquel was added, may have to consider Haldol or Precedex. 3 history of multiple comorbidities including hypertension, hyperlipidemia, osteoarthritis, previous CABG, history of mitral valve replacement, history of dementia, hard of hearing, history of respiratory failure secondary to bilateral pneumonia secondary to Haemophilus influenza back in 2015. Recommendation: Continue present treatment plan including antibiotics, antiarrhythmic agents/Cardizem, Coumadin, adjust antibiotics based on the final culture, however vancomycin and Zosyn seems to be very appropriate for now. Patient will be monitored in the ICU for the next 24 hours, and if he remains hemodynamically stable, will transfer to a monitored bed on selective. Time with Patient: Less than 30
[2017-04-29 11:43] LABS: Glucose,Whole Blood 157 mg/dL (75-99)
--- NOTE | 2017-04-29 13:20 | PN ---
PROGRESS NOTE Mr. Carbajal is a patient with a cellulitis, history of mitral valve replacement. He is still agitated. He has a lot of mental status changes, but he does not have any chest pain or shortness of breath at this time. His atrial fib rate is controlled. He is hemodynamically. Stable S1, S2 heard normally with a regular rate and rhythm. Short systolic murmur. Lungs reveal improved entry. Abdomen and lower extremity exam is unchanged. Overall prognosis is fair. Plan for now is to continue current medications and I will await input from Neurology. MMODL / IJN: [id number] /
--- NOTE | 2017-04-29 14:02 | PN ---
PROGRESS NOTE DATE OF SERVICE: 04/29/2017 REASON FOR FOLLOWUP: Right foot cellulitis. INTERVAL HISTORY: The patient is afebrile. He is currently on a BiPAP. Apparently the patient has been agitated and has received multiple doses of Ativan. No hemodynamic instability. No nausea, vomiting, diarrhea per the RN. EXAMINATION: Blood pressure is 143/85 with a pulse of 51, temperature 98.2. He is 100% on 40 % BiPAP. General description is an elderly male lying in bed in no distress. RESPIRATORY SYSTEM: Unlabored breathing. Clear to auscultation anteriorly. HEART: S1, S2. Regular rate and rhythm. ABDOMEN: Soft, no tenderness. Right leg swelling redness slightly improved. LABS: Hemoglobin is 12, white count 9.7, BUN of 36, creatinine 1.40. Gram-negative has not been identified yet. Blood culture so far negative. DIAGNOSTIC IMPRESSION AND PLAN: Patient with hospital with extensive right lower extremity cellulitis with wound culture showing gram-negative. Still waiting for the ID of this gram-negative. Currently on vancomycin and Zosyn. If no Gram positive Vanco will be discontinued. Continue supportive care. MMODL / IJN: [id number] / MTDD
[2017-04-29] MEDS: VANCOMYCIN 1,250 MG in SODIUM CHLORIDE 0.9% 250 ML IVPB SCH (15:41)
[2017-04-29] MEDS: DILTIAZEM 125 MG in SODIUM CHLORIDE 0.9% 100 ML IV SCH (17:12)
[2017-04-29] MEDS ORDERED: WARFARIN 1 MG TAB PO ONE (18:00)
[2017-04-29 21:14] LABS: Glucose,Whole Blood 139 mg/dL (75-99)
--- NOTE | 2017-04-29 22:43 | P.PN ---
Subjective Progress Note Date: 04/29/17 Principal diagnosis: Septic shock 72-year-old male who presented to the emergency room on 04/25/2017 with a chief complaint of right leg pain. Apparently, the patient was experiencing severe right leg pains the night before he presented to the hospital and he decided to lay down on the floor and he laid there the entire day until he was brought by EMS to the hospital. The patient has a history of chronic wounds to his right leg. At his last visit to his PCP, it was noted that there were no open lesions. The patient also has a history of atrial fibrillation, GERD, hyperlipidemia, hypertension, CABG with mitral valve replacement, dementia, and benign prostatic hyperplasia. The patient was hospitalized in 2014 for bilateral pneumonia that required mechanical ventilation secondary to Haemophilus influenza. According to Dr. 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 In the emergency room, multiple xrays were completed. A right femur x-ray shows mild right hip osteonecrosis. X-ray of the tibia and fibula show small nonspecific knee joint effusion, no acute osseous abnormality, and soft tissue swelling greater towards the ankle. A foot x-ray was completed which shows marked dorsal soft tissue swelling but did not reveal acute osseous abnormalities. The patient was found to be in atrial fibrillation with rapid ventricular rate in the 150s. He was started on a Cardizem drip. He was also hypotensive with a systolic blood pressure in the 70s to 80s. He required multiple fluid boluses and was also started on vasopressors. His temperature was noted to be 101.4. White count on admission was 19.6. Hemoglobin 13.1. His sodium was low at 126. Potassium was slightly elevated at 5.2. BUN/ creatinine were also elevated. BUN was 44 and creatinine 1.4. Lactic acid was significantly elevated at 4.7. Troponin was 0.232. He was started on Zosyn and vancomycin. He was admitted to the intensive care unit under the care of Dr. Mireles. Consults were placed to hair dresser, Dr. García. Consults were also placed to infectious disease, cardiology, and orthopedics. On 04/27/2017 Patient is off pressor support. Currently on vancomycin and Zosyn. Off Cardizem drip as well heart rate is better controlled. Wound culture showed gram-negative bacilli Blood cultures showed no growth so far area leukocytosis improved to 14.0. Sodium level found to be 129 creatinine 1.11 currently patient is awake and oriented and mental status much improved. Patient does have underlying hearing difficulty. On 04/28/2017 Patient was agitated and was hallucinating this morning. And also overnight. Patient was given IV Ativan. Currently patient is lying comfortably. Otherwise his sodium level improved to 130 today. Will continue IV fluids in the form of normal saline. Patient is still having significant lower extremity right-sided swelling and redness and to stage II ulcers. Leukocytosis improved to 13.0. Otherwise his renal function worsened with creatinine level increased from 1.1-1.3. Wound cultures so is showing gram-negative bacilli. No fever no chills. Blood cultures and urine cultures are still pending. 04/29/2017 Patient is currently on BiPAP. Patient did have apneic episodes in the morning today. Patient was given Ativan dose last night which has been discontinued now. Continued on Seroquel. Otherwise wound cultures showed gram-negative bacilli. ID and pulmonary is following. Otherwise patient is hemodynamically stable. Patient is a poor historian complete review of systems could not be obtained. Current medications reviewed. Objective - Vital Signs Vital signs: Vital Signs Temp 97.7 F 04/29/17 16:00 Pulse 69 04/29/17 19:00 Resp 25 H 04/29/17 19:00 BP 120/88 04/29/17 19:00 Pulse Ox 100 04/29/17 19:00 Intake & Output 04/29/17 04/29/17 04/30/17 06:59 18:59 06:59 Intake Total 1635.0 1280 Output Total 525 835 Balance 1110.0 445 Weight 91.1 kg 91.1 kg Intake: IV 185.0 80 Piperacillin-Tazobactam 3 75.0 50 .375 gm In Dextrose/Water 1 50ml.bag @ 12.5 mls/hr IVPB Q8HR J[facility]ON Rx#: [id number] Sodium Chloride 0.9% 1, 110 30 000 ml @ 100 mls/hr IV . Q10H JADON Rx#:[id number] Intake, IV Titration 1450 1200 Amount Dextrose 5%-0.45% NaCl 1, 500 000 ml @ 100 mls/hr IV . Q10H JADON Rx#:[id number] Dextrose 5%-0.9% NaCl 1, 700 1200 000 ml @ 100 mls/hr IV . Q10H JADON Rx#:[id number] Vancomycin 1,250 mg In 250 Sodium Chloride 0.9% 250 ml @ 125 mls/hr IVPB Q16H JADON Rx#:[id number] Output: Urine 525 835 Other: Voiding Method Indwelling Catheter Indwelling Catheter - Exam PHYSICAL EXAMINATION: Patient is lying in the bed comfortably, no acute distress, awake alert and oriented.. Patient is hard of hearing HEENT: Normocephalic. Neck is supple. Pupils reactive. Nostrils clear. Oral cavity is moist. Ears reveal no drainage. Neck reveals no JVD, carotid bruits, or thyromegaly. CHEST EXAMINATION: Trachea is central. Symmetrical expansion. Lung bains clear to auscultation and percussion. CARDIAC: Normal S1, S2 with no gallops. Systolic murmur ABDOMEN: Soft. Bowel sounds normal. No organomegaly. No abdominal bruits. Extremities: Right lower activity swelling and erythema up to the knee and streaking towards groin area. Slight discoloration of toes. Warm to touch and tender to palpation Neurologically awake, alert, oriented x3 with well-coordinated movements. No focal deficits noted Skin: No rash or skin lesions except above. Psychiatric: Cooperative. Nonsuicidal Musculoskeletal: No joint swelling or deformity. Normal range of motion. - Labs CBC & Chem 7: 04/29/17 03:54 04/29/17 03:54 Labs: Abnormal Lab Results - Last 24 Hours (Table) 04/29/17 04/29/17 04/29/17 Range/Units 03:54 03:54 03:54 Hgb 12.0 L (13.0-17.5) gm/dL Hct 38.7 L (39.0-53.0) % RDW 15.7 H (11.5-15.5) % Plt Count 90 L (150-450) k/uL Neutrophils # 8.2 H (1.3-7.7) k/uL Lymphocytes # 0.7 L (1.0-4.8) k/uL PT 21.7 H (9.0-12.0) sec INR 2.3 H (<1.2) Sodium 131 L (137-145) mmol/L Carbon Dioxide 19 L (22-30) mmol/L BUN 36 H (9-20) mg/dL Creatinine 1.40 H (0.66-1.25) mg/dL Glucose 127 H (74-99) mg/dL POC Glucose (mg/dL) (75-99) mg/dL Calcium 8.1 L (8.4-10.2) mg/dL 04/29/17 04/29/17 Range/Units 07:30 11:42 Hgb (13.0-17.5) gm/dL Hct (39.0-53.0) % RDW (11.5-15.5) % Plt Count (150-450) k/uL Neutrophils # (1.3-7.7) k/uL Lymphocytes # (1.0-4.8) k/uL PT (9.0-12.0) sec INR (<1.2) Sodium (137-145) mmol/L Carbon Dioxide (22-30) mmol/L BUN (9-20) mg/dL Creatinine (0.66-1.25) mg/dL Glucose (74-99) mg/dL POC Glucose (mg/dL) 145 H 157 H (75-99) mg/dL Calcium (8.4-10.2) mg/dL Microbiology - Last 24 Hours (Table) 04/25/17 17:44 Blood Culture - Preliminary Blood No Growth after 96 hours 04/25/17 14:40 Blood Culture - Preliminary Blood No Growth after 96 hours Assessment and Plan Assessment: Acute septic shock, present on admission, secondary to cellulitis of right lower extremity Cellulitis of right lower extremity and foot, present on admission Hypotension, secondary to sepsis, requiring vasopressors and fluid resuscitation , resolved Chronic atrial fibrillation, maintained on Lopressor and Digoxin outpatient, not on long-term anticoagulation Atrial fibrillation with rapid ventricular rate, on Cardizem drip Acute kidney injury nonoliguric. Possible ATN Acute delirium/ICU psychosis. Currently patient is sedated History of coronary artery disease with previous CABG and mitral valve replacement Previous history of MRSA 2 History of bilateral pneumonia secondary to Haemophilus influenza requiring mechanical ventilation in 2015 Gastroesophageal reflux disease Hyperlipidemia Essential hypertension Osteoarthritis Dementia PLAN: -ICU management per hair dresser-Continue Cardizem drip and IV fluids. Continue with antibiotics in the form of vancomycin and Zosyn. Follow up blood cultures and urine culture. Wound culture showed gram-negative bacilli. Follow renal function. Continue with home medications. Ortho recommends no surgical intervention. Replace lites. Monitor sodium level. Pulmonary, cardiology and orthopedics is following. Prognosis is guarded GI and DVT prophylaxis.
[2017-04-30] MEDS: PIPERACILLIN-TAZOBACTAM 3.375 GM in DEXTROSE/WATER 1 50ML.BAG IVPB SCH ×3 (00:38→16:25)
[2017-04-30] MEDS: HYDROmorphone 1 MG/ML 1 ML SYRINGE IVP PRN ×6 (03:42→21:36)
[2017-04-30] MEDS: DEXTROSE 5%-0.9% NACL 1,000 ML IV SCH ×2 (03:43→14:58)
[2017-04-30 04:35] LABS: Anisocytosis Slight; Basophils % (A) 0 %; CH 27.7; CHCM 32.1; Eosinophils % (A) 0 %; HCT 36.2 % (39.0-53.0); HDW 2.86; HGB 11.4 gm/dL (13.0-17.5); Luc # (Auto) 0.16; Luc % (Auto) 2; Lymphocytes # (A) 0.8 k/uL (1.0-4.8); Lymphocytes % (A) 11 %; MCH 27.2 pg (25.0-35.0); MCHC 31.5 g/dL (31.0-37.0); MCV 86.4 fL (80.0-100.0); Monocytes # (A) 0.5 k/uL (0-1.0); Monocytes % (A) 6 %; Neutrophils # (A) 6.4 k/uL (1.3-7.7); Neutrophils % (A) 81 %; RBC 4.19 m/uL (4.30-5.90); RDW 17.5 % (11.5-15.5); WBC 7.9 k/uL (3.8-10.6); WBC (Perox) 8.52
[2017-04-30 04:41] LABS: INR 4.6 (<1.2); Prothrombin Time 45.9 sec (9.0-12.0)
[2017-04-30 04:51] LABS: Anion Gap 4 mmol/L; Blood Urea Nitrogen 31 mg/dL (9-20); Calcium 8.1 mg/dL (8.4-10.2); Carbon Dioxide 18 mmol/L (22-30); Chloride 112 mmol/L (98-107); Glucose 123 mg/dL (74-99); Magnesium 1.7 mg/dL (1.6-2.3); Non-African American GFR(MDRD) 60 (>60 ml/min/1.73 sqM); Phosphorus 3.5 mg/dL (2.5-4.5); Potassium 3.9 mmol/L (3.5-5.1); Sodium 134 mmol/L (137-145)
[2017-04-30] MEDS: VANCOMYCIN 1,250 MG in SODIUM CHLORIDE 0.9% 250 ML IVPB SCH ×2 (05:06→20:39)
[2017-04-30] MEDS ORDERED: Potassium Replacement Protocol 1 EACH MISC MISCELLANE PRN (05:20)
[2017-04-30] MEDS: MAGNESIUM SULFATE-D5W PMX 1 GM in DEXTROSE/WATER 1 100ML.BAG IVPB SCH ×2 (05:47→06:51)
[2017-04-30] MEDS ORDERED: POTASSIUM CHLORIDE ER 20 MEQ TAB.ER PO SCH (06:00)
--- NOTE | 2017-04-30 06:33 | XR ---
EXAMINATION TYPE: XR chest 1V DATE OF EXAM: 04/30/2017 HISTORY: increased o2 demands. REFERENCE: Previous study dated 04/29/2017. FINDINGS: There has been a midline sternotomy. The heart is enlarged. There is improved aeration of both lungs. Pleural spaces are clear. IMPRESSION: 1. CARDIOMEGALY. 2. IMPROVED AERATION, BOTH LUNGS.
[2017-04-30] MEDS: PANTOPRAZOLE 40 MG TABLET PO SCH (08:03)
[2017-04-30] MEDS: QUEtiapine 25 MG TAB PO SCH ×2 (08:03→20:40)
[2017-04-30] MEDS: METOPROLOL TARTRATE 50 MG TAB PO SCH (08:04)
[2017-04-30] MEDS: INSULIN ASPART 100 UNIT/ML 1 ML 10 ML VIAL SQ SCH ×4 (08:20→21:37)
--- NOTE | 2017-04-30 11:30 | P.PN ---
Subjective Progress Note Date: 04/30/17 Principal diagnosis: Acute septic shock and cellulitis of the right lower extremity. This is a 72-year-old white male with history of multiple medical problems including osteoarthritis, hypertension, coronary artery disease and previous CABG, chronic atrial fibrillation, previous mitral valve replacement, history of dementia, patient presented to the ER yesterday with a few weeks history of right leg pain, redness, and swelling. The patient himself is a very poor historian, and he is very hard of hearing. Patient denies any trauma to the right lower extremity. Pain has been getting more severe and throbbing without radiation involving mostly the right lower extremity below the knee extending to the foot and toes. Patient denied any fever , however he had a temp of 102 on presentation. Patient was also noted noted to be hypotensive in the ER, required 4 L of fluid boluses and required placement on norepinephrine for few hours. His norepinephrine was discontinued 6 hours prior to my evaluation. His blood pressures seems to be relatively stable at this point. Patient was also on Cardizem and he remains on Cardizem at 5 mg per hour for atrial fibrillation and RVR. X-rays and CT of the right leg failed to show necrotizing fasciitis, they all showed mostly swelling of the soft tissue, and no evidence of abscess to drain. Considering the presentation of severe cellulitis involving the right lower extremity, and considering the hypotension requiring fluid boluses and norepinephrine, patient was admitted to the ICU and this consult was initiated. Patient is now on vancomycin and Zosyn, blood cultures are pending. Presently, the patient denies any headache, no blurred vision, no dizziness, denies any chest pain, no shortness of breath, no nausea no vomiting no abdominal pain. Patient is very hard of hearing, complaining of mostly severe pain of the right leg and the right foot, normally takes Bath at home for his pain control. On 04/27/2017, patient remains on antibiotics for his right lower extremity cellulitis and septic shock. Off norepinephrine, urine output is reasonable, patient is hemodynamically stable, cultures from the wound in the right lower extremity is positive for gram-negative bacilli. Blood cultures are pending. So far negative. WBC count is 14.0 hemoglobin is 11.8 electrolytes showed slightly low sodium of 129. Renal profile is improved with BUN of 52 creatinine is 1.11. Patient is not in any form of respiratory distress. On 04/28/2017, patient remains in the ICU, hemodynamically stable, however the patient has been experiencing intermittent episodes of agitation and hallucinations. Requiring multiple doses of Ativan last night, today I recommended starting the patient on Seroquel. A bit reluctant to start Haldol at this point yet. Patient continues to have significant cellulitis of the right lower extremity, he also seems to be developing significant amount of ecchymosis in lower abdomen, and there is some mottling noted in the left lower extremity as well as upper portion of the right upper extremity. Hence I have recommended stopping heparin, patient was already started on Coumadin yesterday. Platelets are a bit on the low side, patient had a previous bioprosthetic valve. His extreme agitation overnight seems to respond well to Ativan, and hopefully will do better with Seroquel. Patient remains on antibiotics as per infectious disease, his wound culture came back positive for gram-negative bacilli, blood cultures are negative, final sensitivity on the wound culture is pending. On 04/29/2017, patient remains in the ICU, hemodynamically stable, continues to have intermittent episodes of confusion said agitations as well as hallucinations. Last night patient was given Ativan, and for some reason he was not given his Seroquel dose which I ordered. Cultures were reviewed, and those are being addressed by infectious disease on the case. Labs were reviewed relatively normal CBC noted. INR is 2.3 electrolytes are relatively normal except for sodium of 131 BUN is 36 creatinine is 1.40. Wound culture is showing gram-negative bacilli, final at the education is pending. On 04/30/2017, patient remains in the ICU, however I plan to transfer the patient out of the ICU today. He remains hemodynamically stable, remains on the same antibiotics, his cellulitis in the right lower extremity seems to be improving, and the areas of erythema seems to be receding. The swelling seems to be improved and the tenderness is also improved. Clearly the patient is responding well to treatment. He is also doing well with the Seroquel as far as his mental status is concerned, overnight he was placed on BiPAP because of episodes of stop breathing and symptoms of obstructive sleep apnea syndrome with snoring. Tolerated the BiPAP of 12 and 4 quite well, and I plan to keep him on BiPAP while inpatient. Mental status seems to be also improving. CBC is relatively normal. No evidence of leukocytosis. INR is 4.6, hence Coumadin is presently on hold. Renal profile is improving creatinine is 1.0 today. Overall, I believe the patient is making a steady improvement. Hence I plan to transfer out of the ICU today. Objective - Vital Signs Vital signs: Vital Signs Temp 98.3 F 04/30/17 08:00 Pulse 64 04/30/17 10:00 Resp 12 04/30/17 10:00 BP 104/72 04/30/17 10:00 Pulse Ox 100 04/30/17 10:00 Intake & Output 04/29/17 04/30/17 04/30/17 18:59 06:59 18:59 Intake Total 1280 1575.0 575 Output Total 835 900 220 Balance 445 675.0 355 Weight 91.1 kg 98.1 kg Intake: IV 80 1425.0 575 Dextrose 5%-0.9% NaCl 1, 1100 300 000 ml @ 100 mls/hr IV . Q10H JADON Rx#:[id number] Magnesium Sulfate-D5w Pmx 100 100 1 gm In Dextrose/Water 1 100ml.bag @ 100 mls/hr IVPB Q1H JADON Rx#: [id number] Piperacillin-Tazobactam 3 50 100.0 50 .375 gm In Dextrose/Water 1 50ml.bag @ 12.5 mls/hr IVPB Q8HR JADON Rx#: [id number] Sodium Chloride 0.9% 1, 30 000 ml @ 100 mls/hr IV . Q10H JADON Rx#:[id number] Vancomycin 1,250 mg In 125 125 Sodium Chloride 0.9% 250 ml @ 125 mls/hr IVPB Q16H JADON Rx#:[id number] Intake, IV Titration 1200 Amount Dextrose 5%-0.9% NaCl 1, 1200 000 ml @ 100 mls/hr IV . Q10H JADON Rx#:[id number] Oral 150 Output: Urine 835 900 220 Other: Voiding Method Indwelling Catheter Indwelling Catheter Indwelling Catheter # Bowel Movements 1 - Exam General appearance: Field a 72-year-old white male in no distress. Hard of hearing. Head exam: Normocephalic, atraumatic. Looks slightly pale. Eye exam: PERRLA, EOMI, no icterus, pale and dry mucous membranes noted. ENT exam: Pale and dry mucous membranes, otherwise nasal mucosa and oral mucosa is normal. Throat is clear. Neck exam: Short neck, obese, supple, no masses, no JVD, no stridor. Respiratory exam: Clear, diminished at the bases, no rhonchi and no wheezes. No chest wall tenderness. Cardiovascular Exam: Regular rhythm, no S3 gallop, 2/6 systolic murmur throughout the precordium. GI/Abdominal exam: Soft nontender no megaly no rebound no guarding. Areas of ecchymosis noted in the abdominal wall at the site of heparin injections. Extremities exam: Significant improvement is noted in the swelling and erythema in right lower extremity. Back exam: Unremarkable. Neurological exam: Hard of hearing, otherwise no focal neurologic deficit. Psychiatric exam: Normal mood affect and normal mental status examination today. Skin: Erythema as noted involving the right leg. As noted above. - Labs CBC & Chem 7: 04/30/17 04:03 04/30/17 04:03 Labs: Abnormal Lab Results - Last 24 Hours (Table) 04/29/17 04/29/17 04/30/17 Range/Units 11:42 21:12 04:03 RBC 4.19 L (4.30-5.90) m/uL Hgb 11.4 L (13.0-17.5) gm/dL Hct 36.2 L (39.0-53.0) % RDW 17.5 H (11.5-15.5) % Plt Count 87 L (150-450) k/uL Lymphocytes # 0.8 L (1.0-4.8) k/uL PT (9.0-12.0) sec INR (<1.2) Sodium (137-145) mmol/L Chloride (98-107) mmol/L Carbon Dioxide (22-30) mmol/L BUN (9-20) mg/dL Glucose (74-99) mg/dL POC Glucose (mg/dL) 157 H 139 H (75-99) mg/dL Calcium (8.4-10.2) mg/dL 04/30/17 04/30/17 Range/Units 04:03 04:03 RBC (4.30-5.90) m/uL Hgb (13.0-17.5) gm/dL Hct (39.0-53.0) % RDW (11.5-15.5) % Plt Count (150-450) k/uL Lymphocytes # (1.0-4.8) k/uL PT 45.9 H (9.0-12.0) sec INR 4.6 H (<1.2) Sodium 134 L (137-145) mmol/L Chloride 112 H (98-107) mmol/L Carbon Dioxide 18 L (22-30) mmol/L BUN 31 H (9-20) mg/dL Glucose 123 H (74-99) mg/dL POC Glucose (mg/dL) (75-99) mg/dL Calcium 8.1 L (8.4-10.2) mg/dL Microbiology - Last 24 Hours (Table) 04/25/17 17:44 Blood Culture - Preliminary Blood No Growth after 96 hours 04/25/17 14:40 Blood Culture - Preliminary Blood No Growth after 96 hours Assessment and Plan Assessment: Impression: 1 acute septic shock from cellulitis of the right lower extremity and right foot. Hence the patient will be kept on broad-spectrum antibiotics for now including vancomycin and Zosyn. Patient demonstrated significant improvement while on antibiotics, IV fluids were given initially, was on a short course of pressors, and he was also placed on BiPAP for what seems to be obstructive sleep apnea syndrome. His agitation responded well to Seroquel. 2 chronic atrial fibrillation, improved. Presently on Lopressor at 25 mg by mouth 3 times a day. 3 acute ICU psychosis, patient is presently on Ativan, Seroquel was added, may have to consider Haldol or Precedex. 3 history of multiple comorbidities including hypertension, hyperlipidemia, osteoarthritis, previous CABG, history of mitral valve replacement, history of dementia, hard of hearing, history of respiratory failure secondary to bilateral pneumonia secondary to Haemophilus influenza back in 2014. Recommendation: Continue present treatment plan including antibiotics, metoprolol and Coumadin, vancomycin and Zosyn seems to be very appropriate for now. Patient will be transferred out of the ICU today, and we'll continue to follow. Time with Patient: Less than 30
--- NOTE | 2017-04-30 12:29 | PN ---
PROGRESS NOTE Mr. Carbajal is here with cellulitis of lower extremities, septic shock, and also atrial fibrillation. His sepsis seems to be improved. His mentation is actually much better than yesterday. He is hemodynamically stable. His ventricular rate somewhat however a little bit faster. I am decreasing Lopressor from 50 mg b.i.d. to 25 mg t.i.d., holding for heart rate of less than 70. His PT/INR is high, we will therefore hold the Coumadin. Blood pressure today is 130/70, pulse is about 80 per minute. JVD 1 cm. No carotid bruit. S1, S2 with irregular rhythm. Short systolic murmur noted. Lungs reveal improved air entry. Abdomen exam is unchanged. Lower extremities have cellulitis changes which are also unchanged. MMODL / IJN: [id number] /
[2017-04-30 13:10] LABS: Glucose,Whole Blood 136 mg/dL (75-99)
[2017-04-30] MEDS: METOPROLOL TARTRATE 25 MG TAB PO SCH ×2 (16:25→20:40)
[2017-04-30] MEDS: COLLAGENASE 250 UNIT/GM OINTMENT 30 GM TUBE TOPICAL SCH (18:15)
[2017-04-30 18:25] LABS: Glucose,Whole Blood 218 mg/dL (75-99)
[2017-04-30 21:26] LABS: Glucose,Whole Blood 160 mg/dL (75-99)
--- NOTE | 2017-04-30 21:44 | P.PN ---
Subjective Progress Note Date: 04/30/17 Principal diagnosis: Septic shock 72-year-old male who presented to the emergency room on 04/25/2017 with a chief complaint of right leg pain. Apparently, the patient was experiencing severe right leg pains the night before he presented to the hospital and he decided to lay down on the floor and he laid there the entire day until he was brought by EMS to the hospital. The patient has a history of chronic wounds to his right leg. At his last visit to his PCP, it was noted that there were no open lesions. The patient also has a history of atrial fibrillation, GERD, hyperlipidemia, hypertension, CABG with mitral valve replacement, dementia, and benign prostatic hyperplasia. The patient was hospitalized in 2014 for bilateral pneumonia that required mechanical ventilation secondary to Haemophilus influenza. According to Dr. 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 In the emergency room, multiple xrays were completed. A right femur x-ray shows mild right hip osteonecrosis. X-ray of the tibia and fibula show small nonspecific knee joint effusion, no acute osseous abnormality, and soft tissue swelling greater towards the ankle. A foot x-ray was completed which shows marked dorsal soft tissue swelling but did not reveal acute osseous abnormalities. The patient was found to be in atrial fibrillation with rapid ventricular rate in the 150s. He was started on a Cardizem drip. He was also hypotensive with a systolic blood pressure in the 70s to 80s. He required multiple fluid boluses and was also started on vasopressors. His temperature was noted to be 101.4. White count on admission was 19.6. Hemoglobin 13.1. His sodium was low at 126. Potassium was slightly elevated at 5.2. BUN/ creatinine were also elevated. BUN was 44 and creatinine 1.4. Lactic acid was significantly elevated at 4.7. Troponin was 0.232. He was started on Zosyn and vancomycin. He was admitted to the intensive care unit under the care of Dr. Mireles. Consults were placed to floor waxer, Dr. García. Consults were also placed to infectious disease, cardiology, and orthopedics. On 04/27/2017 Patient is off pressor support. Currently on vancomycin and Zosyn. Off Cardizem drip as well heart rate is better controlled. Wound culture showed gram-negative bacilli Blood cultures showed no growth so far area leukocytosis improved to 14.0. Sodium level found to be 129 creatinine 1.11 currently patient is awake and oriented and mental status much improved. Patient does have underlying hearing difficulty. On 04/28/2017 Patient was agitated and was hallucinating this morning. And also overnight. Patient was given IV Ativan. Currently patient is lying comfortably. Otherwise his sodium level improved to 130 today. Will continue IV fluids in the form of normal saline. Patient is still having significant lower extremity right-sided swelling and redness and to stage II ulcers. Leukocytosis improved to 13.0. Otherwise his renal function worsened with creatinine level increased from 1.1-1.3. Wound cultures so is showing gram-negative bacilli. No fever no chills. Blood cultures and urine cultures are still pending. 04/29/2017 Patient is currently on BiPAP. Patient did have apneic episodes in the morning today. Patient was given Ativan dose last night which has been discontinued now. Continued on Seroquel. Otherwise wound cultures showed gram-negative bacilli. ID and pulmonary is following. Otherwise patient is hemodynamically stable. Patient is a poor historian complete review of systems could not be obtained. 04/30/2017 Patient is more awake and oriented today. Hemodynamically stable. Denied any chest pain or worsening short of breath. Leg swelling and redness seems to be improved slightly. INR 4.6 today. Remains on antibiotics of vancomycin and Zosyn. Patient is being transferred to medical floor today. Current medications reviewed. Objective - Vital Signs Vital signs: Vital Signs Temp 98.2 F 04/30/17 16:00 Pulse 80 04/30/17 16:00 Resp 15 04/30/17 16:00 BP 113/85 04/30/17 16:00 Pulse Ox 100 04/30/17 16:00 Intake & Output 04/30/17 04/30/17 05/01/17 06:59 18:59 06:59 Intake Total 1575.0 925 Output Total 900 540 Balance 675.0 385 Weight 98.1 kg 98.1 kg Intake: IV 1425.0 925 Dextrose 5%-0.9% NaCl 1, 1100 600 000 ml @ 100 mls/hr IV . Q10H [facility] Rx#:[id number] Magnesium Sulfate-D5w Pmx 100 100 1 gm In Dextrose/Water 1 100ml.bag @ 100 mls/hr IVPB Q1H [facility]ON Rx#: [id number] Piperacillin-Tazobactam 3 100.0 100 .375 gm In Dextrose/Water 1 50ml.bag @ 12.5 mls/hr IVPB Q8HR [facility] Rx#: [id number] Vancomycin 1,250 mg In 125 125 Sodium Chloride 0.9% 250 ml @ 125 mls/hr IVPB Q16H [facility] Rx#:[id number] Oral 150 Output: Urine 900 540 Other: Voiding Method Indwelling Catheter Indwelling Catheter # Bowel Movements 1 1 - Exam PHYSICAL EXAMINATION: Patient is lying in the bed comfortably, no acute distress, awake alert and oriented.. Patient is hard of hearing HEENT: Normocephalic. Neck is supple. Pupils reactive. Nostrils clear. Oral cavity is moist. Ears reveal no drainage. Neck reveals no JVD, carotid bruits, or thyromegaly. CHEST EXAMINATION: Trachea is central. Symmetrical expansion. Lung bains clear to auscultation and percussion. CARDIAC: Normal S1, S2 with no gallops. Systolic murmur ABDOMEN: Soft. Bowel sounds normal. No organomegaly. No abdominal bruits. Extremities: Right lower activity swelling and erythema up to the knee and streaking towards groin area. Slight discoloration of toes. Warm to touch and tender to palpation Neurologically awake, alert, oriented x3 with well-coordinated movements. No focal deficits noted Skin: No rash or skin lesions except above. Psychiatric: Cooperative. Nonsuicidal Musculoskeletal: No joint swelling or deformity. Normal range of motion. - Labs CBC & Chem 7: 04/30/17 04:03 04/30/17 04:03 Labs: Abnormal Lab Results - Last 24 Hours (Table) 04/29/17 04/30/17 04/30/17 Range/Units 21:12 04:03 04:03 RBC 4.19 L (4.30-5.90) m/uL Hgb 11.4 L (13.0-17.5) gm/dL Hct 36.2 L (39.0-53.0) % RDW 17.5 H (11.5-15.5) % Plt Count 87 L (150-450) k/uL Lymphocytes # 0.8 L (1.0-4.8) k/uL PT (9.0-12.0) sec INR (<1.2) Sodium 134 L (137-145) mmol/L Chloride 112 H (98-107) mmol/L Carbon Dioxide 18 L (22-30) mmol/L BUN 31 H (9-20) mg/dL Glucose 123 H (74-99) mg/dL POC Glucose (mg/dL) 139 H (75-99) mg/dL Calcium 8.1 L (8.4-10.2) mg/dL 04/30/17 04/30/17 04/30/17 Range/Units 04:03 13:08 18:23 RBC (4.30-5.90) m/uL Hgb (13.0-17.5) gm/dL Hct (39.0-53.0) % RDW (11.5-15.5) % Plt Count (150-450) k/uL Lymphocytes # (1.0-4.8) k/uL PT 45.9 H (9.0-12.0) sec INR 4.6 H (<1.2) Sodium (137-145) mmol/L Chloride (98-107) mmol/L Carbon Dioxide (22-30) mmol/L BUN (9-20) mg/dL Glucose (74-99) mg/dL POC Glucose (mg/dL) 136 H 218 H (75-99) mg/dL Calcium (8.4-10.2) mg/dL Microbiology - Last 24 Hours (Table) 04/25/17 14:40 Blood Culture - Preliminary Blood No Growth after 120 hours 04/25/17 17:44 Blood Culture - Preliminary Blood No Growth after 96 hours Assessment and Plan Assessment: Acute septic shock, present on admission, secondary to cellulitis of right lower extremity Cellulitis of right lower extremity and foot, present on admission. Improving slowly Hypotension, secondary to sepsis, requiring vasopressors and fluid resuscitation , resolved Chronic atrial fibrillation, maintained on Lopressor and Digoxin outpatient, on long-term anticoagulation Atrial fibrillation with rapid ventricular rate, on Cardizem drip Acute kidney injury nonoliguric. Possible ATN Acute delirium/ICU psychosis. Currently patient is sedated History of coronary artery disease with previous CABG and mitral valve replacement Previous history of MRSA 2 History of bilateral pneumonia secondary to Haemophilus influenza requiring mechanical ventilation in 2015 Gastroesophageal reflux disease Hyperlipidemia Essential hypertension Osteoarthritis Dementia PLAN: -Continue with antibiotics in the form of vancomycin and Zosyn. Negative blood cultures and urine culture. Wound culture showed gram-negative bacilli and polymicrobial specimen. Follow renal function. Continue with home medications. Ortho recommends no surgical intervention. Replace lites. Monitor sodium level. Improved to 134 Coumadin will be held today due to elevated INR level 4.6 Pulmonary, cardiology and orthopedics is following. Prognosis is guarded GI and DVT prophylaxis. Patient is being transferred to medical floor today. Time with Patient: Greater than 30
[2017-05-01] MEDS: HYDROmorphone 1 MG/ML 1 ML SYRINGE IVP PRN ×7 (00:41→22:23)
[2017-05-01] MEDS: DEXTROSE 5%-0.9% NACL 1,000 ML IV SCH ×2 (03:37→20:29)
--- NOTE | 2017-05-01 05:17 | PN ---
PROGRESS NOTE DATE OF SERVICE: 04/30/2017. INTERVAL HISTORY: The patient is afebrile, has been breathing comfortably. Denies having any chest pain, shortness of breath, cough or diarrhea. EXAMINATION: Blood pressure is 135/87 with a pulse of 105, temperature of 98. He is 100% on 30% FiO2. General description is a middle-aged elderly male lying in bed in no distress. RESPIRATORY SYSTEM: Unlabored breathing. Clear to auscultation anteriorly. HEART: S1, S2. Regular rate and rhythm. ABDOMEN: Soft, no tenderness. Right leg swelling and redness improved. Wound on the leg with some slough tissue. LABS: Hemoglobin 11.4, white count of 7.9 with a BUN of 31, creatinine 1.20. Wound culture with gram-negative still not identified. DIAGNOSTIC IMPRESSION AND PLAN: Patient with right lower extremity cellulitis with wound culture showing gram-negative, antibiotic will be switched to cefepime 2 g q.12h. Discontinue Vanco and Zosyn. Local wound care to the leg wound with slough with Santyl followed by moist dressing. Continue supportive care. MMODL / IJN: [id number] /
[2017-05-01 06:30] LABS: Glucose,Whole Blood 112 mg/dL (75-99)
[2017-05-01 06:32] LABS: Basophils % (A) 0 %; CH 27.5; CHCM 31.2; Eosinophils # (A) 0.1 k/uL (0-0.7); Eosinophils % (A) 1 %; HCT 39.4 % (39.0-53.0); HDW 3.24; HGB 11.9 gm/dL (13.0-17.5); Hypochromasia Moderate; Luc % (Auto) 1; Lymphocytes # (A) 0.8 k/uL (1.0-4.8); Lymphocytes % (A) 11 %; MCH 26.8 pg (25.0-35.0); MCHC 30.3 g/dL (31.0-37.0); MCV 88.2 fL (80.0-100.0); Mean Platelet Volume 7.3; Monocytes # (A) 0.5 k/uL (0-1.0); Monocytes % (A) 6 %; Neutrophils # (A) 5.9 k/uL (1.3-7.7); Neutrophils % (A) 80 %; RBC 4.46 m/uL (4.30-5.90); RDW 15.9 % (11.5-15.5); WBC 7.5 k/uL (3.8-10.6); WBC (Perox) 7.91
[2017-05-01] MEDS: INSULIN ASPART 100 UNIT/ML 1 ML 10 ML VIAL SQ SCH ×4 (06:38→22:23)
[2017-05-01 06:39] LABS: INR 2.6 (<1.2); Prothrombin Time 24.8 sec (9.0-12.0)
[2017-05-01 06:45] LABS: Anion Gap 6 mmol/L; Blood Urea Nitrogen 26 mg/dL (9-20); Calcium 8.3 mg/dL (8.4-10.2); Carbon Dioxide 20 mmol/L (22-30); Chloride 114 mmol/L (98-107); Glucose 112 mg/dL (74-99); Magnesium 1.8 mg/dL (1.6-2.3); Non-African American GFR(MDRD) 51 (>60 ml/min/1.73 sqM); Potassium 4.8 mmol/L (3.5-5.1); Sodium 140 mmol/L (137-145)
[2017-05-01] MEDS: CEFEPIME 2 GM in SODIUM CHLORIDE 0.9% 50 ML IVPB SCH ×2 (08:56→20:10)
[2017-05-01] MEDS: METOPROLOL TARTRATE 25 MG TAB PO SCH (08:57)
[2017-05-01] MEDS: PANTOPRAZOLE 40 MG TABLET PO SCH (09:05)
[2017-05-01] MEDS ORDERED: METOPROLOL TARTRATE 25 MG TAB PO ONE (09:30)
[2017-05-01] MEDS: QUEtiapine 25 MG TAB PO SCH ×2 (10:43→22:13)
[2017-05-01] MEDS: MAGNESIUM SULFATE-D5W PMX 1 GM in DEXTROSE/WATER 1 100ML.BAG IVPB SCH ×2 (10:46→12:15)
--- NOTE | 2017-05-01 11:07 | PN ---
PROGRESS NOTE DATE OF SERVICE: 05/01/2017. REASON FOR FOLLOW UP: Right leg wound cellulitis. INTERVAL HISTORY: The patient is afebrile. He is breathing comfortably. Denies any chest pain, shortness of breath or cough. No abdominal pain, worsening pain in the right leg area. EXAMINATION: Blood pressure 134/90 with a pulse of 84, temperature 97.9. He is 96% on room air. General description is an elderly male up in the chair in no distress. Respiratory system unlabored breathing clear to auscultation anteriorly. Heart S1, S2. Regular rate and rhythm. Abdomen soft, no tenderness. Right leg wounds currently dressed, no obvious drainage on the dressing. LABS: Hemoglobin 11.8, white count 7.5 with a BUN of 26, creatinine 1.27. DIAGNOSTIC IMPRESSION AND PLAN: Patient with right leg wound and cellulitis. The patient at this time will continue on cefepime. Local wound care with Santyl to the leg wound and not to the foot. Hopefully finish therapy with oral antibiotics. Continue supportive care. MMODL / MINN: [id number] /
--- NOTE | 2017-05-01 11:26 | P.PN ---
Subjective Progress Note Date: 05/01/17 This is a 72-year-old gentleman past medical history significant for mitral valve replacement, hypertension, hyperlipidemia, chronic atrial fibrillation, presented to the hospital primarily with cellulitis and sepsis. Cardiology consultation was initially requested because of atrial fibrillation with rapid ventricular response noted on admission. Patient was also quite hypotensive on Levaquin had. He is currently being followed on the telemetry unit today. The patient's mentation continues to improve. Hemodynamically he is stable. Dose of beta iglesia was increased to 3 times a day yesterday, heart rate in the 80s today. INR today is 2.6, creatinine 1.3. We will give the patient 1 mg of Coumadin today. Objective - Vital Signs Vital signs: Vital Signs Temp 97.1 F L 05/01/17 08:47 Pulse 84 05/01/17 08:47 Resp 20 05/01/17 08:47 BP 134/90 05/01/17 08:47 Pulse Ox 96 05/01/17 08:47 Intake & Output 04/30/17 05/01/17 05/01/17 18:59 06:59 18:59 Intake Total 925 100 236 Output Total 540 2650 Balance 385 -2550 236 Weight 98.1 kg 101.5 kg Intake: IV 925 100 Dextrose 5%-0.9% NaCl 1, 600 100 000 ml @ 100 mls/hr IV . Q10H J[facility] Rx#:[id number] Magnesium Sulfate-D5w Pmx 100 1 gm In Dextrose/Water 1 100ml.bag @ 100 mls/hr IVPB Q1H JADON Rx#: [id number] Piperacillin-Tazobactam 3 100 .375 gm In Dextrose/Water 1 50ml.bag @ 12.5 mls/hr IVPB Q8HR [facility]ON Rx#: [id number] Vancomycin 1,250 mg In 125 Sodium Chloride 0.9% 250 ml @ 125 mls/hr IVPB Q16H JADON Rx#:[id number] Oral 236 Output: Urine 540 2650 Other: Voiding Method Indwelling Catheter Indwelling Catheter # Voids 0 # Bowel Movements 1 1 - Exam PHYSICAL EXAMINATION: HEENT: Head is atraumatic, normocephalic. Pupils equal, round. Neck is supple. There is no elevated jugular venous pressure. HEART EXAMINATION: S1 and S2 systolic murmur is heard. CHEST EXAMINATION: Lungs are clear to auscultation and precussion. No chest wall tenderness is noted on palpation or with deep breathing. ABDOMEN: Soft, nontender. Bowel sounds are heard. No organomegaly noted. EXTREMITIES: 1+ peripheral pulses positive bilateral lower extremity cellulitis . NEUROLOGIC patient is awake, alert and oriented -2. . - Labs CBC & Chem 7: 05/01/17 06:05 05/01/17 06:05 Labs: Abnormal Lab Results - Last 24 Hours (Table) 04/30/17 04/30/17 04/30/17 Range/Units 13:08 18:23 21:24 Hgb (13.0-17.5) gm/dL MCHC (31.0-37.0) g/dL RDW (11.5-15.5) % Plt Count (150-450) k/uL Lymphocytes # (1.0-4.8) k/uL PT (9.0-12.0) sec INR (<1.2) Chloride (98-107) mmol/L Carbon Dioxide (22-30) mmol/L BUN (9-20) mg/dL Creatinine (0.66-1.25) mg/dL Glucose (74-99) mg/dL POC Glucose (mg/dL) 136 H 218 H 160 H (75-99) mg/dL Calcium (8.4-10.2) mg/dL 05/01/17 05/01/17 05/01/17 Range/Units 06:05 06:05 06:05 Hgb 11.9 L (13.0-17.5) gm/dL MCHC 30.3 L (31.0-37.0) g/dL RDW 15.9 H (11.5-15.5) % Plt Count 114 L (150-450) k/uL Lymphocytes # 0.8 L (1.0-4.8) k/uL PT 24.8 H (9.0-12.0) sec INR 2.6 H (<1.2) Chloride 114 H (98-107) mmol/L Carbon Dioxide 20 L (22-30) mmol/L BUN 26 H (9-20) mg/dL Creatinine 1.37 H (0.66-1.25) mg/dL Glucose 112 H (74-99) mg/dL POC Glucose (mg/dL) (75-99) mg/dL Calcium 8.3 L (8.4-10.2) mg/dL 05/01/17 Range/Units 06:28 Hgb (13.0-17.5) gm/dL MCHC (31.0-37.0) g/dL RDW (11.5-15.5) % Plt Count (150-450) k/uL Lymphocytes # (1.0-4.8) k/uL PT (9.0-12.0) sec INR (<1.2) Chloride (98-107) mmol/L Carbon Dioxide (22-30) mmol/L BUN (9-20) mg/dL Creatinine (0.66-1.25) mg/dL Glucose (74-99) mg/dL POC Glucose (mg/dL) 112 H (75-99) mg/dL Calcium (8.4-10.2) mg/dL Microbiology - Last 24 Hours (Table) 04/25/17 17:44 Blood Culture - Preliminary Blood No Growth after 120 hours 04/25/17 14:40 Blood Culture - Preliminary Blood No Growth after 120 hours Assessment and Plan Plan: Assessment and plan #1 acute septic shock from cellulitis of the lower extremity #2 chronic persistent atrial fibrillation, on Coumadin for anticoagulation #3 acute psychosis, improving #4 hypertension #5 hyperlipidemia #6 history of mitral valve replacement #7 dementia Plan We will give the patient 1 mg of Coumadin today, continue other medications, check PT/INR in the morning. DNP note has been reviewed, I agree with a documented findings and plan of care. Patient was seen and examined.
[2017-05-01 11:55] LABS: Glucose,Whole Blood 164 mg/dL (75-99)
[2017-05-01] MEDS ORDERED: VANCOMYCIN TROUGH DUE 1 EACH MISC MISCELLANE ONE (13:00)
--- NOTE | 2017-05-01 13:26 | P.PN ---
Subjective Progress Note Date: 05/01/17 04/26/2017 72-year-old male who presented to the emergency room on 04/25/2017 with a chief complaint of right leg pain. Apparently, the patient was experiencing severe right leg pains the night before he presented to the hospital and he decided to lay down on the floor and he laid there the entire day until he was brought by EMS to the hospital. The patient has a history of chronic wounds to his right leg. At his last visit to his PCP, it was noted that there were no open lesions. The patient also has a history of atrial fibrillation, GERD, hyperlipidemia, hypertension, CABG with mitral valve replacement, dementia, and benign prostatic hyperplasia. The patient was hospitalized in 2014 for bilateral pneumonia that required mechanical ventilation secondary to Haemophilus influenza. According to Dr. 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 In the emergency room, multiple xrays were completed. A right femur x-ray shows mild right hip osteonecrosis. X-ray of the tibia and fibula show small nonspecific knee joint effusion, no acute osseous abnormality, and soft tissue swelling greater towards the ankle. A foot x-ray was completed which shows marked dorsal soft tissue swelling but did not reveal acute osseous abnormalities. The patient was found to be in atrial fibrillation with rapid ventricular rate in the 150s. He was started on a Cardizem drip. He was also hypotensive with a systolic blood pressure in the 70s to 80s. He required multiple fluid boluses and was also started on vasopressors. His temperature was noted to be 101.4. White count on admission was 19.6. Hemoglobin 13.1. His sodium was low at 126. Potassium was slightly elevated at 5.2. BUN/ creatinine were also elevated. BUN was 44 and creatinine 1.4. Lactic acid was significantly elevated at 4.7. Troponin was 0.232. He was started on Zosyn and vancomycin. He was admitted to the intensive care unit under the care of Dr. Mireles. Consults were placed to automotive parts counter person, Dr. García. Consults were also placed to infectious disease, cardiology, and orthopedics. The patient was seen and examined at the bedside with Dr. Mireles. The patient is very hard of hearing and states he is not wearing his hearing aides. His blood pressure is stable at this time with a systolic blood pressure ranging from 120 to 130. Per nursing, he has been off vasopressors since approximately 11 PM last night. He remains on a Cardizem drip at 5 mg an hour. His heart rate has improved and is ranging from 90-110. He remains on Zosyn and vancomycin. He is being followed by infectious disease. He is afebrile at this time. Urine cultures and blood cultures are currently pending. Wound culture from the right leg is also currently pending. He does continue to complain of pain in the right leg and foot. He denies any shortness of breath. He is maintaining an oxygen saturation greater than 92%. He denies chest pain or pressure. 04/27/2017 (Notes per Dr. Griffin) Patient is off pressor support. Currently on vancomycin and Zosyn. Off Cardizem drip as well heart rate is better controlled. Wound culture showed gram-negative bacilli Blood cultures showed no growth so far area leukocytosis improved to 14.0. Sodium level found to be 129 creatinine 1.11 currently patient is awake and oriented and mental status much improved. Patient does have underlying hearing difficulty. 04/28/2017 (Notes per Dr. Griffin) Patient was agitated and was hallucinating this morning. And also overnight. Patient was given IV Ativan. Currently patient is lying comfortably. Otherwise his sodium level improved to 130 today. Will continue IV fluids in the form of normal saline. Patient is still having significant lower extremity right-sided swelling and redness and to stage II ulcers. Leukocytosis improved to 13.0. Otherwise his renal function worsened with creatinine level increased from 1.1-1.3. Wound cultures so is showing gram-negative bacilli. No fever no chills. Blood cultures and urine cultures are still pending. 04/29/2017 (Notes per Dr. Griffin) Patient is currently on BiPAP. Patient did have apneic episodes in the morning today. Patient was given Ativan dose last night which has been discontinued now. Continued on Seroquel. Otherwise wound cultures showed gram-negative bacilli. ID and pulmonary is following. Otherwise patient is hemodynamically stable. Patient is a poor historian complete review of systems could not be obtained. 04/30/2017 (Notes per Dr. Griffin) Patient is more awake and oriented today. Hemodynamically stable. Denied any chest pain or worsening short of breath. Leg swelling and redness seems to be improved slightly. INR 4.6 today. Remains on antibiotics of vancomycin and Zosyn. Patient is being transferred to medical floor today. 05/01/2017 Patient seen and examined this morning by Dr. Mireles. Patient mentation seems to be slowly improving. He remains on seroquel. Blood pressure is stable. He is afebrile. He is maintaining oxygen saturations greater than 92% on room air. Patient is utilizing Bi-pap at night secondary to episodes of apnea while sleeping. He remains in atrial fibrillation with a controlled rate. He was started on Coumadin per cardiology. His Coumadin was held last night due to elevated INR 4.6. His INR this morning is 2.6. Scheduled to receive 1 mg of Coumadin tonight. He remains on cefepime 2 g every 12 hours per infectious disease. He is also receiving Santyl to lower extremity wounds with moist dressing changes. Case management and social work have been consulted regarding ECF placement. Objective - Vital Signs Vital signs: Vital Signs Temp 97.1 F L 05/01/17 08:47 Pulse 84 05/01/17 08:47 Resp 20 05/01/17 08:47 BP 134/90 05/01/17 08:47 Pulse Ox 96 05/01/17 08:47 Intake & Output 04/30/17 05/01/17 05/01/17 18:59 06:59 18:59 Intake Total 925 100 236 Output Total 540 2650 Balance 385 -2550 236 Weight 98.1 kg 101.5 kg Intake: IV 925 100 Dextrose 5%-0.9% NaCl 1, 600 100 000 ml @ 100 mls/hr IV . Q10H [facility] Rx#:[id number] Magnesium Sulfate-D5w Pmx 100 1 gm In Dextrose/Water 1 100ml.bag @ 100 mls/hr IVPB Q1H [facility] Rx#: [id number] Piperacillin-Tazobactam 3 100 .375 gm In Dextrose/Water 1 50ml.bag @ 12.5 mls/hr IVPB Q8HR [facility] Rx#: [id number] Vancomycin 1,250 mg In 125 Sodium Chloride 0.9% 250 ml @ 125 mls/hr IVPB Q16H [facility] Rx#:[id number] Oral 236 Output: Urine 540 2650 Other: Voiding Method Indwelling Catheter Indwelling Catheter # Voids 0 # Bowel Movements 1 1 - Exam GENERAL: This is a 72-year-old male in no apparent distress at the time of examination. He is very hard of hearing. Remains confused. HEENT: Head is atraumatic, normocephalic. Pupils are equal, round, and reactive to light. Sclerae anicteric. Conjunctivae are clear. Mucus membranes of the mouth are moist. Neck is supple. RESPIRATORY: Clear to ausculation, diminished at the bases. No wheezes, rales, or rhonchi. No use of accessory muscles. Patient maintaining oxygen saturation greater than 92%. No chest wall tenderness is noted on palpation or with deep breathing. CARDIOVASCULAR: Irregular. Rate controlled. cardiac monitor technician shows atrial fibrillation. S1 and S2 noted. Systolic murmur auscultated. No JVD noted. No S3 or S4 noted. GASTROINTESTINAL: No distention noted. Abdomen soft and round. Normal active bowel sounds auscultated X 4 quadrants. No pain or tenderness noted upon palpation. INTEGUMENTARY: Right lower extremity swelling and erythema that extends to knee and thigh, two areas of dark purple discoloration present. Two dime-sized open lesions noted mid calf. Dressing with santyl applied. No jaundice. No rashes noted. EXTREMITIES: Decreased pedal pulses. No calf tenderness noted. NEUROLOGIC: Cranial nerves II-XII intact. PSYCHIATRIC: Awake and alert, but remains confused. - Labs CBC & Chem 7: 05/01/17 06:05 05/01/17 06:05 Labs: Abnormal Lab Results - Last 24 Hours (Table) 04/30/17 04/30/17 04/30/17 Range/Units 13:08 18:23 21:24 Hgb (13.0-17.5) gm/dL MCHC (31.0-37.0) g/dL RDW (11.5-15.5) % Plt Count (150-450) k/uL Lymphocytes # (1.0-4.8) k/uL PT (9.0-12.0) sec INR (<1.2) Chloride (98-107) mmol/L Carbon Dioxide (22-30) mmol/L BUN (9-20) mg/dL Creatinine (0.66-1.25) mg/dL Glucose (74-99) mg/dL POC Glucose (mg/dL) 136 H 218 H 160 H (75-99) mg/dL Calcium (8.4-10.2) mg/dL 05/01/17 05/01/17 05/01/17 Range/Units 06:05 06:05 06:05 Hgb 11.9 L (13.0-17.5) gm/dL MCHC 30.3 L (31.0-37.0) g/dL RDW 15.9 H (11.5-15.5) % Plt Count 114 L (150-450) k/uL Lymphocytes # 0.8 L (1.0-4.8) k/uL PT 24.8 H (9.0-12.0) sec INR 2.6 H (<1.2) Chloride 114 H (98-107) mmol/L Carbon Dioxide 20 L (22-30) mmol/L BUN 26 H (9-20) mg/dL Creatinine 1.37 H (0.66-1.25) mg/dL Glucose 112 H (74-99) mg/dL POC Glucose (mg/dL) (75-99) mg/dL Calcium 8.3 L (8.4-10.2) mg/dL 05/01/17 Range/Units 06:28 Hgb (13.0-17.5) gm/dL MCHC (31.0-37.0) g/dL RDW (11.5-15.5) % Plt Count (150-450) k/uL Lymphocytes # (1.0-4.8) k/uL PT (9.0-12.0) sec INR (<1.2) Chloride (98-107) mmol/L Carbon Dioxide (22-30) mmol/L BUN (9-20) mg/dL Creatinine (0.66-1.25) mg/dL Glucose (74-99) mg/dL POC Glucose (mg/dL) 112 H (75-99) mg/dL Calcium (8.4-10.2) mg/dL Microbiology - Last 24 Hours (Table) 04/25/17 17:44 Blood Culture - Preliminary Blood No Growth after 120 hours 04/25/17 14:40 Blood Culture - Preliminary Blood No Growth after 120 hours Assessment and Plan Plan: ASSESSMENT: Acute septic shock, present on admission, secondary to cellulitis of right lower extremity Cellulitis of right lower extremity and foot, present on admission, improving Hypotension, secondary to sepsis, requiring vasopressors and fluid resuscitation , resolved Chronic atrial fibrillation, maintained on Lopressor and Digoxin outpatient, started on anticoagulation with Coumadin Atrial fibrillation with rapid ventricular rate, rate currently controlled with metoprolol Acute delirium/ICU psychosis, improving with seroquel History of coronary artery disease with previous CABG and mitral valve replacement Previous history of MRSA 2 History of bilateral pneumonia secondary to Haemophilus influenza requiring mechanical ventilation in 2014 Gastroesophageal reflux disease Hyperlipidemia Essential hypertension Osteoarthritis Dementia PLAN: -Cardiology on consult. Appreciate recommendations and input -Continue metoprolol -Infectious disease on consult. Appreciate recommendations and input -Continue cefepime -Santyl and moist dressing to lower extremity wound -Orthopedics on consult. No surgical intervention at this time -Continue seroquel 25mg BID. Ativan PRN. -Monitor labs -Replace magnesium per protocol -GI prophylaxis: Protonix 40 mg PO daily -DVT prophylaxis: Patient on coumadin -Monitor vital signs and address as appropriate -Case management/social work consulted -Discharge planning: Subacute rehab/ECF -Further recommendations pending patient's clinical course Nurse practitioner note has been reviewed by physician. Signing provider agrees with the documented findings, assessment, and plan of care.
--- NOTE | 2017-05-01 14:11 | P.PN ---
Subjective Progress Note Date: 05/01/17 Principal diagnosis: Acute septic shock and cellulitis of the right lower extremity This is a 72-year-old white male with history of multiple medical problems including osteoarthritis, hypertension, coronary artery disease and previous CABG, chronic atrial fibrillation, previous mitral valve replacement, history of dementia, patient presented to the ER yesterday with a few weeks history of right leg pain, redness, and swelling. The patient himself is a very poor historian, and he is very hard of hearing. Patient denies any trauma to the right lower extremity. Pain has been getting more severe and throbbing without radiation involving mostly the right lower extremity below the knee extending to the foot and toes. Patient denied any fever , however he had a temp of 102 on presentation. Patient was also noted noted to be hypotensive in the ER, required 4 L of fluid boluses and required placement on norepinephrine for few hours. His norepinephrine was discontinued 6 hours prior to my evaluation. His blood pressures seems to be relatively stable at this point. Patient was also on Cardizem and he remains on Cardizem at 5 mg per hour for atrial fibrillation and RVR. X-rays and CT of the right leg failed to show necrotizing fasciitis, they all showed mostly swelling of the soft tissue, and no evidence of abscess to drain. Considering the presentation of severe cellulitis involving the right lower extremity, and considering the hypotension requiring fluid boluses and norepinephrine, patient was admitted to the ICU and this consult was initiated. Patient is now on vancomycin and Zosyn, blood cultures are pending. Presently, the patient denies any headache, no blurred vision, no dizziness, denies any chest pain, no shortness of breath, no nausea no vomiting no abdominal pain. Patient is very hard of hearing, complaining of mostly severe pain of the right leg and the right foot, normally takes [place] at home for his pain control. On 04/27/2017, patient remains on antibiotics for his right lower extremity cellulitis and septic shock. Off norepinephrine, urine output is reasonable, patient is hemodynamically stable, cultures from the wound in the right lower extremity is positive for gram-negative bacilli. Blood cultures are pending. So far negative. WBC count is 14.0 hemoglobin is 11.8 electrolytes showed slightly low sodium of 129. Renal profile is improved with BUN of 52 creatinine is 1.11. Patient is not in any form of respiratory distress. On 04/28/2017, patient remains in the ICU, hemodynamically stable, however the patient has been experiencing intermittent episodes of agitation and hallucinations. Requiring multiple doses of Ativan last night, today I recommended starting the patient on Seroquel. A bit reluctant to start Haldol at this point yet. Patient continues to have significant cellulitis of the right lower extremity, he also seems to be developing significant amount of ecchymosis in lower abdomen, and there is some mottling noted in the left lower extremity as well as upper portion of the right upper extremity. Hence I have recommended stopping heparin, patient was already started on Coumadin yesterday. Platelets are a bit on the low side, patient had a previous bioprosthetic valve. His extreme agitation overnight seems to respond well to Ativan, and hopefully will do better with Seroquel. Patient remains on antibiotics as per infectious disease, his wound culture came back positive for gram-negative bacilli, blood cultures are negative, final sensitivity on the wound culture is pending. On 04/29/2017, patient remains in the ICU, hemodynamically stable, continues to have intermittent episodes of confusion said agitations as well as hallucinations. Last night patient was given Ativan, and for some reason he was not given his Seroquel dose which I ordered. Cultures were reviewed, and those are being addressed by infectious disease on the case. Labs were reviewed relatively normal CBC noted. INR is 2.3 electrolytes are relatively normal except for sodium of 131 BUN is 36 creatinine is 1.40. Wound culture is showing gram-negative bacilli, final at the education is pending. On 04/30/2017, patient remains in the ICU, however I plan to transfer the patient out of the ICU today. He remains hemodynamically stable, remains on the same antibiotics, his cellulitis in the right lower extremity seems to be improving, and the areas of erythema seems to be receding. The swelling seems to be improved and the tenderness is also improved. Clearly the patient is responding well to treatment. He is also doing well with the Seroquel as far as his mental status is concerned, overnight he was placed on BiPAP because of episodes of stop breathing and symptoms of obstructive sleep apnea syndrome with snoring. Tolerated the BiPAP of 12 and 4 quite well, and I plan to keep him on BiPAP while inpatient. Mental status seems to be also improving. CBC is relatively normal. No evidence of leukocytosis. INR is 4.6, hence Coumadin is presently on hold. Renal profile is improving creatinine is 1.0 today. Overall, I believe the patient is making a steady improvement. Hence I plan to transfer out of the ICU today. On 05/01/2017 patient is seen in follow-up on [facility] care floor. He is alert awake, however confused and restless. His fiance is at the bedside, she states patient has been trying to get up unassisted. Remains generally weak. This morning he set up on the edge of the bed and slid off the bed, he did not sustain any injuries. Lung sounds are clear to auscultation, no rhonchi no wheezes, no signs of chest congestion. His oxygenation is stable on room air, O2 sat at 97%. Hemodynamically stable, afebrile. Blood cultures have been negative since admission, urine culture has shown no growth. Wound culture of the right leg showed gram-negative bacilli. Patient continues on IV cefepime. Objective - Vital Signs Vital signs: Vital Signs Temp 96.8 F L 05/01/17 11:56 Pulse 85 05/01/17 11:56 Resp 20 05/01/17 11:56 BP 96/67 05/01/17 11:56 Pulse Ox 100 05/01/17 11:56 Intake & Output 04/30/17 05/01/17 05/01/17 18:59 06:59 18:59 Intake Total 925 100 236 Output Total 540 2650 Balance 385 -2550 236 Weight 98.1 kg 101.5 kg 101.5 kg Intake: IV 925 100 Dextrose 5%-0.9% NaCl 1, 600 100 000 ml @ 100 mls/hr IV . Q10H JADON Rx#:[id number] Magnesium Sulfate-D5w Pmx 100 1 gm In Dextrose/Water 1 100ml.bag @ 100 mls/hr IVPB Q1H JADON Rx#: [id number] Piperacillin-Tazobactam 3 100 .375 gm In Dextrose/Water 1 50ml.bag @ 12.5 mls/hr IVPB Q8HR JADON Rx#: [id number] Vancomycin 1,250 mg In 125 Sodium Chloride 0.9% 250 ml @ 125 mls/hr IVPB Q16H JADON Rx#:[id number] Oral 236 Output: Urine 540 2650 Other: Voiding Method Indwelling Catheter Indwelling Catheter Indwelling Catheter # Voids 0 # Bowel Movements 1 1 - Exam Exam General appearance: Field a 72-year-old white male in no distress. Hard of hearing. Head exam: Normocephalic, atraumatic. Looks slightly pale. Eye exam: PERRLA, EOMI, no icterus, pale and dry mucous membranes noted. ENT exam: Pale and dry mucous membranes, otherwise nasal mucosa and oral mucosa is normal. Throat is clear. Neck exam: Short neck, obese, supple, no masses, no JVD, no stridor. Respiratory exam: Clear, diminished at the bases, no rhonchi and no wheezes. No chest wall tenderness. Cardiovascular Exam: Regular rhythm, no S3 gallop, 2/6 systolic murmur throughout the precordium. GI/Abdominal exam: Soft nontender no megaly no rebound no guarding. Areas of ecchymosis noted in the abdominal wall at the site of heparin injections. Extremities exam: Significant improvement is noted in the swelling and erythema in right lower extremity. Back exam: Unremarkable. Neurological exam: Hard of hearing, otherwise no focal neurologic deficit. Psychiatric exam: Normal mood affect and normal mental status examination today. Skin: Erythema as noted involving the right leg. As noted above. - Labs CBC & Chem 7: 05/01/17 06:05 05/01/17 06:05 Labs: Abnormal Lab Results - Last 24 Hours (Table) 04/30/17 04/30/17 05/01/17 Range/Units 18:23 21:24 06:05 Hgb 11.9 L (13.0-17.5) gm/dL MCHC 30.3 L (31.0-37.0) g/dL RDW 15.9 H (11.5-15.5) % Plt Count 114 L (150-450) k/uL Lymphocytes # 0.8 L (1.0-4.8) k/uL PT (9.0-12.0) sec INR (<1.2) Chloride (98-107) mmol/L Carbon Dioxide (22-30) mmol/L BUN (9-20) mg/dL Creatinine (0.66-1.25) mg/dL Glucose (74-99) mg/dL POC Glucose (mg/dL) 218 H 160 H (75-99) mg/dL Calcium (8.4-10.2) mg/dL 05/01/17 05/01/17 05/01/17 Range/Units 06:05 06:05 06:28 Hgb (13.0-17.5) gm/dL MCHC (31.0-37.0) g/dL RDW (11.5-15.5) % Plt Count (150-450) k/uL Lymphocytes # (1.0-4.8) k/uL PT 24.8 H (9.0-12.0) sec INR 2.6 H (<1.2) Chloride 114 H (98-107) mmol/L Carbon Dioxide 20 L (22-30) mmol/L BUN 26 H (9-20) mg/dL Creatinine 1.37 H (0.66-1.25) mg/dL Glucose 112 H (74-99) mg/dL POC Glucose (mg/dL) 112 H (75-99) mg/dL Calcium 8.3 L (8.4-10.2) mg/dL 05/01/17 Range/Units 11:53 Hgb (13.0-17.5) gm/dL MCHC (31.0-37.0) g/dL RDW (11.5-15.5) % Plt Count (150-450) k/uL Lymphocytes # (1.0-4.8) k/uL PT (9.0-12.0) sec INR (<1.2) Chloride (98-107) mmol/L Carbon Dioxide (22-30) mmol/L BUN (9-20) mg/dL Creatinine (0.66-1.25) mg/dL Glucose (74-99) mg/dL POC Glucose (mg/dL) 164 H (75-99) mg/dL Calcium (8.4-10.2) mg/dL Microbiology - Last 24 Hours (Table) 04/25/17 17:44 Blood Culture - Preliminary Blood No Growth after 120 hours 04/25/17 14:40 Blood Culture - Preliminary Blood No Growth after 120 hours Assessment and Plan Assessment: Assessment: Impression: 1 acute septic shock from cellulitis of the right lower extremity and right foot. Patient has now been switched to cefepime, Zosyn and vancomycin had been discontinued per ID recommendation. Patient demonstrated significant improvement while on antibiotics, IV fluids were given initially, was on a short course of pressors, and he was also placed on BiPAP for what seems to be obstructive sleep apnea syndrome. His agitation responded well to Seroquel. 2 chronic atrial fibrillation, improved. Presently on Lopressor at 25 mg by mouth 3 times a day. 3 acute ICU psychosis, patient is presently on Ativan, Seroquel was added, may have to consider Haldol or Precedex. 3 history of multiple comorbidities including hypertension, hyperlipidemia, osteoarthritis, previous CABG, history of mitral valve replacement, history of dementia, hard of hearing, history of respiratory failure secondary to bilateral pneumonia secondary to Haemophilus influenza back in 2015. Recommendation: Continue present treatment plan including antibiotics, metoprolol and Coumadin, vancomycin and Zosyn discontinued per ID recommendation, cefepime was initiated. Local wound care with Santyl to the right lower leg extremity. We' ll initiate physical therapy, patient remains generally weak. Continues with confusion and restlessness, close supervision, fall precautions will continue. Further recommendations to follow. I performed a history & physical examination of the patient and discussed their management with my nurse practitioner, Angélica Munson. I reviewed the nurse practitioner's note and agree with the documented findings and plan of care. Lung sounds are clear, no rhonchi, no rales, no wheezes. The findings and the impression was discussed with the patient. I attest to the documentation by the nurse practitioner. Time with Patient: Less than 30
[2017-05-01] MEDS: COLLAGENASE 250 UNIT/GM OINTMENT 30 GM TUBE TOPICAL SCH (15:50)
[2017-05-01 17:00] LABS: Glucose,Whole Blood 200 mg/dL (75-99)
[2017-05-01] MEDS ORDERED: WARFARIN 2.5 MG TAB PO ONE (18:00)
[2017-05-01] MEDS ORDERED: WARFARIN 1 MG TAB PO ONE (18:00)
[2017-05-01] MEDS: METOPROLOL TARTRATE 50 MG TAB PO SCH (20:31)
[2017-05-01 21:18] LABS: Glucose,Whole Blood 135 mg/dL (75-99)
[2017-05-01] MEDS: LORazepam 2 MG/ML INJ IV PRN (22:13)
[2017-05-02] MEDS: DEXTROSE 5%-0.9% NACL 1,000 ML IV SCH ×3 (05:53→16:41)
[2017-05-02 06:10] LABS: Glucose,Whole Blood 99 mg/dL (75-99)
[2017-05-02] MEDS: HYDROmorphone 1 MG/ML 1 ML SYRINGE IVP PRN ×5 (06:14→21:13)
[2017-05-02] MEDS: INSULIN ASPART 100 UNIT/ML 1 ML 10 ML VIAL SQ SCH ×4 (06:14→21:13)
[2017-05-02 06:25] LABS: Anisocytosis Slight; Basophils % (A) 0 %; CH 27.5; CHCM 31.3; Eosinophils # (A) 0.1 k/uL (0-0.7); Eosinophils % (A) 1 %; HDW 3.35; HGB 11.9 gm/dL (13.0-17.5); Hypochromasia Moderate; Luc # (Auto) 0.16; Luc % (Auto) 2; Lymphocytes # (A) 0.9 k/uL (1.0-4.8); Lymphocytes % (A) 12 %; MCH 26.9 pg (25.0-35.0); MCHC 30.6 g/dL (31.0-37.0); MCV 88.1 fL (80.0-100.0); Mean Platelet Volume 7.2; Monocytes # (A) 0.5 k/uL (0-1.0); Monocytes % (A) 6 %; Neutrophils # (A) 6.2 k/uL (1.3-7.7); Neutrophils % (A) 79 %; RBC 4.43 m/uL (4.30-5.90); WBC 7.8 k/uL (3.8-10.6); WBC (Perox) 7.73
[2017-05-02 06:30] LABS: INR 1.9 (<1.2); Prothrombin Time 18.4 sec (9.0-12.0)
[2017-05-02 06:36] LABS: Anion Gap 7 mmol/L; Blood Urea Nitrogen 22 mg/dL (9-20); Calcium 8.6 mg/dL (8.4-10.2); Carbon Dioxide 20 mmol/L (22-30); Chloride 112 mmol/L (98-107); Glucose 87 mg/dL (74-99); Magnesium 1.9 mg/dL (1.6-2.3); Non-African American GFR(MDRD) 54 (>60 ml/min/1.73 sqM); Potassium 3.9 mmol/L (3.5-5.1); Sodium 139 mmol/L (137-145)
[2017-05-02] MEDS: PANTOPRAZOLE 40 MG TABLET PO SCH (08:29)
[2017-05-02] MEDS: METOPROLOL TARTRATE 50 MG TAB PO SCH ×2 (08:29→21:12)
[2017-05-02] MEDS: QUEtiapine 25 MG TAB PO SCH ×2 (08:29→21:12)
[2017-05-02] MEDS: COLLAGENASE 250 UNIT/GM OINTMENT 30 GM TUBE TOPICAL SCH (08:29)
[2017-05-02] MEDS: CEFEPIME 2 GM in SODIUM CHLORIDE 0.9% 50 ML IVPB SCH ×2 (08:44→21:12)
[2017-05-02 11:45] LABS: Glucose,Whole Blood 144 mg/dL (75-99)
--- NOTE | 2017-05-02 11:50 | P.PN ---
Subjective Progress Note Date: 05/02/17 04/26/2017 72-year-old male who presented to the emergency room on 04/25/2017 with a chief complaint of right leg pain. Apparently, the patient was experiencing severe right leg pains the night before he presented to the hospital and he decided to lay down on the floor and he laid there the entire day until he was brought by EMS to the hospital. The patient has a history of chronic wounds to his right leg. At his last visit to his PCP, it was noted that there were no open lesions. The patient also has a history of atrial fibrillation, GERD, hyperlipidemia, hypertension, CABG with mitral valve replacement, dementia, and benign prostatic hyperplasia. The patient was hospitalized in 2014 for bilateral pneumonia that required mechanical ventilation secondary to Haemophilus influenza. According to Dr. 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 In the emergency room, multiple xrays were completed. A right femur x-ray shows mild right hip osteonecrosis. X-ray of the tibia and fibula show small nonspecific knee joint effusion, no acute osseous abnormality, and soft tissue swelling greater towards the ankle. A foot x-ray was completed which shows marked dorsal soft tissue swelling but did not reveal acute osseous abnormalities. The patient was found to be in atrial fibrillation with rapid ventricular rate in the 150s. He was started on a Cardizem drip. He was also hypotensive with a systolic blood pressure in the 70s to 80s. He required multiple fluid boluses and was also started on vasopressors. His temperature was noted to be 101.4. White count on admission was 19.6. Hemoglobin 13.1. His sodium was low at 126. Potassium was slightly elevated at 5.2. BUN/ creatinine were also elevated. BUN was 44 and creatinine 1.4. Lactic acid was significantly elevated at 4.7. Troponin was 0.232. He was started on Zosyn and vancomycin. He was admitted to the intensive care unit under the care of Dr. Mireles. Consults were placed to kerfer machine operator, Dr. García. Consults were also placed to infectious disease, cardiology, and orthopedics. The patient was seen and examined at the bedside with Dr. Mireles. The patient is very hard of hearing and states he is not wearing his hearing aides. His blood pressure is stable at this time with a systolic blood pressure ranging from 120 to 130. Per nursing, he has been off vasopressors since approximately 11 PM last night. He remains on a Cardizem drip at 5 mg an hour. His heart rate has improved and is ranging from 90-110. He remains on Zosyn and vancomycin. He is being followed by infectious disease. He is afebrile at this time. Urine cultures and blood cultures are currently pending. Wound culture from the right leg is also currently pending. He does continue to complain of pain in the right leg and foot. He denies any shortness of breath. He is maintaining an oxygen saturation greater than 92%. He denies chest pain or pressure. 04/27/2017 (Notes per Dr. Griffin) Patient is off pressor support. Currently on vancomycin and Zosyn. Off Cardizem drip as well heart rate is better controlled. Wound culture showed gram-negative bacilli Blood cultures showed no growth so far area leukocytosis improved to 14.0. Sodium level found to be 129 creatinine 1.11 currently patient is awake and oriented and mental status much improved. Patient does have underlying hearing difficulty. 04/28/2017 (Notes per Dr. Griffin) Patient was agitated and was hallucinating this morning. And also overnight. Patient was given IV Ativan. Currently patient is lying comfortably. Otherwise his sodium level improved to 130 today. Will continue IV fluids in the form of normal saline. Patient is still having significant lower extremity right-sided swelling and redness and to stage II ulcers. Leukocytosis improved to 13.0. Otherwise his renal function worsened with creatinine level increased from 1.1-1.3. Wound cultures so is showing gram-negative bacilli. No fever no chills. Blood cultures and urine cultures are still pending. 04/29/2017 (Notes per Dr. Griffin) Patient is currently on BiPAP. Patient did have apneic episodes in the morning today. Patient was given Ativan dose last night which has been discontinued now. Continued on Seroquel. Otherwise wound cultures showed gram-negative bacilli. ID and pulmonary is following. Otherwise patient is hemodynamically stable. Patient is a poor historian complete review of systems could not be obtained. 04/30/2017 (Notes per Dr. Griffin) Patient is more awake and oriented today. Hemodynamically stable. Denied any chest pain or worsening short of breath. Leg swelling and redness seems to be improved slightly. INR 4.6 today. Remains on antibiotics of vancomycin and Zosyn. Patient is being transferred to medical floor today. 05/01/2017 Patient seen and examined this morning by Dr. Mireles. Patient mentation seems to be slowly improving. He remains on seroquel. Blood pressure is stable. He is afebrile. He is maintaining oxygen saturations greater than 92% on room air. Patient is utilizing Bi-pap at night secondary to episodes of apnea while sleeping. He remains in atrial fibrillation with a controlled rate. He was started on Coumadin per cardiology. His Coumadin was held last night due to elevated INR 4.6. His INR this morning is 2.6. Scheduled to receive 1 mg of Coumadin tonight. He remains on cefepime 2 g every 12 hours per infectious disease. He is also receiving Santyl to lower extremity wounds with moist dressing changes. Case management and social work have been consulted regarding ECF placement. 05/02/2017 Patient seen and examined this morning on rounds with Dr. Mireles. Patient wearing Bipap during our examination, which he has been wearing at night secondary to periods of apnea while sleeping. He remains on room air during the day. Patients blood pressure is stable. He remains on metoprolol and his heart rate is ranging between 60 and 80. He is afebrile. INR this morning was 1.9. Patient is scheduled to receive 5mg of Coumadin tonight. The patient remains on Cefepime per infectious disease. Blood cultures are negative. Urine culture is negative. Wound culture is positive for gram negative bacilli, but no identification of organism is available. Spoke with Dr. Tucker regarding wound culture. No repeat culture is necessary. Case management and social work are continuing to work on discharge planning. Spoke with Regan social media community manager, today and was updated on discharge planning. Patient's girlfriend has financial power of state's attorney on patient. The patient's sister has medical power of state's attorney but has given permission for the patient's 2 children to decide on which ECF they would like the patient to go. They are to update social work when they have made a decision. Objective - Vital Signs Vital signs: Vital Signs Temp 98 F 05/02/17 08:00 Pulse 90 05/02/17 08:00 Resp 18 05/02/17 08:00 BP 132/87 05/02/17 08:00 Pulse Ox 99 05/02/17 08:00 Intake & Output 05/01/17 05/02/17 05/02/17 18:59 06:59 18:59 Intake Total 726 300 Output Total 2300 Balance 726 -2300 300 Weight 101.5 kg 100.5 kg Intake: Oral 726 300 Output: Urine 2300 Other: Voiding Method Indwelling Catheter Indwelling Catheter Indwelling Catheter # Bowel Movements 1 - Exam GENERAL: This is a 72-year-old male in no apparent distress at the time of examination. He is very hard of hearing. Remains confused. HEENT: Head is atraumatic, normocephalic. Pupils are equal, round, and reactive to light. Sclerae anicteric. Conjunctivae are clear. Mucus membranes of the mouth are moist. Neck is supple. RESPIRATORY: Clear to ausculation, diminished at the bases. No wheezes, rales, or rhonchi. No use of accessory muscles. Patient maintaining oxygen saturation greater than 92%. No chest wall tenderness is noted on palpation or with deep breathing. CARDIOVASCULAR: Irregular. Rate controlled. back facer shows atrial fibrillation. S1 and S2 noted. Systolic murmur auscultated. No JVD noted. No S3 or S4 noted. GASTROINTESTINAL: No distention noted. Abdomen soft and round. Normal active bowel sounds auscultated X 4 quadrants. No pain or tenderness noted upon palpation. INTEGUMENTARY: Right lower extremity swelling and erythema noted which is improving. Local wound care with Santyl and dressing noted. No jaundice. No rashes noted. EXTREMITIES: Decreased pedal pulses. No calf tenderness noted. NEUROLOGIC: Cranial nerves II-XII intact. PSYCHIATRIC: Awake and alert, but remains confused. - Labs CBC & Chem 7: 05/02/17 05:48 05/02/17 05:48 Labs: Abnormal Lab Results - Last 24 Hours (Table) 05/01/17 05/01/17 05/01/17 Range/Units 11:53 16:47 21:06 Hgb (13.0-17.5) gm/dL MCHC (31.0-37.0) g/dL RDW (11.5-15.5) % Plt Count (150-450) k/uL Lymphocytes # (1.0-4.8) k/uL PT (9.0-12.0) sec INR (<1.2) Chloride (98-107) mmol/L Carbon Dioxide (22-30) mmol/L BUN (9-20) mg/dL Creatinine (0.66-1.25) mg/dL POC Glucose (mg/dL) 164 H 200 H 135 H (75-99) mg/dL 05/02/17 05/02/17 05/02/17 Range/Units 05:48 05:48 05:48 Hgb 11.9 L (13.0-17.5) gm/dL MCHC 30.6 L (31.0-37.0) g/dL RDW 16.0 H (11.5-15.5) % Plt Count 129 L (150-450) k/uL Lymphocytes # 0.9 L (1.0-4.8) k/uL PT 18.4 H (9.0-12.0) sec INR 1.9 H (<1.2) Chloride 112 H (98-107) mmol/L Carbon Dioxide 20 L (22-30) mmol/L BUN 22 H (9-20) mg/dL Creatinine 1.30 H (0.66-1.25) mg/dL POC Glucose (mg/dL) (75-99) mg/dL Microbiology - Last 24 Hours (Table) 04/25/17 17:44 Blood Culture - Final Blood No Growth after 144 hours 04/25/17 14:40 Blood Culture - Final Blood No Growth after 144 hours Assessment and Plan Plan: ASSESSMENT: Acute septic shock, present on admission, secondary to cellulitis of right lower extremity, improving Cellulitis of right lower extremity and foot, present on admission, improving Hypotension, secondary to sepsis, requiring vasopressors and fluid resuscitation , resolved Chronic atrial fibrillation, maintained on Lopressor and Digoxin outpatient, started on anticoagulation with Coumadin Atrial fibrillation with rapid ventricular rate, rate currently controlled with metoprolol Acute delirium/ICU psychosis, improving with seroquel History of coronary artery disease with previous CABG and mitral valve replacement Previous history of MRSA 2 History of bilateral pneumonia secondary to Haemophilus influenza requiring mechanical ventilation in 2015 Gastroesophageal reflux disease Hyperlipidemia Essential hypertension Osteoarthritis Dementia PLAN: -Cardiology on consult. Appreciate recommendations and input -Continue metoprolol. Currently on 50 mg by mouth twice a day -Patient to receive 5mg coumadin tonight. recheck INR in AM. -Infectious disease on consult. Appreciate recommendations and input -Continue cefepime, No repeat wound culture necessary -Santyl and moist dressing to lower extremity wound -Continue seroquel 25mg BID. Ativan PRN. -Monitor labs -GI prophylaxis: Protonix 40 mg PO daily -DVT prophylaxis: Patient on coumadin -Monitor vital signs and address as appropriate -PT/OT -Case management/social work consulted -Discharge planning: Subacute rehab/ECF. Patients family to update social work when they have made a decision regarding ECF location -Further recommendations pending patient's clinical course Nurse practitioner note has been reviewed by physician. Signing provider agrees with the documented findings, assessment, and plan of care.
--- NOTE | 2017-05-02 14:32 | P.PN ---
Subjective Progress Note Date: 05/02/17 This is a 72-year-old gentleman past medical history significant for mitral valve replacement, hypertension, hyperlipidemia, chronic atrial fibrillation, presented to the hospital primarily with cellulitis and sepsis. Cardiology consultation was initially requested because of atrial fibrillation with rapid ventricular response noted on admission. Patient was also quite hypotensive on Levaquin had. He is currently being followed on the telemetry unit today. The patient's mentation continues to improve. Hemodynamically he is stable. Dose of beta iglesia was increased to 3 times a day yesterday, heart rate in the 80s today. INR today is 2.6, creatinine 1.3. We will give the patient 1 mg of Coumadin today. 05/02/2017 Patient seen and examined this morning, INR 1.9. Hemodynamically stable, blood pressure 132/80 with a heart rate in the 90s, 99% on room air. Heart rate maintaining in the 80s at times low 90s. Patient has been ordered to receive 5 mg of Coumadin today. Objective - Vital Signs Vital signs: Vital Signs Temp 98 F 05/02/17 08:00 Pulse 90 05/02/17 08:00 Resp 18 05/02/17 08:00 BP 132/87 05/02/17 08:00 Pulse Ox 99 05/02/17 08:00 Intake & Output 05/01/17 05/02/17 05/02/17 18:59 06:59 18:59 Intake Total 726 450 Output Total 2300 Balance 726 -2300 450 Weight 101.5 kg 100.5 kg Intake: Oral 726 450 Output: Urine 2300 Other: Voiding Method Indwelling Catheter Indwelling Catheter Indwelling Catheter # Bowel Movements 1 - Exam PHYSICAL EXAMINATION: HEENT: Head is atraumatic, normocephalic. Pupils equal, round. Neck is supple. There is no elevated jugular venous pressure. HEART EXAMINATION: S1 and S2 systolic murmur is heard. CHEST EXAMINATION: Lungs are clear to auscultation and precussion. No chest wall tenderness is noted on palpation or with deep breathing. ABDOMEN: Soft, nontender. Bowel sounds are heard. No organomegaly noted. EXTREMITIES: 1+ peripheral pulses positive bilateral lower extremity cellulitis . NEUROLOGIC patient is awake, alert and oriented -2. . - Labs CBC & Chem 7: 05/02/17 05:48 05/02/17 05:48 Labs: Abnormal Lab Results - Last 24 Hours (Table) 05/01/17 05/01/17 05/02/17 Range/Units 16:47 21:06 05:48 Hgb 11.9 L (13.0-17.5) gm/dL MCHC 30.6 L (31.0-37.0) g/dL RDW 16.0 H (11.5-15.5) % Plt Count 129 L (150-450) k/uL Lymphocytes # 0.9 L (1.0-4.8) k/uL PT (9.0-12.0) sec INR (<1.2) Chloride (98-107) mmol/L Carbon Dioxide (22-30) mmol/L BUN (9-20) mg/dL Creatinine (0.66-1.25) mg/dL POC Glucose (mg/dL) 200 H 135 H (75-99) mg/dL 05/02/17 05/02/17 05/02/17 Range/Units 05:48 05:48 11:43 Hgb (13.0-17.5) gm/dL MCHC (31.0-37.0) g/dL RDW (11.5-15.5) % Plt Count (150-450) k/uL Lymphocytes # (1.0-4.8) k/uL PT 18.4 H (9.0-12.0) sec INR 1.9 H (<1.2) Chloride 112 H (98-107) mmol/L Carbon Dioxide 20 L (22-30) mmol/L BUN 22 H (9-20) mg/dL Creatinine 1.30 H (0.66-1.25) mg/dL POC Glucose (mg/dL) 144 H (75-99) mg/dL Microbiology - Last 24 Hours (Table) 04/25/17 17:44 Blood Culture - Final Blood No Growth after 144 hours 04/25/17 14:40 Blood Culture - Final Blood No Growth after 144 hours Assessment and Plan Plan: Assessment and plan #1 acute septic shock from cellulitis of the lower extremity #2 chronic persistent atrial fibrillation, on Coumadin for anticoagulation #3 acute psychosis, improving #4 hypertension #5 hyperlipidemia #6 history of mitral valve replacement #7 dementia Plan We will give the patient 5 mg of Coumadin today, continue other medications, check PT/INR in the morning. We will follow this patient with you now on an as- needed basis only, please don't hesitate to call with any questions. DNP note has been reviewed, I agree with a documented findings and plan of care. Patient was seen and examined.
--- NOTE | 2017-05-02 15:13 | P.PN ---
Subjective Progress Note Date: 05/02/17 Principal diagnosis: Acute septic shock and cellulitis of the right lower extremity This is a 72-year-old white male with history of multiple medical problems including osteoarthritis, hypertension, coronary artery disease and previous CABG, chronic atrial fibrillation, previous mitral valve replacement, history of dementia, patient presented to the ER yesterday with a few weeks history of right leg pain, redness, and swelling. The patient himself is a very poor historian, and he is very hard of hearing. Patient denies any trauma to the right lower extremity. Pain has been getting more severe and throbbing without radiation involving mostly the right lower extremity below the knee extending to the foot and toes. Patient denied any fever , however he had a temp of 102 on presentation. Patient was also noted noted to be hypotensive in the ER, required 4 L of fluid boluses and required placement on norepinephrine for few hours. His norepinephrine was discontinued 6 hours prior to my evaluation. His blood pressures seems to be relatively stable at this point. Patient was also on Cardizem and he remains on Cardizem at 5 mg per hour for atrial fibrillation and RVR. X-rays and CT of the right leg failed to show necrotizing fasciitis, they all showed mostly swelling of the soft tissue, and no evidence of abscess to drain. Considering the presentation of severe cellulitis involving the right lower extremity, and considering the hypotension requiring fluid boluses and norepinephrine, patient was admitted to the ICU and this consult was initiated. Patient is now on vancomycin and Zosyn, blood cultures are pending. Presently, the patient denies any headache, no blurred vision, no dizziness, denies any chest pain, no shortness of breath, no nausea no vomiting no abdominal pain. Patient is very hard of hearing, complaining of mostly severe pain of the right leg and the right foot, normally takes [place] at home for his pain control. On 04/27/2017, patient remains on antibiotics for his right lower extremity cellulitis and septic shock. Off norepinephrine, urine output is reasonable, patient is hemodynamically stable, cultures from the wound in the right lower extremity is positive for gram-negative bacilli. Blood cultures are pending. So far negative. WBC count is 14.0 hemoglobin is 11.8 electrolytes showed slightly low sodium of 129. Renal profile is improved with BUN of 52 creatinine is 1.11. Patient is not in any form of respiratory distress. On 04/28/2017, patient remains in the ICU, hemodynamically stable, however the patient has been experiencing intermittent episodes of agitation and hallucinations. Requiring multiple doses of Ativan last night, today I recommended starting the patient on Seroquel. A bit reluctant to start Haldol at this point yet. Patient continues to have significant cellulitis of the right lower extremity, he also seems to be developing significant amount of ecchymosis in lower abdomen, and there is some mottling noted in the left lower extremity as well as upper portion of the right upper extremity. Hence I have recommended stopping heparin, patient was already started on Coumadin yesterday. Platelets are a bit on the low side, patient had a previous bioprosthetic valve. His extreme agitation overnight seems to respond well to Ativan, and hopefully will do better with Seroquel. Patient remains on antibiotics as per infectious disease, his wound culture came back positive for gram-negative bacilli, blood cultures are negative, final sensitivity on the wound culture is pending. On 04/29/2017, patient remains in the ICU, hemodynamically stable, continues to have intermittent episodes of confusion said agitations as well as hallucinations. Last night patient was given Ativan, and for some reason he was not given his Seroquel dose which I ordered. Cultures were reviewed, and those are being addressed by infectious disease on the case. Labs were reviewed relatively normal CBC noted. INR is 2.3 electrolytes are relatively normal except for sodium of 131 BUN is 36 creatinine is 1.40. Wound culture is showing gram-negative bacilli, final at the education is pending. On 04/30/2017, patient remains in the ICU, however I plan to transfer the patient out of the ICU today. He remains hemodynamically stable, remains on the same antibiotics, his cellulitis in the right lower extremity seems to be improving, and the areas of erythema seems to be receding. The swelling seems to be improved and the tenderness is also improved. Clearly the patient is responding well to treatment. He is also doing well with the Seroquel as far as his mental status is concerned, overnight he was placed on BiPAP because of episodes of stop breathing and symptoms of obstructive sleep apnea syndrome with snoring. Tolerated the BiPAP of 12 and 4 quite well, and I plan to keep him on BiPAP while inpatient. Mental status seems to be also improving. CBC is relatively normal. No evidence of leukocytosis. INR is 4.6, hence Coumadin is presently on hold. Renal profile is improving creatinine is 1.0 today. Overall, I believe the patient is making a steady improvement. Hence I plan to transfer out of the ICU today. On 05/01/2017 patient is seen in follow-up on selective care floor. He is alert awake, however confused and restless. His fiance is at the bedside, she states patient has been trying to get up unassisted. Remains generally weak. This morning he set up on the edge of the bed and slid off the bed, he did not sustain any injuries. Lung sounds are clear to auscultation, no rhonchi no wheezes, no signs of chest congestion. His oxygenation is stable on room air, O2 sat at 97%. Hemodynamically stable, afebrile. Blood cultures have been negative since admission, urine culture has shown no growth. Wound culture of the right leg showed gram-negative bacilli. Patient continues on IV cefepime. On 05/02/2017 patient is seen in follow-up on selective care floor. He is resting in bed comfortably, currently on BiPAP machine or what seems to be obstructive sleep apnea syndrome. Less agitated today although continues to be confused. Lung sounds are clear, no rhonchi, no wheezes or rales noted on auscultation. Patient's heart rate is controlled, beta blockers have been increased to 3 times a day per cardiology. Patient's Coumadin has been resumed , INR today is 1.9 for which she will receive 5 mg of Coumadin. Creatinine is slightly better at 1.3 today. Right leg cellulitis is being followed by infectious diseases, patient is getting local wound care with Santyl and moist dressings and protective dressing, and IV cefepime. Start planning is in progress for placement to short-term subacute rehab. Objective - Vital Signs Vital signs: Vital Signs Temp 98 F 05/02/17 08:00 Pulse 90 05/02/17 08:00 Resp 18 05/02/17 08:00 BP 132/87 05/02/17 08:00 Pulse Ox 99 05/02/17 08:00 Intake & Output 05/01/17 05/02/17 05/02/17 18:59 06:59 18:59 Intake Total 726 1170 Output Total 2300 Balance 726 -2300 1170 Weight 101.5 kg 100.5 kg Intake: Oral 726 1170 Output: Urine 2300 Other: Voiding Method Indwelling Catheter Indwelling Catheter Indwelling Catheter # Bowel Movements 1 - Exam Exam General appearance: Field a 72-year-old white male in no distress. Hard of hearing. Head exam: Normocephalic, atraumatic. Looks slightly pale. Eye exam: PERRLA, EOMI, no icterus, pale and dry mucous membranes noted. ENT exam: Pale and dry mucous membranes, otherwise nasal mucosa and oral mucosa is normal. Throat is clear. Neck exam: Short neck, obese, supple, no masses, no JVD, no stridor. Respiratory exam: Clear, diminished at the bases, no rhonchi and no wheezes. No chest wall tenderness. Cardiovascular Exam: Regular rhythm, no S3 gallop, 2/6 systolic murmur throughout the precordium. GI/Abdominal exam: Soft nontender no megaly no rebound no guarding. Areas of ecchymosis noted in the abdominal wall at the site of heparin injections. Extremities exam: Significant improvement is noted in the swelling and erythema in right lower extremity. Back exam: Unremarkable. Neurological exam: Hard of hearing, otherwise no focal neurologic deficit. Psychiatric exam: Normal mood affect and normal mental status examination today. Skin: Erythema as noted involving the right leg. As noted above. - Labs CBC & Chem 7: 05/02/17 05:48 05/02/17 05:48 Labs: Abnormal Lab Results - Last 24 Hours (Table) 05/01/17 05/01/17 05/02/17 Range/Units 16:47 21:06 05:48 Hgb 11.9 L (13.0-17.5) gm/dL MCHC 30.6 L (31.0-37.0) g/dL RDW 16.0 H (11.5-15.5) % Plt Count 129 L (150-450) k/uL Lymphocytes # 0.9 L (1.0-4.8) k/uL PT (9.0-12.0) sec INR (<1.2) Chloride (98-107) mmol/L Carbon Dioxide (22-30) mmol/L BUN (9-20) mg/dL Creatinine (0.66-1.25) mg/dL POC Glucose (mg/dL) 200 H 135 H (75-99) mg/dL 05/02/17 05/02/17 05/02/17 Range/Units 05:48 05:48 11:43 Hgb (13.0-17.5) gm/dL MCHC (31.0-37.0) g/dL RDW (11.5-15.5) % Plt Count (150-450) k/uL Lymphocytes # (1.0-4.8) k/uL PT 18.4 H (9.0-12.0) sec INR 1.9 H (<1.2) Chloride 112 H (98-107) mmol/L Carbon Dioxide 20 L (22-30) mmol/L BUN 22 H (9-20) mg/dL Creatinine 1.30 H (0.66-1.25) mg/dL POC Glucose (mg/dL) 144 H (75-99) mg/dL Microbiology - Last 24 Hours (Table) 04/25/17 17:44 Blood Culture - Final Blood No Growth after 144 hours 04/25/17 14:40 Blood Culture - Final Blood No Growth after 144 hours Assessment and Plan Assessment: Assessment: Impression: 1 acute septic shock from cellulitis of the right lower extremity and right foot. Patient has now been switched to cefepime, Zosyn and vancomycin had been discontinued per ID recommendation. Patient demonstrated significant improvement while on antibiotics, IV fluids were given initially, was on a short course of pressors, and he was also placed on BiPAP for what seems to be obstructive sleep apnea syndrome. His agitation responded well to Seroquel. 2 chronic atrial fibrillation, improved. Presently on Lopressor at 25 mg by mouth 3 times a day. 3 acute ICU psychosis, patient is presently on Ativan, Seroquel was added, may have to consider Haldol or Precedex. 3 history of multiple comorbidities including hypertension, hyperlipidemia, osteoarthritis, previous CABG, history of mitral valve replacement, history of dementia, hard of hearing, history of respiratory failure secondary to bilateral pneumonia secondary to Haemophilus influenza back in 2014. Recommendation: Patient continues to make slow improvement in his progress. Less agitated today , but still confused. Continues on BiPAP support intermittently through the day and at bedtime for presumed sleep apnea. Continues on IV cefepime, local wound care dressing changes to the right lower leg cellulitis. Cardiology's recommendations have been noted and appreciated. Patient remains hemodynamically stable. Patient chemically cleared for discharge to ECF in the next 24 hours. I performed a history & physical examination of the patient and discussed their management with my nurse practitioner, Angélica Munson. I reviewed the nurse practitioner's note and agree with the documented findings and plan of care. Lung sounds are clear, no rhonchi, no rales, no wheezes. The findings and the impression was discussed with the patient. I attest to the documentation by the nurse practitioner. Time with Patient: Less than 30
[2017-05-02 16:45] LABS: Glucose,Whole Blood 185 mg/dL (75-99)
[2017-05-02] MEDS ORDERED: WARFARIN 5 MG TAB PO ONE (18:00)
[2017-05-02 21:07] LABS: Glucose,Whole Blood 187 mg/dL (75-99)
--- NOTE | 2017-05-02 21:44 | PN ---
PROGRESS NOTE DATE OF SERVICE: 05/02/2017 REASON FOR FOLLOWUP: Right leg wound and cellulitis. INTERVAL HISTORY: The patient is afebrile, has been breathing comfortably. Denies any chest pain or cough. No abdominal pain or any worsening pain in the right leg area. EXAMINATION: Blood pressure 122/77 with a pulse of 89, temperature of 98.1. He is 97% on room air. GENERAL DESCRIPTION: An elderly male lying in bed in no distress. RESPIRATORY SYSTEM: Unlabored breathing. Clear to auscultation anteriorly. HEART: S1, S2. Regular rate and rhythm. ABDOMEN: Soft. No tenderness. RIGHT LEG: Overall, swelling has slightly decreased. LABS: Hemoglobin is 11.9 with a white count of 7.8. BUN of 22, creatinine is 1.30. DIAGNOSTIC IMPRESSION AND PLAN: Patient with right leg cellulitis and did have superficial ulceration currently responding to cefepime. The patient will finish therapy with oral Cipro and Keflex for about a week to 10 days. Local wound care to the leg wound with Santyl followed by moist dressing. Continue supportive care. MMODL / IJN: [id number] /
[2017-05-03] MEDS: HYDROmorphone 1 MG/ML 1 ML SYRINGE IVP PRN (03:19)
[2017-05-03 06:04] LABS: Glucose,Whole Blood 158 mg/dL (75-99)
[2017-05-03 06:31] LABS: Anion Gap 4 mmol/L; Blood Urea Nitrogen 18 mg/dL (9-20); Calcium 8.2 mg/dL (8.4-10.2); Carbon Dioxide 19 mmol/L (22-30); Chloride 114 mmol/L (98-107); Glucose 119 mg/dL (74-99); Non-African American GFR(MDRD) >60 (>60 ml/min/1.73 sqM); Sodium 137 mmol/L (137-145)
[2017-05-03] MEDS: INSULIN ASPART 100 UNIT/ML 1 ML 10 ML VIAL SQ SCH ×4 (06:34→20:53)
[2017-05-03] MEDS: DEXTROSE 5%-0.9% NACL 1,000 ML IV SCH (06:34)
[2017-05-03 06:50] LABS: INR 2.1 (<1.2); Prothrombin Time 19.9 sec (9.0-12.0)
[2017-05-03] MEDS ORDERED: HYDROcodone/APAP 10-325MG 1 EACH TAB PO PRN (07:30)
[2017-05-03] MEDS: CEFEPIME 2 GM in SODIUM CHLORIDE 0.9% 50 ML IVPB SCH ×2 (08:58→20:52)
[2017-05-03] MEDS: COLLAGENASE 250 UNIT/GM OINTMENT 30 GM TUBE TOPICAL SCH (08:59)
[2017-05-03] MEDS: FUROSEMIDE 20 MG TAB PO SCH ×2 (09:08→16:43)
[2017-05-03] MEDS: METOPROLOL TARTRATE 50 MG TAB PO SCH ×2 (09:09→20:53)
[2017-05-03] MEDS: TAMSULOSIN 0.4 MG CAP.ER.24H PO SCH ×2 (09:09→20:26)
[2017-05-03] MEDS: QUEtiapine 25 MG TAB PO SCH ×2 (09:09→20:26)
[2017-05-03] MEDS: LISINOPRIL 10 MG TAB PO SCH (09:09)
[2017-05-03] MEDS: PANTOPRAZOLE 40 MG TABLET PO SCH (09:09)
[2017-05-03] MEDS: LORazepam 2 MG/ML INJ IV PRN (10:39)
--- NOTE | 2017-05-03 11:03 | P.PN ---
Subjective Progress Note Date: 05/03/17 04/26/2017 72-year-old male who presented to the emergency room on 04/25/2017 with a chief complaint of right leg pain. Apparently, the patient was experiencing severe right leg pains the night before he presented to the hospital and he decided to lay down on the floor and he laid there the entire day until he was brought by EMS to the hospital. The patient has a history of chronic wounds to his right leg. At his last visit to his PCP, it was noted that there were no open lesions. The patient also has a history of atrial fibrillation, GERD, hyperlipidemia, hypertension, CABG with mitral valve replacement, dementia, and benign prostatic hyperplasia. The patient was hospitalized in 2014 for bilateral pneumonia that required mechanical ventilation secondary to Haemophilus influenza. According to Dr. 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 In the emergency room, multiple xrays were completed. A right femur x-ray shows mild right hip osteonecrosis. X-ray of the tibia and fibula show small nonspecific knee joint effusion, no acute osseous abnormality, and soft tissue swelling greater towards the ankle. A foot x-ray was completed which shows marked dorsal soft tissue swelling but did not reveal acute osseous abnormalities. The patient was found to be in atrial fibrillation with rapid ventricular rate in the 150s. He was started on a Cardizem drip. He was also hypotensive with a systolic blood pressure in the 70s to 80s. He required multiple fluid boluses and was also started on vasopressors. His temperature was noted to be 101.4. White count on admission was 19.6. Hemoglobin 13.1. His sodium was low at 126. Potassium was slightly elevated at 5.2. BUN/ creatinine were also elevated. BUN was 44 and creatinine 1.4. Lactic acid was significantly elevated at 4.7. Troponin was 0.232. He was started on Zosyn and vancomycin. He was admitted to the intensive care unit under the care of Dr. Mireles. Consults were placed to youth liaison officer, Dr. García. Consults were also placed to infectious disease, cardiology, and orthopedics. The patient was seen and examined at the bedside with Dr. Mireles. The patient is very hard of hearing and states he is not wearing his hearing aides. His blood pressure is stable at this time with a systolic blood pressure ranging from 120 to 130. Per nursing, he has been off vasopressors since approximately 11 PM last night. He remains on a Cardizem drip at 5 mg an hour. His heart rate has improved and is ranging from 90-110. He remains on Zosyn and vancomycin. He is being followed by infectious disease. He is afebrile at this time. Urine cultures and blood cultures are currently pending. Wound culture from the right leg is also currently pending. He does continue to complain of pain in the right leg and foot. He denies any shortness of breath. He is maintaining an oxygen saturation greater than 92%. He denies chest pain or pressure. 04/27/2017 (Notes per Dr. Griffin) Patient is off pressor support. Currently on vancomycin and Zosyn. Off Cardizem drip as well heart rate is better controlled. Wound culture showed gram-negative bacilli Blood cultures showed no growth so far area leukocytosis improved to 14.0. Sodium level found to be 129 creatinine 1.11 currently patient is awake and oriented and mental status much improved. Patient does have underlying hearing difficulty. 04/28/2017 (Notes per Dr. Griffin) Patient was agitated and was hallucinating this morning. And also overnight. Patient was given IV Ativan. Currently patient is lying comfortably. Otherwise his sodium level improved to 130 today. Will continue IV fluids in the form of normal saline. Patient is still having significant lower extremity right-sided swelling and redness and to stage II ulcers. Leukocytosis improved to 13.0. Otherwise his renal function worsened with creatinine level increased from 1.1-1.3. Wound cultures so is showing gram-negative bacilli. No fever no chills. Blood cultures and urine cultures are still pending. 04/29/2017 (Notes per Dr. Griffin) Patient is currently on BiPAP. Patient did have apneic episodes in the morning today. Patient was given Ativan dose last night which has been discontinued now. Continued on Seroquel. Otherwise wound cultures showed gram-negative bacilli. ID and pulmonary is following. Otherwise patient is hemodynamically stable. Patient is a poor historian complete review of systems could not be obtained. 04/30/2017 (Notes per Dr. Griffin) Patient is more awake and oriented today. Hemodynamically stable. Denied any chest pain or worsening short of breath. Leg swelling and redness seems to be improved slightly. INR 4.6 today. Remains on antibiotics of vancomycin and Zosyn. Patient is being transferred to medical floor today. 05/01/2017 Patient seen and examined this morning by Dr. Mireles. Patient mentation seems to be slowly improving. He remains on seroquel. Blood pressure is stable. He is afebrile. He is maintaining oxygen saturations greater than 92% on room air. Patient is utilizing Bi-pap at night secondary to episodes of apnea while sleeping. He remains in atrial fibrillation with a controlled rate. He was started on Coumadin per cardiology. His Coumadin was held last night due to elevated INR 4.6. His INR this morning is 2.6. Scheduled to receive 1 mg of Coumadin tonight. He remains on cefepime 2 g every 12 hours per infectious disease. He is also receiving Santyl to lower extremity wounds with moist dressing changes. Case management and social work have been consulted regarding ECF placement. 05/02/2017 Patient seen and examined this morning on rounds with Dr. Mireles. Patient wearing Bipap during our examination, which he has been wearing at night secondary to periods of apnea while sleeping. He remains on room air during the day. Patients blood pressure is stable. He remains on metoprolol and his heart rate is ranging between 60 and 80. He is afebrile. INR this morning was 1.9. Patient is scheduled to receive 5mg of Coumadin tonight. The patient remains on Cefepime per infectious disease. Blood cultures are negative. Urine culture is negative. Wound culture is positive for gram negative bacilli, but no identification of organism is available. Spoke with Dr. Tucker regarding wound culture. No repeat culture is necessary. Case management and social work are continuing to work on discharge planning. Spoke with [place] social worker clinical, today and was updated on discharge planning. Patient's girlfriend has financial power of electrician underground on patient. The patient's sister has medical power of electrician underground but has given permission for the patient's 2 children to decide on which ECF they would like the patient to go. They are to update social work when they have made a decision. 05/03/2017 patient seen and examined this morning on rounds with Dr. Mireles. Patient had nose bleed this morning x2 episodes, which is common for patient. If it continues, will consult ENT for management. Patient appears more awake and alert today, but remains confused. His dilaudid was discontinued this morning and patient was placed back on his norco. He complains of pain in bilateral lower extremities, mainly closer to ankle and lower leg. He denies chest pain or shortness of breath. The patients INR this morning is 2.1. He is scheduled to receive 5mg of coumadin tonight. Objective - Vital Signs Vital signs: Vital Signs Temp 97 F L 05/03/17 09:08 Pulse 105 H 05/03/17 09:08 Resp 18 05/03/17 09:08 BP 132/92 05/03/17 09:08 Pulse Ox 98 05/03/17 09:08 Intake & Output 05/02/17 05/03/17 05/03/17 18:59 06:59 18:59 Intake Total 1420 580 Output Total 750 1700 Balance 670 -1700 580 Weight 103 kg Intake: Oral 1420 580 Output: Urine 750 1700 Uretheral (Franco) 1100 Other: Voiding Method Indwelling Catheter Indwelling Catheter Indwelling Catheter # Bowel Movements 1 - Exam GENERAL: This is a 72-year-old male in no apparent distress at the time of examination. He is very hard of hearing. Remains confused. HEENT: Head is atraumatic, normocephalic. Pupils are equal, round, and reactive to light. Sclerae anicteric. Conjunctivae are clear. Mucus membranes of the mouth are moist. Neck is supple. RESPIRATORY: Clear to ausculation, diminished at the bases. No wheezes, rales, or rhonchi. No use of accessory muscles. Patient maintaining oxygen saturation greater than 92%. No chest wall tenderness is noted on palpation or with deep breathing. CARDIOVASCULAR: Irregular. Rate controlled. shelter monitor shows atrial fibrillation. S1 and S2 noted. Systolic murmur auscultated. No JVD noted. No S3 or S4 noted. GASTROINTESTINAL: No distention noted. Abdomen soft and round. Normal active bowel sounds auscultated X 4 quadrants. No pain or tenderness noted upon palpation. INTEGUMENTARY: Right lower extremity swelling and erythema noted which is improving. Local wound care with Santyl and dressing noted. No jaundice. No rashes noted. EXTREMITIES: Decreased pedal pulses. No calf tenderness noted. Bilateral hands cool to touch with palpable pulses present. NEUROLOGIC: Cranial nerves II-XII intact. PSYCHIATRIC: Awake and alert, but remains confused. - Labs CBC & Chem 7: 05/02/17 05:48 05/03/17 05:35 Labs: Abnormal Lab Results - Last 24 Hours (Table) 05/02/17 05/02/17 05/02/17 Range/Units 11:43 16:42 21:05 PT (9.0-12.0) sec INR (<1.2) Chloride (98-107) mmol/L Carbon Dioxide (22-30) mmol/L Glucose (74-99) mg/dL POC Glucose (mg/dL) 144 H 185 H 187 H (75-99) mg/dL Calcium (8.4-10.2) mg/dL 05/03/17 05/03/17 05/03/17 Range/Units 05:35 05:35 06:00 PT 19.9 H (9.0-12.0) sec INR 2.1 H (<1.2) Chloride 114 H (98-107) mmol/L Carbon Dioxide 19 L (22-30) mmol/L Glucose 119 H (74-99) mg/dL POC Glucose (mg/dL) 158 H (75-99) mg/dL Calcium 8.2 L (8.4-10.2) mg/dL Assessment and Plan Plan: ASSESSMENT: Acute septic shock, present on admission, secondary to cellulitis of right lower extremity, improving Cellulitis of right lower extremity and foot, present on admission, improving Hypotension, secondary to sepsis, requiring vasopressors and fluid resuscitation , resolved Chronic atrial fibrillation, maintained on Lopressor and Digoxin outpatient, started on anticoagulation with Coumadin Atrial fibrillation with rapid ventricular rate, rate currently controlled with metoprolol Acute delirium/ICU psychosis, improving with seroquel History of coronary artery disease with previous CABG and mitral valve replacement Previous history of MRSA 2 History of bilateral pneumonia secondary to Haemophilus influenza requiring mechanical ventilation in 2015 Gastroesophageal reflux disease Hyperlipidemia Essential hypertension Osteoarthritis Dementia PLAN: -Patient may transfer to general medical floor with telemetry -Cardiology on consult. Appreciate recommendations and input -Continue metoprolol. Currently on 50 mg by mouth twice a day -Restart patients home dose of Digoxin per Dr. Mireles -Patient to receive 5mg coumadin tonight. recheck INR in AM. -Infectious disease on consult. Appreciate recommendations and input -Continue cefepime, No repeat wound culture necessary -Santyl and moist dressing to lower extremity wound -Continue seroquel 25mg BID. Ativan PRN. -Discontinue dilaudid. Will reorder patients home dose of [place] for pain -Obtain uric acid level -Discontinue urinary catheter. Culture tip -Discontinue IV fluid. Encourage PO intake. -Monitor labs -GI prophylaxis: Protonix 40 mg PO daily -DVT prophylaxis: Patient on coumadin -Monitor vital signs and address as appropriate -PT/OT -Case management/social work consulted -Discharge planning: Subacute rehab/ECF. [facility] -Further recommendations pending patient's clinical course Nurse practitioner note has been reviewed by physician. Signing provider agrees with the documented findings, assessment, and plan of care.
[2017-05-03 11:38] LABS: Glucose,Whole Blood 146 mg/dL (75-99)
[2017-05-03] MEDS: DIGOXIN 125 MCG TAB PO SCH (12:17)
[2017-05-03] MEDS: HYDROcodone/APAP 10-325MG 1 EACH TAB PO SCH ×3 (12:17→20:25)
--- NOTE | 2017-05-03 13:48 | P.PN ---
Subjective Progress Note Date: 05/03/17 Principal diagnosis: Acute septic shock and cellulitis of the right lower extremity This is a 72-year-old white male with history of multiple medical problems including osteoarthritis, hypertension, coronary artery disease and previous CABG, chronic atrial fibrillation, previous mitral valve replacement, history of dementia, patient presented to the ER yesterday with a few weeks history of right leg pain, redness, and swelling. The patient himself is a very poor historian, and he is very hard of hearing. Patient denies any trauma to the right lower extremity. Pain has been getting more severe and throbbing without radiation involving mostly the right lower extremity below the knee extending to the foot and toes. Patient denied any fever , however he had a temp of 102 on presentation. Patient was also noted noted to be hypotensive in the ER, required 4 L of fluid boluses and required placement on norepinephrine for few hours. His norepinephrine was discontinued 6 hours prior to my evaluation. His blood pressures seems to be relatively stable at this point. Patient was also on Cardizem and he remains on Cardizem at 5 mg per hour for atrial fibrillation and RVR. X-rays and CT of the right leg failed to show necrotizing fasciitis, they all showed mostly swelling of the soft tissue, and no evidence of abscess to drain. Considering the presentation of severe cellulitis involving the right lower extremity, and considering the hypotension requiring fluid boluses and norepinephrine, patient was admitted to the ICU and this consult was initiated. Patient is now on vancomycin and Zosyn, blood cultures are pending. Presently, the patient denies any headache, no blurred vision, no dizziness, denies any chest pain, no shortness of breath, no nausea no vomiting no abdominal pain. Patient is very hard of hearing, complaining of mostly severe pain of the right leg and the right foot, normally takes [place] at home for his pain control. On 04/27/2017, patient remains on antibiotics for his right lower extremity cellulitis and septic shock. Off norepinephrine, urine output is reasonable, patient is hemodynamically stable, cultures from the wound in the right lower extremity is positive for gram-negative bacilli. Blood cultures are pending. So far negative. WBC count is 14.0 hemoglobin is 11.8 electrolytes showed slightly low sodium of 129. Renal profile is improved with BUN of 52 creatinine is 1.11. Patient is not in any form of respiratory distress. On 04/28/2017, patient remains in the ICU, hemodynamically stable, however the patient has been experiencing intermittent episodes of agitation and hallucinations. Requiring multiple doses of Ativan last night, today I recommended starting the patient on Seroquel. A bit reluctant to start Haldol at this point yet. Patient continues to have significant cellulitis of the right lower extremity, he also seems to be developing significant amount of ecchymosis in lower abdomen, and there is some mottling noted in the left lower extremity as well as upper portion of the right upper extremity. Hence I have recommended stopping heparin, patient was already started on Coumadin yesterday. Platelets are a bit on the low side, patient had a previous bioprosthetic valve. His extreme agitation overnight seems to respond well to Ativan, and hopefully will do better with Seroquel. Patient remains on antibiotics as per infectious disease, his wound culture came back positive for gram-negative bacilli, blood cultures are negative, final sensitivity on the wound culture is pending. On 04/29/2017, patient remains in the ICU, hemodynamically stable, continues to have intermittent episodes of confusion said agitations as well as hallucinations. Last night patient was given Ativan, and for some reason he was not given his Seroquel dose which I ordered. Cultures were reviewed, and those are being addressed by infectious disease on the case. Labs were reviewed relatively normal CBC noted. INR is 2.3 electrolytes are relatively normal except for sodium of 131 BUN is 36 creatinine is 1.40. Wound culture is showing gram-negative bacilli, final at the education is pending. On 04/30/2017, patient remains in the ICU, however I plan to transfer the patient out of the ICU today. He remains hemodynamically stable, remains on the same antibiotics, his cellulitis in the right lower extremity seems to be improving, and the areas of erythema seems to be receding. The swelling seems to be improved and the tenderness is also improved. Clearly the patient is responding well to treatment. He is also doing well with the Seroquel as far as his mental status is concerned, overnight he was placed on BiPAP because of episodes of stop breathing and symptoms of obstructive sleep apnea syndrome with snoring. Tolerated the BiPAP of 12 and 4 quite well, and I plan to keep him on BiPAP while inpatient. Mental status seems to be also improving. CBC is relatively normal. No evidence of leukocytosis. INR is 4.6, hence Coumadin is presently on hold. Renal profile is improving creatinine is 1.0 today. Overall, I believe the patient is making a steady improvement. Hence I plan to transfer out of the ICU today. On 05/01/2017 patient is seen in follow-up on selective care floor. He is alert awake, however confused and restless. His fiance is at the bedside, she states patient has been trying to get up unassisted. Remains generally weak. This morning he set up on the edge of the bed and slid off the bed, he did not sustain any injuries. Lung sounds are clear to auscultation, no rhonchi no wheezes, no signs of chest congestion. His oxygenation is stable on room air, O2 sat at 97%. Hemodynamically stable, afebrile. Blood cultures have been negative since admission, urine culture has shown no growth. Wound culture of the right leg showed gram-negative bacilli. Patient continues on IV cefepime. On 05/02/2017 patient is seen in follow-up on selective care floor. He is resting in bed comfortably, currently on BiPAP machine or what seems to be obstructive sleep apnea syndrome. Less agitated today although continues to be confused. Lung sounds are clear, no rhonchi, no wheezes or rales noted on auscultation. Patient's heart rate is controlled, beta blockers have been increased to 3 times a day per cardiology. Patient's Coumadin has been resumed , INR today is 1.9 for which she will receive 5 mg of Coumadin. Creatinine is slightly better at 1.3 today. Right leg cellulitis is being followed by infectious diseases, patient is getting local wound care with Santyl and moist dressings and protective dressing, and IV cefepime. Start planning is in progress for placement to short-term subacute rehab. On 05/03/2017 patient is seen again on selective care floor. He is awake, alert , but confused. Apparently has been more restless. His Dilantin has been discontinued this morning, patient was placed back on [place] per attending. He complains of pain in his bilateral lower extremities, but denies any shortness of breath. His INR is therapeutic at 2.1, he will receive 5 mg of Coumadin tonight. Infectious disease service is following patient regarding his right leg cellulitis and sepsis. Patient continues on cefepime. After discharge the recommendation for him to have oral Cipro and Keflex for 7-10 days. Local wound care to the leg wound with Santyl and moist dressing. From our standpoint patient has been cleared for discharge to [facility] yesterday. Apparently initially patient was supposed to be going tomorrow would, however patient's family requested placement in [facility]. Objective - Vital Signs Vital signs: Vital Signs Temp 97 F L 05/03/17 09:08 Pulse 105 H 05/03/17 09:08 Resp 18 05/03/17 09:08 BP 132/92 05/03/17 09:08 Pulse Ox 98 05/03/17 09:08 Intake & Output 05/02/17 05/03/17 05/03/17 18:59 06:59 18:59 Intake Total 1420 630 Output Total 750 1700 520 Balance 670 -1700 110 Weight 103 kg Intake: Oral 1420 630 Output: Urine 750 1700 520 Uretheral (Franco) 1100 400 Other: Voiding Method Indwelling Catheter Indwelling Catheter Indwelling Catheter # Bowel Movements 1 - Exam Exam General appearance: Field a 72-year-old white male in no distress. Hard of hearing. Head exam: Normocephalic, atraumatic. Looks slightly pale. Eye exam: PERRLA, EOMI, no icterus, pale and dry mucous membranes noted. ENT exam: Pale and dry mucous membranes, otherwise nasal mucosa and oral mucosa is normal. Throat is clear. Neck exam: Short neck, obese, supple, no masses, no JVD, no stridor. Respiratory exam: Clear, diminished at the bases, no rhonchi and no wheezes. No chest wall tenderness. Cardiovascular Exam: Regular rhythm, no S3 gallop, 2/6 systolic murmur throughout the precordium. GI/Abdominal exam: Soft nontender no megaly no rebound no guarding. Areas of ecchymosis noted in the abdominal wall at the site of heparin injections. Extremities exam: Significant improvement is noted in the swelling and erythema in right lower extremity. Back exam: Unremarkable. Neurological exam: Hard of hearing, otherwise no focal neurologic deficit. Psychiatric exam: Normal mood affect and normal mental status examination today. Skin: Erythema as noted involving the right leg. As noted above. - Labs CBC & Chem 7: 05/02/17 05:48 05/03/17 05:35 Labs: Abnormal Lab Results - Last 24 Hours (Table) 05/02/17 05/02/17 05/03/17 Range/Units 16:42 21:05 05:35 PT 19.9 H (9.0-12.0) sec INR 2.1 H (<1.2) Chloride (98-107) mmol/L Carbon Dioxide (22-30) mmol/L Glucose (74-99) mg/dL POC Glucose (mg/dL) 185 H 187 H (75-99) mg/dL Calcium (8.4-10.2) mg/dL 05/03/17 05/03/17 05/03/17 Range/Units 05:35 06:00 11:37 PT (9.0-12.0) sec INR (<1.2) Chloride 114 H (98-107) mmol/L Carbon Dioxide 19 L (22-30) mmol/L Glucose 119 H (74-99) mg/dL POC Glucose (mg/dL) 158 H 146 H (75-99) mg/dL Calcium 8.2 L (8.4-10.2) mg/dL Assessment and Plan Assessment: Assessment: Impression: 1 acute septic shock from cellulitis of the right lower extremity and right foot. Patient has now been switched to cefepime, Zosyn and vancomycin had been discontinued per ID recommendation. Patient demonstrated significant improvement while on antibiotics, IV fluids were given initially, was on a short course of pressors, and he was also placed on BiPAP for what seems to be obstructive sleep apnea syndrome. His agitation responded well to Seroquel. 2 chronic atrial fibrillation, improved. Presently on Lopressor at 25 mg by mouth 3 times a day. 3 acute ICU psychosis, patient is presently on Ativan, Seroquel was added, may have to consider Haldol or Precedex. 3 history of multiple comorbidities including hypertension, hyperlipidemia, osteoarthritis, previous CABG, history of mitral valve replacement, history of dementia, hard of hearing, history of respiratory failure secondary to bilateral pneumonia secondary to Haemophilus influenza back in 2014. Plan: Patient continues to make improvement in his progress. Less agitated today, but still confused. Continues on BiPAP support intermittently through the day and at bedtime for presumed sleep apnea. Continues on IV cefepime, local wound care dressing changes to the right lower leg cellulitis. Cardiology's recommendations have been noted and appreciated. Patient remains hemodynamically stable. Patient cleared for discharge to [facility] in the next 24 hours. I performed a history & physical examination of the patient and discussed their management with my nurse practitioner, Angélica Munson. I reviewed the nurse practitioner's note and agree with the documented findings and plan of care. Lung sounds are clear, no rhonchi, no rales, no wheezes. The findings and the impression was discussed with the patient. I attest to the documentation by the nurse practitioner. Time with Patient: Less than 30
--- NOTE | 2017-05-03 14:12 | PN ---
PROGRESS NOTE DATE OF SERVICE: 05/03/2017 REASON FOR FOLLOWUP: Right leg wound cellulitis. INTERVAL HISTORY: The patient is afebrile. He is breathing comfortably. Denies having any chest pain or shortness of breath. No abdominal pain. There was pain in the right leg area. PHYSICAL EXAMINATION: Blood pressure 132/90 with a pulse of 105, temperature 97. He is 98% on room air. General description is an elderly male, lying in bed in no distress. RESPIRATORY SYSTEM: Unlabored breathing, clear to auscultation anteriorly. HEART: S1, S2. Regular rate and rhythm. ABDOMEN: Soft, no tenderness. LABS: BUN of 18, creatinine 1.09. DIAGNOSTIC IMPRESSION AND PLAN: Patient with right leg wound cellulitis. Culture did show gram-negative. Blood cultures were not finalized. Patient did well on cefepime. Plan to finish therapy with oral Cipro and Keflex for about a week. Local wound care to the leg wound with Santyl. INR needs to monitored closely while on antibiotic. Continue supportive care. MMODL / IJN: [id number] /
[2017-05-03 16:50] LABS: Glucose,Whole Blood 113 mg/dL (75-99)
[2017-05-03] MEDS ORDERED: WARFARIN 5 MG TAB PO ONE (18:00)
[2017-05-03] MEDS: ATORVASTATIN 10 MG TAB PO SCH (20:26)
[2017-05-03 20:40] LABS: Glucose,Whole Blood 143 mg/dL (75-99)
[2017-05-04] MEDS: LORazepam 2 MG/ML INJ IV PRN ×2 (00:21→21:40)
[2017-05-04] MEDS: HYDROcodone/APAP 10-325MG 1 EACH TAB PO SCH ×6 (00:39→21:44)
[2017-05-04 07:08] LABS: Glucose,Whole Blood 101 mg/dL (75-99)
[2017-05-04 08:03] LABS: INR 2.4 (<1.2); Prothrombin Time 22.8 sec (9.0-12.0)
[2017-05-04 08:07] LABS: Anisocytosis Slight; Basophils % (A) 0 %; CH 27.7; CHCM 31.7; Eosinophils % (A) 0 %; HCT 36.6 % (39.0-53.0); HDW 3.42; HGB 11.3 gm/dL (13.0-17.5); Hypochromasia Slight; Luc # (Auto) 0.18; Luc % (Auto) 2; Lymphocytes % (A) 10 %; MCHC 30.8 g/dL (31.0-37.0); MCV 87.6 fL (80.0-100.0); Mean Platelet Volume 7.3; Monocytes # (A) 0.4 k/uL (0-1.0); Monocytes % (A) 4 %; Neutrophils # (A) 8.3 k/uL (1.3-7.7); Neutrophils % (A) 83 %; Poikilocytosis Slight; RBC 4.18 m/uL (4.30-5.90); RDW 16.1 % (11.5-15.5); WBC (Perox) 10.13
[2017-05-04 08:12] LABS: Anion Gap 8 mmol/L; Blood Urea Nitrogen 17 mg/dL (9-20); Calcium 8.6 mg/dL (8.4-10.2); Carbon Dioxide 21 mmol/L (22-30); Chloride 110 mmol/L (98-107); Glucose 117 mg/dL (74-99); Non-African American GFR(MDRD) >60 (>60 ml/min/1.73 sqM); Potassium 3.7 mmol/L (3.5-5.1); Sodium 139 mmol/L (137-145)
[2017-05-04] MEDS: METOPROLOL TARTRATE 50 MG TAB PO SCH ×2 (09:01→21:45)
[2017-05-04] MEDS: QUEtiapine 25 MG TAB PO SCH ×2 (09:01→21:45)
[2017-05-04] MEDS: DIGOXIN 125 MCG TAB PO SCH (09:01)
[2017-05-04] MEDS: PANTOPRAZOLE 40 MG TABLET PO SCH (09:01)
[2017-05-04] MEDS: LISINOPRIL 10 MG TAB PO SCH (09:01)
[2017-05-04] MEDS: FUROSEMIDE 20 MG TAB PO SCH ×2 (09:01→17:40)
[2017-05-04] MEDS: COLLAGENASE 250 UNIT/GM OINTMENT 30 GM TUBE TOPICAL SCH (09:01)
[2017-05-04] MEDS: TAMSULOSIN 0.4 MG CAP.ER.24H PO SCH ×2 (09:01→21:45)
[2017-05-04] MEDS: INSULIN ASPART 100 UNIT/ML 1 ML 10 ML VIAL SQ SCH ×4 (09:02→21:44)
[2017-05-04] MEDS: CEFEPIME 2 GM in SODIUM CHLORIDE 0.9% 50 ML IVPB SCH (09:03)
[2017-05-04] MEDS ORDERED: CEPHALEXIN 500 MG CAP PO SCH (09:15)
--- NOTE | 2017-05-04 09:29 | P.PN ---
Subjective Progress Note Date: 05/04/17 04/26/2017 72-year-old male who presented to the emergency room on 04/25/2017 with a chief complaint of right leg pain. Apparently, the patient was experiencing severe right leg pains the night before he presented to the hospital and he decided to lay down on the floor and he laid there the entire day until he was brought by EMS to the hospital. The patient has a history of chronic wounds to his right leg. At his last visit to his PCP, it was noted that there were no open lesions. The patient also has a history of atrial fibrillation, GERD, hyperlipidemia, hypertension, CABG with mitral valve replacement, dementia, and benign prostatic hyperplasia. The patient was hospitalized in 2014 for bilateral pneumonia that required mechanical ventilation secondary to Haemophilus influenza. According to Dr. 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 In the emergency room, multiple xrays were completed. A right femur x-ray shows mild right hip osteonecrosis. X-ray of the tibia and fibula show small nonspecific knee joint effusion, no acute osseous abnormality, and soft tissue swelling greater towards the ankle. A foot x-ray was completed which shows marked dorsal soft tissue swelling but did not reveal acute osseous abnormalities. The patient was found to be in atrial fibrillation with rapid ventricular rate in the 150s. He was started on a Cardizem drip. He was also hypotensive with a systolic blood pressure in the 70s to 80s. He required multiple fluid boluses and was also started on vasopressors. His temperature was noted to be 101.4. White count on admission was 19.6. Hemoglobin 13.1. His sodium was low at 126. Potassium was slightly elevated at 5.2. BUN/ creatinine were also elevated. BUN was 44 and creatinine 1.4. Lactic acid was significantly elevated at 4.7. Troponin was 0.232. He was started on Zosyn and vancomycin. He was admitted to the intensive care unit under the care of Dr. Mireles. Consults were placed to section forest fire warden, Dr. García. Consults were also placed to infectious disease, cardiology, and orthopedics. The patient was seen and examined at the bedside with Dr. Mireles. The patient is very hard of hearing and states he is not wearing his hearing aides. His blood pressure is stable at this time with a systolic blood pressure ranging from 120 to 130. Per nursing, he has been off vasopressors since approximately 11 PM last night. He remains on a Cardizem drip at 5 mg an hour. His heart rate has improved and is ranging from 90-110. He remains on Zosyn and vancomycin. He is being followed by infectious disease. He is afebrile at this time. Urine cultures and blood cultures are currently pending. Wound culture from the right leg is also currently pending. He does continue to complain of pain in the right leg and foot. He denies any shortness of breath. He is maintaining an oxygen saturation greater than 92%. He denies chest pain or pressure. 04/27/2017 (Notes per Dr. Griffin) Patient is off pressor support. Currently on vancomycin and Zosyn. Off Cardizem drip as well heart rate is better controlled. Wound culture showed gram-negative bacilli Blood cultures showed no growth so far area leukocytosis improved to 14.0. Sodium level found to be 129 creatinine 1.11 currently patient is awake and oriented and mental status much improved. Patient does have underlying hearing difficulty. 04/28/2017 (Notes per Dr. Griffin) Patient was agitated and was hallucinating this morning. And also overnight. Patient was given IV Ativan. Currently patient is lying comfortably. Otherwise his sodium level improved to 130 today. Will continue IV fluids in the form of normal saline. Patient is still having significant lower extremity right-sided swelling and redness and to stage II ulcers. Leukocytosis improved to 13.0. Otherwise his renal function worsened with creatinine level increased from 1.1-1.3. Wound cultures so is showing gram-negative bacilli. No fever no chills. Blood cultures and urine cultures are still pending. 04/29/2017 (Notes per Dr. Griffin) Patient is currently on BiPAP. Patient did have apneic episodes in the morning today. Patient was given Ativan dose last night which has been discontinued now. Continued on Seroquel. Otherwise wound cultures showed gram-negative bacilli. ID and pulmonary is following. Otherwise patient is hemodynamically stable. Patient is a poor historian complete review of systems could not be obtained. 04/30/2017 (Notes per Dr. Griffin) Patient is more awake and oriented today. Hemodynamically stable. Denied any chest pain or worsening short of breath. Leg swelling and redness seems to be improved slightly. INR 4.6 today. Remains on antibiotics of vancomycin and Zosyn. Patient is being transferred to medical floor today. 05/01/2017 Patient seen and examined this morning by Dr. Mireles. Patient mentation seems to be slowly improving. He remains on seroquel. Blood pressure is stable. He is afebrile. He is maintaining oxygen saturations greater than 92% on room air. Patient is utilizing Bi-pap at night secondary to episodes of apnea while sleeping. He remains in atrial fibrillation with a controlled rate. He was started on Coumadin per cardiology. His Coumadin was held last night due to elevated INR 4.6. His INR this morning is 2.6. Scheduled to receive 1 mg of Coumadin tonight. He remains on cefepime 2 g every 12 hours per infectious disease. He is also receiving Santyl to lower extremity wounds with moist dressing changes. Case management and social work have been consulted regarding ECF placement. 05/02/2017 Patient seen and examined this morning on rounds with Dr. Mireles. Patient wearing Bipap during our examination, which he has been wearing at night secondary to periods of apnea while sleeping. He remains on room air during the day. Patients blood pressure is stable. He remains on metoprolol and his heart rate is ranging between 60 and 80. He is afebrile. INR this morning was 1.9. Patient is scheduled to receive 5mg of Coumadin tonight. The patient remains on Cefepime per infectious disease. Blood cultures are negative. Urine culture is negative. Wound culture is positive for gram negative bacilli, but no identification of organism is available. Spoke with Dr. Tucker regarding wound culture. No repeat culture is necessary. Case management and social work are continuing to work on discharge planning. Spoke with [facility] forensic social worker, today and was updated on discharge planning. Patient's girlfriend has financial power of transactional attorney on patient. The patient's sister has medical power of transactional attorney but has given permission for the patient's 2 children to decide on which ECF they would like the patient to go. They are to update social work when they have made a decision. 05/03/2017 patient seen and examined this morning on rounds with Dr. Mireles. Patient had nose bleed this morning x2 episodes, which is common for patient. If it continues, will consult ENT for management. Patient appears more awake and alert today, but remains confused. His dilaudid was discontinued this morning and patient was placed back on his norco. He complains of pain in bilateral lower extremities, mainly closer to ankle and lower leg. He denies chest pain or shortness of breath. The patients INR this morning is 2.1. He is scheduled to receive 5mg of coumadin tonight. 05/04/2017 Patient seen and examined at the bedside this morning with Dr. Mireles. Patient is awake and alert. Remains confused, which is patients baseline. Patients blood pressure remains stable. Heart rate is controlled. He is afebrile. Patients INR is 2.4 this morning. Will switch patient to PO cipro and keflex today. Discharge planning is in process and patient is scheduled to be discharged to [facility] tomorrow if he remains stable. Objective - Vital Signs Vital signs: Vital Signs Temp 97.0 F L 05/04/17 07:00 Pulse 94 05/04/17 07:00 Resp 18 05/04/17 07:00 BP 136/100 05/04/17 07:00 Pulse Ox 100 05/04/17 07:00 Intake & Output 05/03/17 05/04/17 05/04/17 18:59 06:59 18:59 Intake Total 680 2050 Output Total 520 Balance 160 2050 Intake: IV 1000 Dextrose 5%-0.9% NaCl 1, 1000 000 ml @ 100 mls/hr IV . Q10H JADON Rx#:[id number] Intake, IV Titration 50 1050 Amount Cefepime 2 gm In Sodium 50 50 Chloride 0.9% 50 ml @ 100 mls/hr IVPB Q12HR JADON Rx #:[id number] Dextrose 5%-0.9% NaCl 1, 1000 000 ml @ 100 mls/hr IV . Q10H JADON Rx#:[id number] Oral 630 Output: Urine 520 Uretheral (Franco) 400 Other: Voiding Method Diaper Urinal Incontinent Diaper Incontinent # Voids 2 4 # Bowel Movements 1 - Exam GENERAL: This is a 72-year-old male in no apparent distress at the time of examination. He is very hard of hearing. Remains confused. HEENT: Head is atraumatic, normocephalic. Pupils are equal, round, and reactive to light. Sclerae anicteric. Conjunctivae are clear. Mucus membranes of the mouth are moist. Neck is supple. RESPIRATORY: Clear to ausculation, diminished at the bases. No wheezes, rales, or rhonchi. No use of accessory muscles. Patient maintaining oxygen saturation greater than 92%. No chest wall tenderness is noted on palpation or with deep breathing. CARDIOVASCULAR: Irregular. Rate controlled. night monitor shows atrial fibrillation. S1 and S2 noted. Systolic murmur auscultated. No JVD noted. No S3 or S4 noted. GASTROINTESTINAL: No distention noted. Abdomen soft and round. Normal active bowel sounds auscultated X 4 quadrants. No pain or tenderness noted upon palpation. INTEGUMENTARY: Right lower extremity swelling and erythema noted which is improving. Local wound care with Santyl and dressing noted. No jaundice. No rashes noted. EXTREMITIES: Decreased pedal pulses. No calf tenderness noted. Bilateral hands cool to touch with palpable pulses present. NEUROLOGIC: Cranial nerves II-XII intact. PSYCHIATRIC: Awake and alert, but remains confused. - Labs CBC & Chem 7: 05/04/17 07:39 05/04/17 07:39 Labs: Abnormal Lab Results - Last 24 Hours (Table) 05/03/17 05/03/17 05/03/17 Range/Units 11:37 16:44 20:39 RBC (4.30-5.90) m/uL Hgb (13.0-17.5) gm/dL Hct (39.0-53.0) % MCHC (31.0-37.0) g/dL RDW (11.5-15.5) % Neutrophils # (1.3-7.7) k/uL PT (9.0-12.0) sec INR (<1.2) Chloride (98-107) mmol/L Carbon Dioxide (22-30) mmol/L Glucose (74-99) mg/dL POC Glucose (mg/dL) 146 H 113 H 143 H (75-99) mg/dL 05/04/17 05/04/17 05/04/17 Range/Units 06:51 07:39 07:39 RBC 4.18 L (4.30-5.90) m/uL Hgb 11.3 L (13.0-17.5) gm/dL Hct 36.6 L (39.0-53.0) % MCHC 30.8 L (31.0-37.0) g/dL RDW 16.1 H (11.5-15.5) % Neutrophils # 8.3 H (1.3-7.7) k/uL PT 22.8 H (9.0-12.0) sec INR 2.4 H (<1.2) Chloride (98-107) mmol/L Carbon Dioxide (22-30) mmol/L Glucose (74-99) mg/dL POC Glucose (mg/dL) 101 H (75-99) mg/dL 05/04/17 Range/Units 07:39 RBC (4.30-5.90) m/uL Hgb (13.0-17.5) gm/dL Hct (39.0-53.0) % MCHC (31.0-37.0) g/dL RDW (11.5-15.5) % Neutrophils # (1.3-7.7) k/uL PT (9.0-12.0) sec INR (<1.2) Chloride 110 H (98-107) mmol/L Carbon Dioxide 21 L (22-30) mmol/L Glucose 117 H (74-99) mg/dL POC Glucose (mg/dL) (75-99) mg/dL Microbiology - Last 24 Hours (Table) 05/03/17 10:55 Catheter Tip Culture - Preliminary Catheter Tip Assessment and Plan Plan: ASSESSMENT: Acute septic shock, present on admission, secondary to cellulitis of right lower extremity, improving Cellulitis of right lower extremity and foot, present on admission, improving Hypotension, secondary to sepsis, requiring vasopressors and fluid resuscitation , resolved Chronic atrial fibrillation, maintained on Lopressor and Digoxin outpatient, started on anticoagulation with Coumadin Atrial fibrillation with rapid ventricular rate, rate currently controlled with metoprolol Acute delirium/ICU psychosis, septic encephalopathy, improving with seroquel History of coronary artery disease with previous CABG and mitral valve replacement Previous history of MRSA 2, most recent infection was [address] Mireles History of bilateral pneumonia secondary to Haemophilus influenza requiring mechanical ventilation in 2014 Gastroesophageal reflux disease Hyperlipidemia Essential hypertension Osteoarthritis Dementia PLAN: -Patient to be discharged tomorrow to ECF if he remains stable -Cardiology on consult. Appreciate recommendations and input -Continue metoprolol. Currently on 50 mg by mouth twice a day -Infectious disease on consult. Appreciate recommendations and input -Change antibiotics to PO: Keflex and cipro -Santyl and moist dressing to lower extremity wound. -Continue [place] for pain control -Monitor labs -GI prophylaxis: Protonix 40 mg PO daily -DVT prophylaxis: Patient on coumadin -Monitor vital signs and address as appropriate -PT/OT -Discharge planning: Subacute rehab/ECF. [facility] Anticipate transfer tomorrow -Further recommendations pending patient's clinical course Nurse practitioner note has been reviewed by physician. Signing provider agrees with the documented findings, assessment, and plan of care.
[2017-05-04 10:44] VITALS: BMI 30.8
[2017-05-04] MEDS: CEPHALEXIN 500 MG CAP PO SCH ×3 (11:01→21:45)
[2017-05-04] MEDS: CIPROFLOXACIN HCL 500 MG TAB PO SCH ×2 (11:01→21:44)
[2017-05-04 11:21] LABS: Glucose,Whole Blood 194 mg/dL (75-99)
--- NOTE | 2017-05-04 13:22 | P.PN ---
Subjective Progress Note Date: 05/04/17 Principal diagnosis: Acute septic shock and cellulitis of the right lower extremity This is a 72-year-old white male with history of multiple medical problems including osteoarthritis, hypertension, coronary artery disease and previous CABG, chronic atrial fibrillation, previous mitral valve replacement, history of dementia, patient presented to the ER yesterday with a few weeks history of right leg pain, redness, and swelling. The patient himself is a very poor historian, and he is very hard of hearing. Patient denies any trauma to the right lower extremity. Pain has been getting more severe and throbbing without radiation involving mostly the right lower extremity below the knee extending to the foot and toes. Patient denied any fever , however he had a temp of 102 on presentation. Patient was also noted noted to be hypotensive in the ER, required 4 L of fluid boluses and required placement on norepinephrine for few hours. His norepinephrine was discontinued 6 hours prior to my evaluation. His blood pressures seems to be relatively stable at this point. Patient was also on Cardizem and he remains on Cardizem at 5 mg per hour for atrial fibrillation and RVR. X-rays and CT of the right leg failed to show necrotizing fasciitis, they all showed mostly swelling of the soft tissue, and no evidence of abscess to drain. Considering the presentation of severe cellulitis involving the right lower extremity, and considering the hypotension requiring fluid boluses and norepinephrine, patient was admitted to the ICU and this consult was initiated. Patient is now on vancomycin and Zosyn, blood cultures are pending. Presently, the patient denies any headache, no blurred vision, no dizziness, denies any chest pain, no shortness of breath, no nausea no vomiting no abdominal pain. Patient is very hard of hearing, complaining of mostly severe pain of the right leg and the right foot, normally takes Drain at home for his pain control. On 04/27/2017, patient remains on antibiotics for his right lower extremity cellulitis and septic shock. Off norepinephrine, urine output is reasonable, patient is hemodynamically stable, cultures from the wound in the right lower extremity is positive for gram-negative bacilli. Blood cultures are pending. So far negative. WBC count is 14.0 hemoglobin is 11.8 electrolytes showed slightly low sodium of 129. Renal profile is improved with BUN of 52 creatinine is 1.11. Patient is not in any form of respiratory distress. On 04/28/2017, patient remains in the ICU, hemodynamically stable, however the patient has been experiencing intermittent episodes of agitation and hallucinations. Requiring multiple doses of Ativan last night, today I recommended starting the patient on Seroquel. A bit reluctant to start Haldol at this point yet. Patient continues to have significant cellulitis of the right lower extremity, he also seems to be developing significant amount of ecchymosis in lower abdomen, and there is some mottling noted in the left lower extremity as well as upper portion of the right upper extremity. Hence I have recommended stopping heparin, patient was already started on Coumadin yesterday. Platelets are a bit on the low side, patient had a previous bioprosthetic valve. His extreme agitation overnight seems to respond well to Ativan, and hopefully will do better with Seroquel. Patient remains on antibiotics as per infectious disease, his wound culture came back positive for gram-negative bacilli, blood cultures are negative, final sensitivity on the wound culture is pending. On 04/29/2017, patient remains in the ICU, hemodynamically stable, continues to have intermittent episodes of confusion said agitations as well as hallucinations. Last night patient was given Ativan, and for some reason he was not given his Seroquel dose which I ordered. Cultures were reviewed, and those are being addressed by infectious disease on the case. Labs were reviewed relatively normal CBC noted. INR is 2.3 electrolytes are relatively normal except for sodium of 131 BUN is 36 creatinine is 1.40. Wound culture is showing gram-negative bacilli, final at the education is pending. On 04/30/2017, patient remains in the ICU, however I plan to transfer the patient out of the ICU today. He remains hemodynamically stable, remains on the same antibiotics, his cellulitis in the right lower extremity seems to be improving, and the areas of erythema seems to be receding. The swelling seems to be improved and the tenderness is also improved. Clearly the patient is responding well to treatment. He is also doing well with the Seroquel as far as his mental status is concerned, overnight he was placed on BiPAP because of episodes of stop breathing and symptoms of obstructive sleep apnea syndrome with snoring. Tolerated the BiPAP of 12 and 4 quite well, and I plan to keep him on BiPAP while inpatient. Mental status seems to be also improving. CBC is relatively normal. No evidence of leukocytosis. INR is 4.6, hence Coumadin is presently on hold. Renal profile is improving creatinine is 1.0 today. Overall, I believe the patient is making a steady improvement. Hence I plan to transfer out of the ICU today. On 05/01/2017 patient is seen in follow-up on selective care floor. He is alert awake, however confused and restless. His fiance is at the bedside, she states patient has been trying to get up unassisted. Remains generally weak. This morning he set up on the edge of the bed and slid off the bed, he did not sustain any injuries. Lung sounds are clear to auscultation, no rhonchi no wheezes, no signs of chest congestion. His oxygenation is stable on room air, O2 sat at 97%. Hemodynamically stable, afebrile. Blood cultures have been negative since admission, urine culture has shown no growth. Wound culture of the right leg showed gram-negative bacilli. Patient continues on IV cefepime. On 05/02/2017 patient is seen in follow-up on selective care floor. He is resting in bed comfortably, currently on BiPAP machine or what seems to be obstructive sleep apnea syndrome. Less agitated today although continues to be confused. Lung sounds are clear, no rhonchi, no wheezes or rales noted on auscultation. Patient's heart rate is controlled, beta blockers have been increased to 3 times a day per cardiology. Patient's Coumadin has been resumed , INR today is 1.9 for which she will receive 5 mg of Coumadin. Creatinine is slightly better at 1.3 today. Right leg cellulitis is being followed by infectious diseases, patient is getting local wound care with Santyl and moist dressings and protective dressing, and IV cefepime. Start planning is in progress for placement to short-term subacute rehab. On 05/03/2017 patient is seen again on selective care floor. He is awake, alert , but confused. Apparently has been more restless. His Dilantin has been discontinued this morning, patient was placed back on Drain per attending. He complains of pain in his bilateral lower extremities, but denies any shortness of breath. His INR is therapeutic at 2.1, he will receive 5 mg of Coumadin tonight. Infectious disease service is following patient regarding his right leg cellulitis and sepsis. Patient continues on cefepime. After discharge the recommendation for him to have oral Cipro and Keflex for 7-10 days. Local wound care to the leg wound with Santyl and moist dressing. From our standpoint patient has been cleared for discharge to [facility] yesterday. Apparently initially patient was supposed to be going tomorrow would, however patient's family requested placement in [facility]. On 05/04/2017 patient seen on medical surgical floor, resting in bed sleeping. Easily awakened to verbal stimuli, remains confused, which is apparently the patient's baseline. He has had no febrile episodes, he is on room air with O2 sat at 100%. His lung sounds are clear to auscultation, no rhonchi, no wheezes. The plan for him to be discharged to [facility] tomorrow. Objective - Vital Signs Vital signs: Vital Signs Temp 97.0 F L 05/04/17 07:00 Pulse 94 05/04/17 08:00 Resp 18 05/04/17 07:00 BP 136/100 05/04/17 07:00 Pulse Ox 100 05/04/17 07:00 Intake & Output 05/03/17 05/04/17 05/04/17 18:59 06:59 18:59 Intake Total 680 2050 Output Total 520 Balance 160 2050 Weight 103 kg Intake: IV 1000 Dextrose 5%-0.9% NaCl 1, 1000 000 ml @ 100 mls/hr IV . Q10H JADON Rx#:[id number] Intake, IV Titration 50 1050 Amount Cefepime 2 gm In Sodium 50 50 Chloride 0.9% 50 ml @ 100 mls/hr IVPB Q12HR JADON Rx #:[id number] Dextrose 5%-0.9% NaCl 1, 1000 000 ml @ 100 mls/hr IV . Q10H JADON Rx#:[id number] Oral 630 Output: Urine 520 Uretheral (Franco) 400 Other: Voiding Method Diaper Urinal Urinal Incontinent Diaper Diaper Incontinent Incontinent # Voids 2 4 # Bowel Movements 1 - Exam Exam General appearance: Field a 72-year-old white male in no distress. Hard of hearing. Head exam: Normocephalic, atraumatic. Looks slightly pale. Eye exam: PERRLA, EOMI, no icterus, pale and dry mucous membranes noted. ENT exam: Pale and dry mucous membranes, otherwise nasal mucosa and oral mucosa is normal. Throat is clear. Neck exam: Short neck, obese, supple, no masses, no JVD, no stridor. Respiratory exam: Clear, diminished at the bases, no rhonchi and no wheezes. No chest wall tenderness. Cardiovascular Exam: Regular rhythm, no S3 gallop, 2/6 systolic murmur throughout the precordium. GI/Abdominal exam: Soft nontender no megaly no rebound no guarding. Areas of ecchymosis noted in the abdominal wall at the site of heparin injections. Extremities exam: Significant improvement is noted in the swelling and erythema in right lower extremity. Back exam: Unremarkable. Neurological exam: Hard of hearing, otherwise no focal neurologic deficit. Psychiatric exam: Normal mood affect and normal mental status examination today. Skin: Erythema as noted involving the right leg. As noted above. - Labs CBC & Chem 7: 05/04/17 07:39 05/04/17 07:39 Labs: Abnormal Lab Results - Last 24 Hours (Table) 05/03/17 05/03/17 05/04/17 Range/Units 16:44 20:39 06:51 RBC (4.30-5.90) m/uL Hgb (13.0-17.5) gm/dL Hct (39.0-53.0) % MCHC (31.0-37.0) g/dL RDW (11.5-15.5) % Neutrophils # (1.3-7.7) k/uL PT (9.0-12.0) sec INR (<1.2) Chloride (98-107) mmol/L Carbon Dioxide (22-30) mmol/L Glucose (74-99) mg/dL POC Glucose (mg/dL) 113 H 143 H 101 H (75-99) mg/dL 05/04/17 05/04/17 05/04/17 Range/Units 07:39 07:39 07:39 RBC 4.18 L (4.30-5.90) m/uL Hgb 11.3 L (13.0-17.5) gm/dL Hct 36.6 L (39.0-53.0) % MCHC 30.8 L (31.0-37.0) g/dL RDW 16.1 H (11.5-15.5) % Neutrophils # 8.3 H (1.3-7.7) k/uL PT 22.8 H (9.0-12.0) sec INR 2.4 H (<1.2) Chloride 110 H (98-107) mmol/L Carbon Dioxide 21 L (22-30) mmol/L Glucose 117 H (74-99) mg/dL POC Glucose (mg/dL) (75-99) mg/dL 05/04/17 Range/Units 11:18 RBC (4.30-5.90) m/uL Hgb (13.0-17.5) gm/dL Hct (39.0-53.0) % MCHC (31.0-37.0) g/dL RDW (11.5-15.5) % Neutrophils # (1.3-7.7) k/uL PT (9.0-12.0) sec INR (<1.2) Chloride (98-107) mmol/L Carbon Dioxide (22-30) mmol/L Glucose (74-99) mg/dL POC Glucose (mg/dL) 194 H (75-99) mg/dL Microbiology - Last 24 Hours (Table) 05/03/17 10:55 Catheter Tip Culture - Preliminary Catheter Tip Assessment and Plan Assessment: Assessment: Impression: 1 acute septic shock from cellulitis of the right lower extremity and right foot. Patient has now been switched to cefepime, Zosyn and vancomycin had been discontinued per ID recommendation. Patient demonstrated significant improvement while on antibiotics, IV fluids were given initially, was on a short course of pressors, and he was also placed on BiPAP for what seems to be obstructive sleep apnea syndrome. His agitation responded well to Seroquel. 2 chronic atrial fibrillation, improved. Presently on Lopressor at 25 mg by mouth 3 times a day. 3 acute ICU psychosis, patient is presently on Ativan, Seroquel was added, may have to consider Haldol or Precedex. 3 history of multiple comorbidities including hypertension, hyperlipidemia, osteoarthritis, previous CABG, history of mitral valve replacement, history of dementia, hard of hearing, history of respiratory failure secondary to bilateral pneumonia secondary to Haemophilus influenza back in 2014. Plan: Patient continues to make improvement in his progress. Still confused, but no signs of agitation. Continues on IV cefepime, local wound care dressing changes to the right lower leg cellulitis. Maintaining stable oxygenation on room air. No specific complaints. Patient remains hemodynamically stable. Patient cleared for discharge to [facility] in the next 24 hours. I performed a history & physical examination of the patient and discussed their management with my nurse practitioner, Angélica Munson. I reviewed the nurse practitioner's note and agree with the documented findings and plan of care. Lung sounds are clear, no rhonchi, no rales, no wheezes. The findings and the impression was discussed with the patient. I attest to the documentation by the nurse practitioner. Time with Patient: Less than 30
--- NOTE | 2017-05-04 13:40 | CDI ---
In responding to this query, please exercise your independent professional judgment. The [facility] Coding Staff and Clinical Documentation Specialists appreciate your assistance in clarifying documentation, maintaining compliance with coding guidelines, accurately documenting patients condition and capturing severity of illness. The fact that a question is asked does not imply that any particular answer is desired or expected. Communication forms are a method of clarifying documentation and are not made part of the Legal Health Record. Thank you in advance for your clarification. Last Revision, April 2015 Nathalia Mensah [address] [place] [address] Documentation Clarification Form Date: 05/04/2017 1:24:00 PM From: Aysha Rodriguez CCS, CCDS Admit Date: 04/25/2017 3:58:00 PM Patient Name: Rob Carbajal Visit Number: [id number] Discharge Date: Dr. Nicho Mireles: Per the attending notes: "Acute delirium/ICU psychosis, improving with Seroquel. " History/Risk factors: Atrial Fibrillation, CAD status post CABG w/MVR, Hypertension, Bilateral pneumonia requiring mechanical ventilation secondary to Haemophilus influenza & MRSA. Clinical Indicators: Admitted with Gram negative Sepsis & Septic Shock secondary to RLE Cellulitis WBC 101.4^, P 140^, R 20, BP 94/78*, PO 93 ra Labs: WBC 19.6^, Neut 18.6^, Na 126*, K 5.2^, Cl 97*, CO2 19*, Gluc 349^, Lactic Acid 4.7^ Treatment: Broad spectrum antibiotics: IV Vancomycin, IV Zosyn, Heparin sq, IV fl 100, IV fluid boluses, IV MagSulf, O2 2Lnc - BiPAP with PO drop to 80 on 04/27 Consults: ID, Pulm/Critical Care, Cardiology In your professional opinion, can you please clarify the specific type of encephalopathy, if known? Anoxic Encephalopathy Hypertensive Encephalopathy Metabolic Encephalopathy Septic Encephalopathy Toxic Encephalopathy Traumatic Encephalopathy Other, please specify Unable to determine Please document in your progress notes and discharge summary in order to capture severity of illness and risk of mortality. Include clinical findings that support your diagnosis. FYI: Press F11 to launch patient chart. NALINI
[2017-05-04 17:11] LABS: Glucose,Whole Blood 106 mg/dL (75-99)
[2017-05-04] MEDS ORDERED: WARFARIN 5 MG TAB PO ONE (18:00)
--- NOTE | 2017-05-04 20:39 | PN ---
PROGRESS NOTE DATE OF SERVICE: 05/04/2017 REASON FOR FOLLOWUP: Right leg wound cellulitis. INTERVAL HISTORY: The patient is afebrile. Has been breathing comfortably. Denies any chest pain or shortness of breath. No cough. No abdominal pain or any worsening pain the right leg area. EXAMINATION: Blood pressure is 132/84 with a pulse of 82, temperature of 97. He is 99% on room air. General description is an elderly male lying in bed in no distress. RESPIRATORY SYSTEM: Unlabored breathing. Clear to auscultation anteriorly. HEART: S1, S2. Regular rate and rhythm. ABDOMEN: Soft. No tenderness. Right leg swelling and redness have improved. LABS: Hemoglobin 11.8, white count of 10 with a BUN of 17, creatinine 1.13. DIAGNOSTIC IMPRESSION AND PLAN: Patient with a right leg wound cellulitis with overall improvement. The patient currently on oral Cipro and Keflex. We will continue for about a week. We will apply Santyl to the leg wound and a dry dressing to the right foot wound followed by light Alban wrap. Continue supportive care. MMODL / IJN: [id number] /
[2017-05-04 20:57] LABS: Glucose,Whole Blood 142 mg/dL (75-99)
[2017-05-04] MEDS: ATORVASTATIN 10 MG TAB PO SCH (21:44)
[2017-05-05] MEDS: HYDROcodone/APAP 10-325MG 1 EACH TAB PO SCH ×3 (01:08→09:23)
[2017-05-05 07:09] LABS: Glucose,Whole Blood 95 mg/dL (75-99)
[2017-05-05 07:36] VITALS: BP 123/92; TEMP 97.9
[2017-05-05] MEDS: INSULIN ASPART 100 UNIT/ML 1 ML 10 ML VIAL SQ SCH (08:03)
[2017-05-05 08:23] LABS: Anisocytosis Slight; Basophils % (A) 0 %; CH 27.5; CHCM 32.7; Eosinophils % (A) 0 %; HCT 34.4 % (39.0-53.0); HDW 3.59; HGB 10.9 gm/dL (13.0-17.5); Hypochromasia Slight; Luc # (Auto) 0.21; Luc % (Auto) 2; Lymphocytes # (A) 1.1 k/uL (1.0-4.8); Lymphocytes % (A) 11 %; MCH 26.7 pg (25.0-35.0); MCHC 31.6 g/dL (31.0-37.0); MCV 84.5 fL (80.0-100.0); Mean Platelet Volume 7.4; Monocytes # (A) 0.5 k/uL (0-1.0); Monocytes % (A) 5 %; Neutrophils # (A) 8.3 k/uL (1.3-7.7); Neutrophils % (A) 82 %; Poikilocytosis Slight; RBC 4.07 m/uL (4.30-5.90); RDW 16.1 % (11.5-15.5); WBC 10.2 k/uL (3.8-10.6); WBC (Perox) 10.55
[2017-05-05 08:27] LABS: INR 2.4 (<1.2); Prothrombin Time 23.5 sec (9.0-12.0)
[2017-05-05 08:36] LABS: Anion Gap 7 mmol/L; Blood Urea Nitrogen 17 mg/dL (9-20); Calcium 8.2 mg/dL (8.4-10.2); Carbon Dioxide 20 mmol/L (22-30); Chloride 109 mmol/L (98-107); Glucose 86 mg/dL (74-99); Non-African American GFR(MDRD) >60 (>60 ml/min/1.73 sqM); Potassium 3.7 mmol/L (3.5-5.1); Sodium 136 mmol/L (137-145)
--- NOTE | 2017-05-05 08:59 | P.DS ---
Providers Date of admission: 04/25/17 15:58 Expected date of discharge: 05/05/17 Attending physician: Nicho Mireles Consults: 04/25/17 15:06 Consult Physician Stat Consulting Provider: Juan Daniel Tucker Consult Reason/Comments: Right leg infection, sepsis Do you want consulting provider notified?: Already Contacted 04/25/17 15:58 Consult Physician Stat Consulting Provider: Venessa Starks Consult Reason/Comments: critical care Do you want consulting provider notified?: Already Contacted Primary care physician: Nicho Mireles Hospital Course: 72-year-old male who presented to the emergency room on 04/25/2017 with a chief complaint of right leg pain. Apparently, the patient was experiencing severe right leg pains the night before he presented to the hospital and he decided to lay down on the floor and he laid there the entire day until he was brought by EMS to the hospital. The patient has a history of chronic wounds to his right leg. At his last visit to his PCP, it was noted that there were no open lesions. The patient also has a history of atrial fibrillation, GERD, hyperlipidemia, hypertension, CABG with mitral valve replacement, dementia, and benign prostatic hyperplasia. The patient was hospitalized in 2014 for bilateral pneumonia that required mechanical ventilation secondary to Haemophilus influenza. According to Dr. 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 In the emergency room, multiple xrays were completed. A right femur x-ray shows mild right hip osteonecrosis. X-ray of the tibia and fibula show small nonspecific knee joint effusion, no acute osseous abnormality, and soft tissue swelling greater towards the ankle. A foot x-ray was completed which shows marked dorsal soft tissue swelling but did not reveal acute osseous abnormalities. The patient was found to be in atrial fibrillation with rapid ventricular rate in the 150s. He was started on a Cardizem drip. He was also hypotensive with a systolic blood pressure in the 70s to 80s. He required multiple fluid boluses and was also started on vasopressors. His temperature was noted to be 101.4. White count on admission was 19.6. Hemoglobin 13.1. His sodium was low at 126. Potassium was slightly elevated at 5.2. BUN/ creatinine were also elevated. BUN was 44 and creatinine 1.4. Lactic acid was significantly elevated at 4.7. Troponin was 0.232. He was started on Zosyn and vancomycin. He was admitted to the intensive care unit under the care of Dr. Mireles. Consults were placed to boil[employer], Dr. García. Consults were also placed to infectious disease, cardiology, and orthopedics. The patients hemodynamics improved and the patient only required vasopressors very short term. Patients blood cultures remain negative. Wound culture was positive for gram negative bacilli. No identification was completed though on specific organism. Infectious disease is following the patient throughout hospitalization. He received cefepime and has since been transitioned to keflex and cipro. The patient is receiving Santyl with a moist dressing to his wounds on his right lower leg. His cellulitis has significantly improved and his pain is minimal in his lower extremities at this time. The patient is slightly confused at baseline. His mental status seemed to decline when he was in the intensive care unit and was experiencing ICU psychosis. The patient was placed on Ativan when necessary and was also placed on Seroquel which he responded to appropriately and his mentation is back to his baseline. The patient was started on Coumadin per cardiology for his chronic atrial fibrillation. His last INR was 2.4. The patient received 5 mg of Coumadin on his last dose. Case management and social work were consulted regarding discharge planning. drive worker stated that patient's girlfriend has financial power of erisa attorney on patient. The patient's sister has medical power of erisa attorney but has given permission for the patient's 2 children to decide on which ECF they would like the patient to go. The family requested the patient be transferred to [facility] for subacute rehab. The patient was deemed stable for discharge today per Dr. Mireles. DISCHARGE DIAGNOSIS: Acute septic shock, present on admission, secondary to cellulitis of right lower extremity, improving Cellulitis of right lower extremity and foot, present on admission, improving Hypotension, secondary to sepsis, requiring vasopressors and fluid resuscitation , resolved Chronic atrial fibrillation, maintained on Lopressor and Digoxin outpatient, started on anticoagulation with Coumadin Atrial fibrillation with rapid ventricular rate, rate currently controlled with metoprolol Acute delirium/ICU psychosis, septic encephalopathy, improving with seroquel History of coronary artery disease with previous CABG and mitral valve replacement Previous history of MRSA 2, most recent infection was [address] Mireles History of bilateral pneumonia secondary to Haemophilus influenza requiring mechanical ventilation in 2015 Gastroesophageal reflux disease Hyperlipidemia Essential hypertension Osteoarthritis Dementia Nurse practitioner note has been reviewed by physician. Signing provider agrees with the documented findings, assessment, and plan of care. Patient Condition at Discharge: Stable Plan - Discharge Summary New Discharge Prescriptions: New Acetaminophen Tab [Tylenol] 650 mg PO Q4HR PRN tab PRN Reason: Fever And/Or Mild Pain Cephalexin [Keflex] 500 mg PO TID #21 cap Ciprofloxacin HCl [Cipro] 500 mg PO BID #14 tab Collagenase [Santyl] 1 applic TOPICAL DAILY #1 applic QUEtiapine [SEROquel] 25 mg PO BID #60 tab Warfarin Sodium [Coumadin] 5 mg PO DAILY #30 tablet Albuterol Nebulized [Ventolin Nebulized] 2.5 mg INHALATION Q4H PRN #30 nebu PRN Reason: Shortness Of Breath Continue Digoxin [Lanoxin] 125 mcg PO DAILY Simvastatin [Zocor] 20 mg PO HS Metoprolol Tartrate [Lopressor] 50 mg PO BID tab Tamsulosin [Flomax] 0.4 mg PO BID cap.er.24h Lisinopril [Prinivil] 10 mg PO DAILY Furosemide [Lasix] 20 mg PO BID Hydrocodone/Acetaminophen [[place] 10-325] 1 tab PO Q4H #30 tablet Changed ALPRAZolam [Xanax] 0.25 mg PO DAILY PRN #30 tab PRN Reason: Anxiety Discharge Medication List Digoxin [Lanoxin] 125 mcg PO DAILY 12/29/14 [History] Simvastatin [Zocor] 20 mg PO HS 12/29/14 [History] Metoprolol Tartrate [Lopressor] 50 mg PO BID tab 01/09/15 [Rx] Tamsulosin [Flomax] 0.4 mg PO BID cap.er.24h 01/09/15 [Rx] Furosemide [Lasix] 20 mg PO BID 04/25/17 [History] Lisinopril [Prinivil] 10 mg PO DAILY 04/25/17 [History] ALPRAZolam [Xanax] 0.25 mg PO DAILY PRN #30 tab 05/05/17 [Rx] Acetaminophen Tab [Tylenol] 650 mg PO Q4HR PRN tab 05/05/17 [Rx] Albuterol Nebulized [Ventolin Nebulized] 2.5 mg INHALATION Q4H PRN #30 nebu [Rx] Cephalexin [Keflex] 500 mg PO TID #21 cap 05/05/17 [Rx] Ciprofloxacin HCl [Cipro] 500 mg PO BID #14 tab 05/05/17 [Rx] Collagenase [Santyl] 1 applic TOPICAL DAILY #1 applic 05/05/17 [Rx] Hydrocodone/Acetaminophen [[place] 10-325] 1 tab PO Q4H #30 tablet 05/05/17 [Rx] QUEtiapine [SEROquel] 25 mg PO BID #60 tab 05/05/17 [Rx] Warfarin Sodium [Coumadin] 5 mg PO DAILY #30 tablet 05/05/17 [Rx] Follow up Appointment(s)/Referral(s): Juan Daniel Tucker MD [STAFF PHYSICIAN] - 1 Week Nicho Mireles MD [Primary Care Provider] - 1 Week (1 week after DC from ECF) Ambulatory/Diagnostic Orders: Prothrombin Time INR [LAB.AMB] Time Frame: 3 Days, Location: Determined By Patient Patient Instructions/Handouts: Cellulitis (DC) Activity/Diet/Wound Care/Special Instructions: Sabi Boyle on discharge. No smoking, cessation information provided. Change positions every 2 hours while awake. Fall precautions. consistent carbohydrate diet lactose free Activity as tolerated patient is hard of hearing. He has his hearing aide with him and goes in his right ear decreased vision-patients glasses present with him Discharge Disposition: TRANSFER TO SNF/ECF
[2017-05-05] MEDS: FUROSEMIDE 20 MG TAB PO SCH (09:18)
[2017-05-05] MEDS: CIPROFLOXACIN HCL 500 MG TAB PO SCH (09:18)
[2017-05-05] MEDS: CEPHALEXIN 500 MG CAP PO SCH (09:18)
[2017-05-05] MEDS: QUEtiapine 25 MG TAB PO SCH (09:18)
[2017-05-05] MEDS: LISINOPRIL 10 MG TAB PO SCH (09:18)
[2017-05-05] MEDS: PANTOPRAZOLE 40 MG TABLET PO SCH (09:18)
[2017-05-05] MEDS: COLLAGENASE 250 UNIT/GM OINTMENT 30 GM TUBE TOPICAL SCH (09:19)
[2017-05-05] MEDS: METOPROLOL TARTRATE 50 MG TAB PO SCH (09:19)
[2017-05-05] MEDS: DIGOXIN 125 MCG TAB PO SCH (09:19)
[2017-05-05] MEDS: TAMSULOSIN 0.4 MG CAP.ER.24H PO SCH (09:19)
[2017-05-05 10:38] VITALS: PULSE 105; RESP 16
--- NOTE | 2017-05-05 10:55 | P.PN ---
Subjective Progress Note Date: 05/05/17 Principal diagnosis: Acute septic shock and cellulitis of the right lower extremity This is a 72-year-old white male with history of multiple medical problems including osteoarthritis, hypertension, coronary artery disease and previous CABG, chronic atrial fibrillation, previous mitral valve replacement, history of dementia, patient presented to the ER yesterday with a few weeks history of right leg pain, redness, and swelling. The patient himself is a very poor historian, and he is very hard of hearing. Patient denies any trauma to the right lower extremity. Pain has been getting more severe and throbbing without radiation involving mostly the right lower extremity below the knee extending to the foot and toes. Patient denied any fever , however he had a temp of 102 on presentation. Patient was also noted noted to be hypotensive in the ER, required 4 L of fluid boluses and required placement on norepinephrine for few hours. His norepinephrine was discontinued 6 hours prior to my evaluation. His blood pressures seems to be relatively stable at this point. Patient was also on Cardizem and he remains on Cardizem at 5 mg per hour for atrial fibrillation and RVR. X-rays and CT of the right leg failed to show necrotizing fasciitis, they all showed mostly swelling of the soft tissue, and no evidence of abscess to drain. Considering the presentation of severe cellulitis involving the right lower extremity, and considering the hypotension requiring fluid boluses and norepinephrine, patient was admitted to the ICU and this consult was initiated. Patient is now on vancomycin and Zosyn, blood cultures are pending. Presently, the patient denies any headache, no blurred vision, no dizziness, denies any chest pain, no shortness of breath, no nausea no vomiting no abdominal pain. Patient is very hard of hearing, complaining of mostly severe pain of the right leg and the right foot, normally takes Bowden at home for his pain control. On 04/27/2017, patient remains on antibiotics for his right lower extremity cellulitis and septic shock. Off norepinephrine, urine output is reasonable, patient is hemodynamically stable, cultures from the wound in the right lower extremity is positive for gram-negative bacilli. Blood cultures are pending. So far negative. WBC count is 14.0 hemoglobin is 11.8 electrolytes showed slightly low sodium of 129. Renal profile is improved with BUN of 52 creatinine is 1.11. Patient is not in any form of respiratory distress. On 04/28/2017, patient remains in the ICU, hemodynamically stable, however the patient has been experiencing intermittent episodes of agitation and hallucinations. Requiring multiple doses of Ativan last night, today I recommended starting the patient on Seroquel. A bit reluctant to start Haldol at this point yet. Patient continues to have significant cellulitis of the right lower extremity, he also seems to be developing significant amount of ecchymosis in lower abdomen, and there is some mottling noted in the left lower extremity as well as upper portion of the right upper extremity. Hence I have recommended stopping heparin, patient was already started on Coumadin yesterday. Platelets are a bit on the low side, patient had a previous bioprosthetic valve. His extreme agitation overnight seems to respond well to Ativan, and hopefully will do better with Seroquel. Patient remains on antibiotics as per infectious disease, his wound culture came back positive for gram-negative bacilli, blood cultures are negative, final sensitivity on the wound culture is pending. On 04/29/2017, patient remains in the ICU, hemodynamically stable, continues to have intermittent episodes of confusion said agitations as well as hallucinations. Last night patient was given Ativan, and for some reason he was not given his Seroquel dose which I ordered. Cultures were reviewed, and those are being addressed by infectious disease on the case. Labs were reviewed relatively normal CBC noted. INR is 2.3 electrolytes are relatively normal except for sodium of 131 BUN is 36 creatinine is 1.40. Wound culture is showing gram-negative bacilli, final at the education is pending. On 04/30/2017, patient remains in the ICU, however I plan to transfer the patient out of the ICU today. He remains hemodynamically stable, remains on the same antibiotics, his cellulitis in the right lower extremity seems to be improving, and the areas of erythema seems to be receding. The swelling seems to be improved and the tenderness is also improved. Clearly the patient is responding well to treatment. He is also doing well with the Seroquel as far as his mental status is concerned, overnight he was placed on BiPAP because of episodes of stop breathing and symptoms of obstructive sleep apnea syndrome with snoring. Tolerated the BiPAP of 12 and 4 quite well, and I plan to keep him on BiPAP while inpatient. Mental status seems to be also improving. CBC is relatively normal. No evidence of leukocytosis. INR is 4.6, hence Coumadin is presently on hold. Renal profile is improving creatinine is 1.0 today. Overall, I believe the patient is making a steady improvement. Hence I plan to transfer out of the ICU today. On 05/01/2017 patient is seen in follow-up on selective care floor. He is alert awake, however confused and restless. His fiance is at the bedside, she states patient has been trying to get up unassisted. Remains generally weak. This morning he set up on the edge of the bed and slid off the bed, he did not sustain any injuries. Lung sounds are clear to auscultation, no rhonchi no wheezes, no signs of chest congestion. His oxygenation is stable on room air, O2 sat at 97%. Hemodynamically stable, afebrile. Blood cultures have been negative since admission, urine culture has shown no growth. Wound culture of the right leg showed gram-negative bacilli. Patient continues on IV cefepime. On 05/02/2017 patient is seen in follow-up on selective care floor. He is resting in bed comfortably, currently on BiPAP machine or what seems to be obstructive sleep apnea syndrome. Less agitated today although continues to be confused. Lung sounds are clear, no rhonchi, no wheezes or rales noted on auscultation. Patient's heart rate is controlled, beta blockers have been increased to 3 times a day per cardiology. Patient's Coumadin has been resumed , INR today is 1.9 for which she will receive 5 mg of Coumadin. Creatinine is slightly better at 1.3 today. Right leg cellulitis is being followed by infectious diseases, patient is getting local wound care with Santyl and moist dressings and protective dressing, and IV cefepime. Start planning is in progress for placement to short-term subacute rehab. The patient is seen again today 05/05/2017 in follow-up on the regular medical floor. He is awake and alert in no acute distress. He does have some complaints of shortness of breath. He does utilize the BiPAP throughout the evening. He is maintaining good O2 saturations in the high 90s on room air currently. His heart rate is better controlled. His INR is therapeutic at 2.4. He is on oral Lasix. Oral antibiotics in the form of Cipro and Keflex. The plan is for transfer to [facility] today. Objective - Vital Signs Vital signs: Vital Signs Temp 97.9 F 05/05/17 07:00 Pulse 105 H 05/05/17 08:00 Resp 16 05/05/17 08:00 BP 123/92 05/05/17 07:00 Pulse Ox 100 05/05/17 07:00 Intake & Output 05/04/17 05/05/17 05/05/17 18:59 06:59 18:59 Output Total 120 Balance -120 Weight 103 kg Output: Urine 120 Other: Voiding Method Urinal Urinal Urinal Diaper Diaper Diaper Incontinent Incontinent Incontinent # Voids 4 3 - Exam General appearance: Field a 72-year-old white male in no distress. Hard of hearing. Head exam: Normocephalic, atraumatic. Looks slightly pale. Eye exam: PERRLA, EOMI, no icterus, pale and dry mucous membranes noted. ENT exam: Pale and dry mucous membranes, otherwise nasal mucosa and oral mucosa is normal. Throat is clear. Neck exam: Short neck, obese, supple, no masses, no JVD, no stridor. Respiratory exam: Clear, diminished at the bases, no rhonchi and no wheezes. No chest wall tenderness. Cardiovascular Exam: Regular rhythm, no S3 gallop, 2/6 systolic murmur throughout the precordium. GI/Abdominal exam: Soft nontender no megaly no rebound no guarding. Areas of ecchymosis noted in the abdominal wall at the site of heparin injections. Extremities exam: Significant improvement is noted in the swelling and erythema in right lower extremity. Back exam: Unremarkable. Neurological exam: Hard of hearing, otherwise no focal neurologic deficit. Psychiatric exam: Normal mood affect and normal mental status examination today. Skin: Erythema as noted involving the right leg. As noted above. - Labs CBC & Chem 7: 05/05/17 07:41 05/05/17 07:41 Labs: Abnormal Lab Results - Last 24 Hours (Table) 05/04/17 05/04/17 05/04/17 Range/Units 11:18 17:09 20:55 RBC (4.30-5.90) m/uL Hgb (13.0-17.5) gm/dL Hct (39.0-53.0) % RDW (11.5-15.5) % Neutrophils # (1.3-7.7) k/uL PT (9.0-12.0) sec INR (<1.2) Sodium (137-145) mmol/L Chloride (98-107) mmol/L Carbon Dioxide (22-30) mmol/L POC Glucose (mg/dL) 194 H 106 H 142 H (75-99) mg/dL Calcium (8.4-10.2) mg/dL 05/05/17 05/05/17 05/05/17 Range/Units 07:41 07:41 07:41 RBC 4.07 L (4.30-5.90) m/uL Hgb 10.9 L (13.0-17.5) gm/dL Hct 34.4 L (39.0-53.0) % RDW 16.1 H (11.5-15.5) % Neutrophils # 8.3 H (1.3-7.7) k/uL PT 23.5 H (9.0-12.0) sec INR 2.4 H (<1.2) Sodium 136 L (137-145) mmol/L Chloride 109 H (98-107) mmol/L Carbon Dioxide 20 L (22-30) mmol/L POC Glucose (mg/dL) (75-99) mg/dL Calcium 8.2 L (8.4-10.2) mg/dL Assessment and Plan Assessment: Impression: 1 acute septic shock from cellulitis of the right lower extremity and right foot. Patient has now been switched to cefepime, Zosyn and vancomycin had been discontinued per ID recommendation. Patient demonstrated significant improvement while on antibiotics, IV fluids were given initially, was on a short course of pressors, and he was also placed on BiPAP for what seems to be obstructive sleep apnea syndrome. His agitation responded well to Seroquel. He covered. 2 chronic atrial fibrillation, improved. Presently on Lopressor at 25 mg by mouth 3 times a day. Rate improved. Anti coagulated with warfarin, INR therapeutic at 2.4. 3 acute ICU psychosis, patient is presently on Ativan, Seroquel was added, may have to consider Haldol or Precedex. Improved. 3 history of multiple comorbidities including hypertension, hyperlipidemia, osteoarthritis, previous CABG, history of mitral valve replacement, history of dementia, hard of hearing, history of respiratory failure secondary to bilateral pneumonia secondary to Haemophilus influenza back in 2015. Recommendation: The patient was seen and evaluated by Dr. Daniel. He is cleared for discharge from the pulmonary standpoint. The plan is for transfer to [facility]. Continue with his current medications. I, the cosigning physician, have performed a history and physical examination on the patient. Lung sounds are clear. Maintaining good O2 saturations in the 90s on room air. I have discussed the assessment and plan of care with my nurse practitioner, Karen Lucero. I attest the above documented note as dictated by her.
[2017-05-05] MEDS ORDERED: WARFARIN 5 MG TAB PO ONE (18:00)
== END 2017-05-05 11:38 | DRG 871 ==
LOC: EC 14:09 → 6ICU 15:58 → 6SEL 04-30 20:05 → 4MS4W 05-03 14:25
PROVIDERS: ADMIT Family Medicine; ATTEND Family Medicine
DX: A40.9 Streptococcal sepsis, unspecified (principal); G93.41 Metabolic encephalopathy; R65.21 Severe sepsis with septic shock; N17.9 Acute kidney failure, unspecified; E11.622 Type 2 diabetes mellitus with other skin ulcer; I48.1 Persistent atrial fibrillation; F03.90 Unspecified dementia, unspecified severity, without behavioral disturbance, psychotic disturbance, mood disturbance, and anxiety; I48.2 Chronic atrial fibrillation; L97.919 Non-pressure chronic ulcer of unspecified part of right lower leg with unspecified severity; E86.0 Dehydration; I10 Essential (primary) hypertension; M87.9 Osteonecrosis, unspecified; L03.115 Cellulitis of right lower limb; F23 Brief psychotic disorder; L03.116 Cellulitis of left lower limb; I83.019 Varicose veins of right lower extremity with ulcer of unspecified site; E78.5 Hyperlipidemia, unspecified; F17.200 Nicotine dependence, unspecified, uncomplicated; F28 Other psychotic disorder not due to a substance or known physiological condition; G47.33 Obstructive sleep apnea (adult) (pediatric); G89.29 Other chronic pain; H91.90 Unspecified hearing loss, unspecified ear; I25.10 Atherosclerotic heart disease of native coronary artery without angina pectoris; I87.8 Other specified disorders of veins; K21.9 Gastro-esophageal reflux disease without esophagitis; M19.90 Unspecified osteoarthritis, unspecified site; R79.1 Abnormal coagulation profile; Z79.01 Long term (current) use of anticoagulants; Z79.899 Other long term (current) drug therapy; Z86.14 Personal history of Methicillin resistant Staphylococcus aureus infection; Z95.1 Presence of aortocoronary bypass graft; Z95.2 Presence of prosthetic heart valve; Z95.5 Presence of coronary angioplasty implant and graft; Z96.1 Presence of intraocular lens
CPT/HCPCS: 36415; 51702; 71010; 71020; 80048; 80053; 80202; 81001; 82550; 82553; 83036; 83605; 83735; 84100; 84484; 84550; 85025; 85610; 85730; 87040; 87070; 87086; 87205; 87324; 93005; 93306; 94660; 96361; 96365; 96375; 99291